=== PATIENT | male | born 1960 | race Caucasian/White ===

== ENCOUNTER 2017-07-31 11:02 | Observation (INO) | payer OTHER ==
--- NOTE | 2017-07-31 11:32 | PDOC ---
History of Present Illness - General Stated Complaint: AMS Time Seen by Provider: 07/31/17 11:32 - History of Present Illness Initial Comments: 07/31/17 11:59 Mr. Escalante is a 57 yo male with pmh of obesity, combined systolic and diastolic heart failure, CKD with anemia, Hyperlipidemia, HTN, GERD, pancytopenia, and fatty liver disease who presents from [facility] for evaluation after he was found to be more lethargic than normal. Per nursing staff he has difficulty ambulating at baseline but is typically AOx3. On exam he keeps repeating he was brought here "via [facility]" and mentions demons as well. Allergies: NKDA Past History - Past Medical History Allergies/Adverse Reactions: Allergies Allergy/AdvReac Type Severity Reaction Status Date / Time No Known Allergies Allergy Verified 06/22/13 17:49 Home Medications: Ambulatory Orders Loratadine [Claritin -] 10 mg PO DAILY 06/22/13 Carvedilol [Coreg -] 3.125 mg PO BID 07/31/17 Ferrous Sulfate [Feosol] 325 mg PO BID 07/31/17 Furosemide [Lasix] 20 mg PO BID 07/31/17 Magnesium Oxide [Magnesium] 400 mg PO BID 07/31/17 HTN: Yes Hypercholesterolemia: Yes - Suicide/Smoking/Psychosocial Hx Smoking Status: No Smoking History: Current some day smoker Cigars Per Day: 3 Review of Systems - Review of Systems Comments:: 07/31/17 12:05 Unable to obtain *Physical Exam - Physical Exam Comments: 07/31/17 12:11 GENERAL: Arousable but lethargic. Oriented to self only. Patient's skin yellow in appearance. HEAD: No signs of trauma, normocephalic, atraumatic EYES: PERRLA, EOMI, sclera anicteric, conjunctiva clear ENT: Auricles normal inspection, hearing grossly normal, nares patent, oropharynx clear without exudates. Moist mucosa NECK: Normal ROM, supple, no lymphadenopathy, JVD, or masses LUNGS: No distress, speaks full sentences, clear to auscultation bilaterally HEART: Regular rate and rhythm, normal S1 and S2, no murmurs, rubs or gallops, peripheral pulses normal and equal bilaterally. ABDOMEN: Soft, nontender, normoactive bowel sounds. No guarding, no rebound. No masses EXTREMITIES: +LLE and RLE wrapped with pressure stocking - no NEUROLOGICAL: Cranial nerves II through XII grossly intact. Normal speech, normal gait, no focal sensorimotor deficits SKIN: Warm, Dry, normal turgor, no rashes or lesions noted. 07/31/17 15:36 07/31/17 15:36 ED Treatment Course - LABORATORY CBC & Chemistry Diagram: 07/31/17 13:15 07/31/17 13:15 Medical Decision Making - Medical Decision Making 07/31/17 15:40 Full AMS workup begun on patient as was unable to provide history. Labs revealed ammonia 154.15, AST 67, BUN 28. Will admit patient for hyperammonemia treatment. Discussed patient with PCP's (Dr. Morales) partner Dr. Lau. Agreed with plan. Laboratory Results - last 24 hr 07/31/17 07/31/17 07/31/17 13:15 13:15 13:15 WBC 4.0 RBC 3.33 L Hgb 10.9 L Hct 31.2 L MCV 93.7 MCH 32.7 MCHC 35.0 RDW 15.4 Plt Count 50 L MPV 8.2 Neutrophils % 65.6 Lymphocytes % 15.1 Monocytes % 8.6 Eosinophils % 10.0 H Basophils % 0.7 PT with INR 18.40 H INR 1.63 H PTT (Actin FS) 37.0 H Sodium Potassium Chloride Carbon Dioxide Anion Gap BUN Creatinine Creat Clearance w eGFR Random Glucose Lactic Acid Calcium Total Bilirubin AST ALT Alkaline Phosphatase Ammonia Creatine Kinase Troponin I Total Protein Albumin Urine Color Yellow Urine Appearance Clear Urine pH 7.0 Ur Specific [place] 1.012 Urine Protein Negative Urine Glucose (UA) Negative Urine Ketones Negative Urine Blood 1+ H Urine Nitrite Negative Urine Bilirubin Negative Urine Urobilinogen 2.0 Urine WBC (Auto) None Urine RBC (Auto) 3 Ur Epithelial Cells Rare Salicylates Opiates Screen Methadone Screen Acetaminophen Barbiturate Screen Phencyclidine Screen Ur Amphetamines Screen MDMA (Ecstasy) Screen Benzodiazepines Screen Cocaine Screen U Marijuana (THC) Screen Blood Type Antibody Screen 07/31/17 07/31/17 07/31/17 13:15 13:15 13:15 WBC RBC Hgb Hct MCV MCH MCHC RDW Plt Count MPV Neutrophils % Lymphocytes % Monocytes % Eosinophils % Basophils % PT with INR INR PTT (Actin FS) Sodium 141 Potassium 4.8 Chloride 111 H Carbon Dioxide 26 Anion Gap 4 L BUN 28 H Creatinine 1.3 Creat Clearance w eGFR 56.50 Random Glucose 101 Lactic Acid Calcium 7.7 L Total Bilirubin 2.6 H AST 67 H ALT 29 Alkaline Phosphatase 100 Ammonia Creatine Kinase 83 Troponin I < 0.02 Total Protein 8.0 Albumin 1.9 L Urine Color Urine Appearance Urine pH Ur Specific [place] Urine Protein Urine Glucose (UA) Urine Ketones Urine Blood Urine Nitrite Urine Bilirubin Urine Urobilinogen Urine WBC (Auto) Urine RBC (Auto) Ur Epithelial Cells Salicylates < 4.0 Opiates Screen Methadone Screen Acetaminophen < 2.0 L Barbiturate Screen Phencyclidine Screen Ur Amphetamines Screen MDMA (Ecstasy) Screen Benzodiazepines Screen Cocaine Screen U Marijuana (THC) Screen Blood Type O POSITIVE Antibody Screen Negative 07/31/17 07/31/17 07/31/17 13:15 13:15 13:15 WBC RBC Hgb Hct MCV MCH MCHC RDW Plt Count MPV Neutrophils % Lymphocytes % Monocytes % Eosinophils % Basophils % PT with INR INR PTT (Actin FS) Sodium Potassium Chloride Carbon Dioxide Anion Gap BUN Creatinine Creat Clearance w eGFR Random Glucose Lactic Acid 1.7 Calcium Total Bilirubin AST ALT Alkaline Phosphatase Ammonia 154.15 H Creatine Kinase Troponin I Total Protein Albumin Urine Color Urine Appearance Urine pH Ur Specific [place] Urine Protein Urine Glucose (UA) Urine Ketones Urine Blood Urine Nitrite Urine Bilirubin Urine Urobilinogen Urine WBC (Auto) Urine RBC (Auto) Ur Epithelial Cells Salicylates Opiates Screen Negative Methadone Screen Negative Acetaminophen Barbiturate Screen Negative Phencyclidine Screen Negative Ur Amphetamines Screen Negative MDMA (Ecstasy) Screen Negative Benzodiazepines Screen Negative Cocaine Screen Negative U Marijuana (THC) Screen Negative Blood Type Antibody Screen *DC/Admit/Observation/Transfer Diagnosis at time of Disposition: Hyperammonemia - Discharge Dispostion Admit: Yes - Referrals Referrals: Valentine Morales MD [Primary Care Provider] - - Patient Instructions - Post Discharge Activity
--- NOTE | 2017-07-31 12:09 | PDOC ---
Attending Attestation - Resident Resident Name: Jose Dumont - ED Attending Attestation I have performed the following: I have examined & evaluated the patient, The case was reviewed & discussed with the resident, I agree w/resident's findings & plan, Exceptions are as noted - HPI HPI: 57 yo M history obesity, CHF, CKD, HL, HTN, GERD, pancytopenia, fatty liver sent by [facility] for lethargy. Patient does not offer history except to say he was sent by [facility]. - Physicial Exam PE: GENERAL: Awake, alert, in no acute distress. Oriented to person. +Jaundice. HEAD: No signs of trauma EYES: PERRLA, EOMI, sclera anicteric, conjunctiva clear ENT: Auricles normal inspection, hearing grossly normal, nares patent, oropharynx clear without exudates. Moist mucosa NECK: Normal ROM, supple, no lymphadenopathy, JVD, or masses LUNGS: Breath sounds equal, clear to auscultation bilaterally. No wheezes, and no crackles HEART: Regular rate and rhythm, normal S1 and S2, no murmurs, rubs or gallops ABDOMEN: Soft, nontender, normoactive bowel sounds. No guarding, no rebound. No masses EXTREMITIES: Normal range of motion, no edema. No clubbing or cyanosis. No cords, erythema, or tenderness NEUROLOGICAL: Cranial nerves II through XII grossly intact. Motor and sensation intact. Gait not tested due to nature of complaint. SKIN: Warm, Dry, normal turgor, no rashes or lesions noted. - Medical Decision Making As per [facility] report patient is usually alert and oriented. At present he is giving nonsensical answers to questions, not making eye contact. He appeared jaundiced on exam. Labs show significantly elevated ammonia. Will admit for hepatic encephalopathy.
[2017-07-31] MEDS ORDERED: ASPIRIN 81 MG CHEWABLE TABLETS PO ONE (12:17)
[2017-07-31] MEDS ORDERED: ONDANSETRON 4 MG/2 ML VIAL IVPUSH ONE (12:56)
[2017-07-31] MEDS ORDERED: ONDANSETRON 4 MG/2 ML VIAL ONE (13:06)
[2017-07-31 13:26] LABS: BASOPHIL 0.7 % (0-2.0)
[2017-07-31 13:27] LABS: URINE APPEARANCE CLEAR; URINE BILIRUBIN NEGATIVE (NEGATIVE); URINE BLOOD 1+ (NEGATIVE); URINE COLOR YELLOW; URINE GLUCOSE (UA) NEGATIVE (NEGATIVE); URINE KETONE NEGATIVE (NEGATIVE); URINE NITRITE NEGATIVE (NEGATIVE); URINE PROTEIN NEGATIVE (NEGATIVE)
[2017-07-31 13:34] LABS: URINE RBC 3 /hpf (0-3)
[2017-07-31] MEDS ORDERED: MAGNESIUM CITRATE 300 ML BOTTLE PO ONE (13:34)
[2017-07-31 13:38] LABS: INR 1.63 (0.82-1.09); PROTHROMBIN TIME (PATIENT) 18.4 SEC (9.98-11.88)
[2017-07-31 13:39] LABS: MCH 32.7 pg (25.7-33.7); MEAN CELL VOLUME 93.7 fl (80-96); MEAN PLT VOLUME 8.2 fl (7.5-11.1); NEUTROPHILS 65.6 % (42.8-82.8); PLATELET COUNT 50 K/MM3 (134-434); RDW 15.4 % (11.9-15.9)
[2017-07-31 13:41] LABS: URINE MARIJUANA THC NEGATIVE ng/ml (CUTOFF=50)
[2017-07-31 14:24] LABS: ALBUMIN 1.9 g/dl (3.4-5.0); ANION GAP 4 (8-16); BILIRUBIN,TOTAL 2.6 mg/dL (0.2-1.0); CALCIUM 7.7 mg/dL (8.5-10.1); CO2 26 mmol/L (21-32); CPK 83 IU/L (39-308); CREATININE 1.3 mg/dL (0.7-1.3); GLUCOSE,RANDOM 101 mg/dL (74-106); SGOT/AST 67 U/L (15-37); SGPT/ALT 29 U/L (12-78)
[2017-07-31 14:26] LABS: ALK PHOS 100 U/L (45-117); TROPONIN I < 0.02 ng/ml (0.00-0.05)
[2017-07-31 14:37] LABS: SALICYLATE < 4.0 mg/dl (0.0-30.0)
[2017-07-31] MEDS ORDERED: LACTULOSE 20 GM/30 ML UDC (FOR ORAL USE ONLY) PO ONE (15:28)
[2017-07-31] MEDS ORDERED: LACTULOSE 20 GM/30 ML UDC (FOR ORAL USE ONLY) ONE (15:55)
[2017-07-31 18:41] VITALS: BMI 51.0
--- NOTE | 2017-07-31 19:26 | HP ---
CHIEF COMPLAINT: Altered Mental Status PCP: Dr. Morales HISTORY OF PRESENT ILLNESS: This is a 57 y/o man with a significant medical history of CHF, HTN, HLD, CKD, Fatty Liver, Pancytopenia. Who presents from [facility] for AMS. Per [facility] records, patient was found to be altered not at baseline AAOx3 , increasingly lethargic. In the ED, the patient told the staff that "[facility] sent me here". At bedside, patient appears coherent, but forgetful. He has no recall of the events at the [facility]. Patient reports feeling tired with generalized weakness. Patient denies fever, chills, cough, dizziness, SOB, CP, AP, N/V/D, constipation, dysuria. ER course was notable for: (1) Ammonia-151 (2) CT Head- no intracranial pathology (3) Chest Xray- Scolosis, CM (4) Platelets- 50 Recent Travel: None PAST MEDICAL HISTORY: See HPI PAST SURGICAL HISTORY: Social History: Smoking: Current daily Alcohol: Denies Drugs: Denies Family History: Non-contributory Allergies No Known Allergies Allergy (Verified 06/22/13 17:49) HOME MEDICATIONS: Home Medications Medication Instructions Recorded Loratadine [Claritin -] 10 mg PO DAILY 06/22/13 Carvedilol [Coreg -] 3.125 mg PO BID 07/31/17 Ferrous Sulfate [Feosol] 325 mg PO BID 07/31/17 Furosemide [Lasix] 20 mg PO BID 07/31/17 Magnesium Oxide [Magnesium] 400 mg PO BID 07/31/17 REVIEW OF SYSTEMS CONSTITUTIONAL: Absent: fever, chills, diaphoresis, generalized weakness, malaise, loss of appetite, weight change HEENT: Absent: rhinorrhea, nasal congestion, throat pain, throat swelling, difficulty swallowing, mouth swelling, ear pain, eye pain, visual changes CARDIOVASCULAR: Absent: chest pain, syncope, palpitations, irregular heart rate, lightheadedness , peripheral edema RESPIRATORY: Absent: cough, shortness of breath, dyspnea with exertion, orthopnea, wheezing, stridor, hemoptysis GASTROINTESTINAL: Absent: abdominal pain, abdominal distension, nausea, vomiting, diarrhea, constipation, melena, hematochezia GENITOURINARY: Absent: dysuria, frequency, urgency, hesitancy, hematuria, flank pain, genital pain MUSCULOSKELETAL: Absent: myalgia, arthralgia, joint swelling, back pain, neck pain SKIN: Absent: rash, itching, pallor HEMATOLOGIC/IMMUNOLOGIC: Absent: easy bleeding, easy bruising, lymphadenopathy, frequent infections ENDOCRINE: Absent: unexplained weight gain, unexplained weight loss, heat intolerance, cold intolerance NEUROLOGIC: mental status changes Absent: headache, focal weakness or paresthesias, dizziness, unsteady gait, seizure, bladder or bowel incontinence PSYCHIATRIC: hallucinations Absent: anxiety, depression, suicidal or homicidal ideation. PHYSICAL EXAMINATION Vital Signs - 24 hr 07/31/17 07/31/17 07/31/17 11:05 13:24 15:58 Temperature 97.4 F L 98.6 F Pulse Rate 63 Pulse Rate [ 62 Apical] Respiratory 18 16 Rate Blood Pressure 137/7 Blood Pressure 137/74 [Left Arm] O2 Sat by Pulse 100 100 Oximetry (%) 07/31/17 18:12 Temperature 97.9 F Pulse Rate 60 Pulse Rate [ Apical] Respiratory 18 Rate Blood Pressure 150/79 Blood Pressure [Left Arm] O2 Sat by Pulse Oximetry (%) GENERAL: Severely Obese, Awake, alert, and oriented x2, in no acute distress. HEAD: Normal with no signs of trauma. EYES: Pupils equal, round and reactive to light, extraocular movements intact, inner canthus mildly icteric, conjunctiva clear. No lid lag. EARS, NOSE, THROAT: Ears normal, nares patent, oropharynx clear without exudates. Dry mucous membranes. NECK: Normal range of motion, supple without lymphadenopathy, JVD, or masses. LUNGS: Breath sounds equal, clear to auscultation bilaterally. No wheezes, and no crackles. No accessory muscle use. HEART: Regular rate and rhythm, normal S1 and S2 without murmur, rub or gallop. ABDOMEN: Soft, nontender, not distended, normoactive bowel sounds, no guarding, no rebound, no masses. No hepatomegaly or splenomegaly. MUSCULOSKELETAL: Normal range of motion at all joints. No bony deformities or tenderness. No CVA tenderness. UPPER EXTREMITIES: 2+ pulses, warm, well-perfused. No cyanosis. No clubbing. No peripheral edema. LOWER EXTREMITIES: 2+ pulses, warm, well-perfused. No calf tenderness. Bilateral +2 pitting peripheral edema. NEUROLOGICAL: Cranial nerves II-XII intact. Normal speech. Gait not observed. PSYCHIATRIC: Cooperative. Good eye contact. Appropriate mood and affect. SKIN: Warm, dry, normal turgor, no rashes or normal capillary refill. Venous stasis ulcer LLE noted Laboratory Results - last 24 hr 07/31/17 07/31/17 07/31/17 13:15 13:15 13:15 WBC 4.0 RBC 3.33 L Hgb 10.9 L Hct 31.2 L MCV 93.7 MCH 32.7 MCHC 35.0 RDW 15.4 Plt Count 50 L MPV 8.2 Neutrophils % 65.6 Lymphocytes % 15.1 Monocytes % 8.6 Eosinophils % 10.0 H Basophils % 0.7 PT with INR 18.40 H INR 1.63 H PTT (Actin FS) 37.0 H Sodium Potassium Chloride Carbon Dioxide Anion Gap BUN Creatinine Creat Clearance w eGFR Random Glucose Lactic Acid Calcium Total Bilirubin AST ALT Alkaline Phosphatase Ammonia Creatine Kinase Troponin I Total Protein Albumin Urine Color Yellow Urine Appearance Clear Urine pH 7.0 Ur Specific [place] 1.012 Urine Protein Negative Urine Glucose (UA) Negative Urine Ketones Negative Urine Blood 1+ H Urine Nitrite Negative Urine Bilirubin Negative Urine Urobilinogen 2.0 Urine WBC (Auto) None Urine RBC (Auto) 3 Ur Epithelial Cells Rare Salicylates Opiates Screen Methadone Screen Acetaminophen Barbiturate Screen Phencyclidine Screen Ur Amphetamines Screen MDMA (Ecstasy) Screen Benzodiazepines Screen Cocaine Screen U Marijuana (THC) Screen Blood Type Antibody Screen 07/31/17 07/31/17 07/31/17 13:15 13:15 13:15 WBC RBC Hgb Hct MCV MCH MCHC RDW Plt Count MPV Neutrophils % Lymphocytes % Monocytes % Eosinophils % Basophils % PT with INR INR PTT (Actin FS) Sodium 141 Potassium 4.8 Chloride 111 H Carbon Dioxide 26 Anion Gap 4 L BUN 28 H Creatinine 1.3 Creat Clearance w eGFR 56.50 Random Glucose 101 Lactic Acid Calcium 7.7 L Total Bilirubin 2.6 H AST 67 H ALT 29 Alkaline Phosphatase 100 Ammonia Creatine Kinase 83 Troponin I < 0.02 Total Protein 8.0 Albumin 1.9 L Urine Color Urine Appearance Urine pH Ur Specific [place] Urine Protein Urine Glucose (UA) Urine Ketones Urine Blood Urine Nitrite Urine Bilirubin Urine Urobilinogen Urine WBC (Auto) Urine RBC (Auto) Ur Epithelial Cells Salicylates < 4.0 Opiates Screen Methadone Screen Acetaminophen < 2.0 L Barbiturate Screen Phencyclidine Screen Ur Amphetamines Screen MDMA (Ecstasy) Screen Benzodiazepines Screen Cocaine Screen U Marijuana (THC) Screen Blood Type O POSITIVE Antibody Screen Negative 07/31/17 07/31/17 07/31/17 13:15 13:15 13:15 WBC RBC Hgb Hct MCV MCH MCHC RDW Plt Count MPV Neutrophils % Lymphocytes % Monocytes % Eosinophils % Basophils % PT with INR INR PTT (Actin FS) Sodium Potassium Chloride Carbon Dioxide Anion Gap BUN Creatinine Creat Clearance w eGFR Random Glucose Lactic Acid 1.7 Calcium Total Bilirubin AST ALT Alkaline Phosphatase Ammonia 154.15 H Creatine Kinase Troponin I Total Protein Albumin Urine Color Urine Appearance Urine pH Ur Specific [place] Urine Protein Urine Glucose (UA) Urine Ketones Urine Blood Urine Nitrite :Urine Bilirubin Urine Urobilinogen Urine WBC (Auto) Urine RBC (Auto) Ur Epithelial Cells Salicylates Opiates Screen Negative Methadone Screen Negative Acetaminophen Barbiturate Screen Negative Phencyclidine Screen Negative Ur Amphetamines Screen Negative MDMA (Ecstasy) Screen Negative Benzodiazepines Screen Negative Cocaine Screen Negative U Marijuana (THC) Screen Negative Blood Type Antibody Screen ASSESSMENT/PLAN: This is a 57 y/o man with a PMHx of: CHF, CKD, HLD, HTN, GERD, Pancytopenia, Fatty Liver Disease. Admitted to [facility] for AMS secondary to Hyperammonemia, for further evaluation of their emergent condition. Plan: FEN - Fluid restriction IL - Replete lytes prn - Low Na Diet Code Status: Full Code Dispo: Requires Inpatient Care Problem List - Problem (1) Hyperammonemia Assessment/Plan: - Likely secondary to Liver Disease vs Neurological vs Medication - Ammonia- 151 - Lactulose given in ED - Repeat Ammonia level- pending - CT Head- neg ICH - Neuro checks - Fall Precautions - Monitor vitals - Consider GI Consult if condition worsens Code(s): E72.20 - DISORDER OF UREA CYCLE METABOLISM, UNSPECIFIED (2) Altered mental status Assessment/Plan: -Likely secondary to Hyperammonemia - CT Head- neg ICH - Lactulose given in ED - Repeat Ammonia-pending - Fall precautions - Neuro checks - Monitor vitals Code(s): R41.82 - ALTERED MENTAL STATUS, UNSPECIFIED (3) Thrombocytopenia Assessment/Plan: - Likely secondary to Liver Disease - Platelets 50, no baseline to compare - No active bleed - Continue to monitor and treat with interventions accordingly Code(s): D69.6 - THROMBOCYTOPENIA, UNSPECIFIED (4) Fatty liver Assessment/Plan: - Continue to monitor and treat accordingly - Avoid liver toxic medications Code(s): K76.0 - FATTY (CHANGE OF) LIVER, NOT ELSEWHERE CLASSIFIED (5) CKD (chronic kidney disease) Assessment/Plan: - Monitor, avoid nephro toxic drugs Code(s): N18.9 - CHRONIC KIDNEY DISEASE, UNSPECIFIED (6) CHF (congestive heart failure) Assessment/Plan: - Continue Lasix - Daily weights - Chest Xray- no vascular congestion Code(s): I50.9 - HEART FAILURE, UNSPECIFIED (7) HTN (hypertension) Assessment/Plan: - Controlled - Continue Coreg - Monitor BP Code(s): I10 - ESSENTIAL (PRIMARY) HYPERTENSION (8) HLD (hyperlipidemia) Assessment/Plan: - Low Cholesterol Diet - No Statin secondary to fatty liver Code(s): E78.5 - HYPERLIPIDEMIA, UNSPECIFIED (9) GERD (gastroesophageal reflux disease) Assessment/Plan: - PPI prn Code(s): K21.9 - GASTRO-ESOPHAGEAL REFLUX DISEASE WITHOUT ESOPHAGITIS (10) DVT prophylaxis Assessment/Plan: - OOB - SCD - Hold AC secondary to thrombocytopenia Code(s): [id number] - Visit type - Emergency Visit Emergency Visit: Yes ED Registration Date: 07/31/17 Care time: The patient presented to the Emergency Department on the above date and was hospitalized for further evaluation of their emergent condition. - New Patient This patient is new to me today: Yes Date on this admission: 08/01/17 - Critical Care Critical Care patient: No
[2017-07-31 19:39] LABS: URINE LEUK ESTERASE Negative (NEGATIVE)
[2017-07-31 21:12] LABS: ANION GAP 5 (8-16); CALCIUM 7.9 mg/dL (8.5-10.1); CO2 24 mmol/L (21-32); CREATININE 1.3 mg/dL (0.7-1.3); GLUCOSE,RANDOM 79 mg/dL (74-106); SGOT/AST 64 U/L (15-37); SGPT/ALT 29 U/L (12-78)
[2017-07-31 21:14] LABS: ALK PHOS 98 U/L (45-117); BILIRUBIN,TOTAL 3.2 mg/dL (0.2-1.0); TOT PROT 8.1 g/dl (6.4-8.2)
[2017-08-01 05:48] VITALS: TEMP 98.7
[2017-08-01 07:53] LABS: BASOPHIL 0.7 % (0-2.0); EOSINOPHIL 8.2 % (0-4.5); MCH 32.5 pg (25.7-33.7); MCHC 34.8 g/dl (32.0-35.9); MEAN CELL VOLUME 93.3 fl (80-96); MEAN PLT VOLUME 7.7 fl (7.5-11.1); NEUTROPHILS 64.1 % (42.8-82.8); PLATELET COUNT 45 K/MM3 (134-434); RDW 15.3 % (11.9-15.9); WHITE BLOOD COUNT 4.3 K/mm3 (4.0-10.0)
[2017-08-01 08:35] LABS: ANION GAP 7 (8-16); CALCIUM 7.7 mg/dL (8.5-10.1); CO2 22 mmol/L (21-32); CREATININE 1.4 mg/dL (0.7-1.3); GLUCOSE,RANDOM 77 mg/dL (74-106); PHOSPHOROUS 3.7 mg/dL (2.5-4.9)
[2017-08-01] MEDS ORDERED: LACTULOSE 20 GM/30 ML UDC (FOR ORAL USE ONLY) PO ONE (09:31)
[2017-08-01] MEDS ORDERED: CARVEDILOL 3.125 MG TABLET (FP) PO SCH (10:00)
[2017-08-01] MEDS ORDERED: FUROSEMIDE 20 MG TABLET (FP) PO SCH (10:00)
[2017-08-01] MEDS ORDERED: LORATADINE 10 MG TABLET PO SCH (10:00)
[2017-08-01] MEDS ORDERED: MAGNESIUM OXIDE 400 MG TABLET (FP) PO SCH (10:00)
[2017-08-01] MEDS ORDERED: FERROUS SO4 325 MG TABLET (FP) PO SCH (10:00)
--- NOTE | 2017-08-01 12:44 | DS ---
Physical Exam: SUBJECTIVE: Patient seen and examined. No complaints at present. OBJECTIVE: Vital Signs Period Temp Pulse Resp BP Sys/Stephenson Pulse Ox Last 24 Hr 97.9 F-98.7 F 60-73 16-20 128-152/72-85 99-100 PHYSICAL EXAM GENERAL: The patient is awake, alert, and fully oriented, in no acute distress. LUNGS: Breath sounds equal, clear to auscultation bilaterally, no wheezes, no crackles, no accessory muscle use. HEART: Regular rate and rhythm, S1, S2 without murmur, rub or gallop. ABDOMEN: Obese, soft, nontender, nondistended, normoactive bowel sounds, no guarding, no rebound, no hepatosplenomegaly, no masses. EXTREMITIES: 2+ pulses, warm, well-perfused, no edema. NEUROLOGICAL: Cranial nerves II through XII grossly intact. Normal speech, gait not observed. PSYCH: Normal mood, normal affect. SKIN: Venous stasis changes to left lower leg. LABS Laboratory Results - last 24 hr 07/31/17 07/31/17 07/31/17 13:15 13:15 13:15 WBC 4.0 RBC 3.33 L Hgb 10.9 L Hct 31.2 L MCV 93.7 MCH 32.7 MCHC 35.0 RDW 15.4 Plt Count 50 L MPV 8.2 Neutrophils % 65.6 Lymphocytes % 15.1 Monocytes % 8.6 Eosinophils % 10.0 H Basophils % 0.7 PT with INR 18.40 H INR 1.63 H PTT (Actin FS) 37.0 H Sodium Potassium Chloride Carbon Dioxide Anion Gap BUN Creatinine Creat Clearance w eGFR Random Glucose Lactic Acid Calcium Phosphorus Magnesium Total Bilirubin AST ALT Alkaline Phosphatase Ammonia Creatine Kinase Troponin I Total Protein Albumin Urine Color Yellow Urine Appearance Clear Urine pH 7.0 Ur Specific Gunpowder 1.012 Urine Protein Negative Urine Glucose (UA) Negative Urine Ketones Negative Urine Blood 1+ H Urine Nitrite Negative Urine Bilirubin Negative Urine Urobilinogen 2.0 Ur Leukocyte Esterase Negative Urine WBC (Auto) None Urine RBC (Auto) 3 Ur Epithelial Cells Rare Salicylates Opiates Screen Methadone Screen Acetaminophen Barbiturate Screen Phencyclidine Screen Ur Amphetamines Screen MDMA (Ecstasy) Screen Benzodiazepines Screen Cocaine Screen U Marijuana (THC) Screen Blood Type Antibody Screen 11/25/17 11/25/17 11/25/17 13:15 13:15 13:15 WBC RBC Hgb Hct MCV MCH MCHC RDW Plt Count MPV Neutrophils % Lymphocytes % Monocytes % Eosinophils % Basophils % PT with INR INR PTT (Actin FS) Sodium 141 Potassium 4.8 Chloride 111 H Carbon Dioxide 26 Anion Gap 4 L BUN 28 H Creatinine 1.3 Creat Clearance w eGFR 56.50 Random Glucose 101 Lactic Acid Calcium 7.7 L Phosphorus Magnesium Total Bilirubin 2.6 H AST 67 H ALT 29 Alkaline Phosphatase 100 Ammonia Creatine Kinase 83 Troponin I < 0.02 Total Protein 8.0 Albumin 1.9 L Urine Color Urine Appearance Urine pH Ur Specific Gunpowder Urine Protein Urine Glucose (UA) Urine Ketones Urine Blood Urine Nitrite Urine Bilirubin Urine Urobilinogen Ur Leukocyte Esterase Urine WBC (Auto) Urine RBC (Auto) Ur Epithelial Cells Salicylates < 4.0 Opiates Screen Methadone Screen Acetaminophen < 2.0 L Barbiturate Screen Phencyclidine Screen Ur Amphetamines Screen MDMA (Ecstasy) Screen Benzodiazepines Screen Cocaine Screen U Marijuana (THC) Screen Blood Type O POSITIVE Antibody Screen Negative 07/31/17 07/31/17 07/31/17 13:15 13:15 13:15 WBC RBC Hgb Hct MCV MCH MCHC RDW Plt Count MPV Neutrophils % Lymphocytes % Monocytes % Eosinophils % Basophils % PT with INR INR PTT (Actin FS) Sodium Potassium Chloride Carbon Dioxide Anion Gap BUN Creatinine Creat Clearance w eGFR Random Glucose Lactic Acid 1.7 Calcium Phosphorus Magnesium Total Bilirubin AST ALT Alkaline Phosphatase Ammonia 154.15 H Creatine Kinase Troponin I Total Protein Albumin Urine Color Urine Appearance Urine pH Ur Specific Gunpowder Urine Protein Urine Glucose (UA) Urine Ketones Urine Blood Urine Nitrite Urine Bilirubin Urine Urobilinogen Ur Leukocyte Esterase Urine WBC (Auto) Urine RBC (Auto) Ur Epithelial Cells Salicylates Opiates Screen Negative Methadone Screen Negative Acetaminophen Barbiturate Screen Negative Phencyclidine Screen Negative Ur Amphetamines Screen Negative MDMA (Ecstasy) Screen Negative Benzodiazepines Screen Negative Cocaine Screen Negative U Marijuana (THC) Screen Negative Blood Type Antibody Screen 07/31/17 07/31/17 08/01/17 19:30 23:30 06:20 WBC 4.3 RBC 3.00 L Hgb 9.8 L D Hct 28.0 L MCV 93.3 MCH 32.5 MCHC 34.8 RDW 15.3 Plt Count 45 L MPV 7.7 Neutrophils % 64.1 Lymphocytes % 16.6 Monocytes % 10.4 H Eosinophils % 8.2 H Basophils % 0.7 PT with INR INR PTT (Actin FS) Sodium 142 Potassium 4.5 Chloride 113 H Carbon Dioxide 24 Anion Gap 5 L BUN 28 H Creatinine 1.3 Creat Clearance w eGFR 56.50 Random Glucose 79 D Lactic Acid Calcium 7.9 L Phosphorus Magnesium Total Bilirubin 3.2 H D AST 64 H ALT 29 Alkaline Phosphatase 98 Ammonia 62.5 H Creatine Kinase Troponin I Total Protein 8.1 Albumin 2.0 L Urine Color Urine Appearance Urine pH Ur Specific Gunpowder Urine Protein Urine Glucose (UA) Urine Ketones Urine Blood Urine Nitrite Urine Bilirubin Urine Urobilinogen Ur Leukocyte Esterase Urine WBC (Auto) Urine RBC (Auto) Ur Epithelial Cells Salicylates Opiates Screen Methadone Screen Acetaminophen Barbiturate Screen Phencyclidine Screen Ur Amphetamines Screen MDMA (Ecstasy) Screen Benzodiazepines Screen Cocaine Screen U Marijuana (THC) Screen Blood Type Antibody Screen 08/01/17 08/01/17 06:20 06:20 WBC RBC Hgb Hct MCV MCH MCHC RDW Plt Count MPV Neutrophils % Lymphocytes % Monocytes % Eosinophils % Basophils % PT with INR INR PTT (Actin FS) Sodium 141 Potassium 4.7 Chloride 112 H Carbon Dioxide 22 Anion Gap 7 L BUN 27 H Creatinine 1.4 H Creat Clearance w eGFR Random Glucose 77 Lactic Acid Calcium 7.7 L Phosphorus 3.7 Magnesium 2.0 Total Bilirubin AST ALT Alkaline Phosphatase Ammonia 76.46 H Creatine Kinase Troponin I Total Protein Albumin Urine Color Urine Appearance Urine pH Ur Specific Gunpowder Urine Protein Urine Glucose (UA) Urine Ketones Urine Blood Urine Nitrite Urine Bilirubin Urine Urobilinogen Ur Leukocyte Esterase Urine WBC (Auto) Urine RBC (Auto) Ur Epithelial Cells Salicylates Opiates Screen Methadone Screen Acetaminophen Barbiturate Screen Phencyclidine Screen Ur Amphetamines Screen MDMA (Ecstasy) Screen Benzodiazepines Screen Cocaine Screen U Marijuana (THC) Screen Blood Type Antibody Screen HOSPITAL COURSE: Date of Admission:07/31/17 Date of Discharge: 08/01/17 Minutes to complete discharge: 30 Discharge Summary Reason For Visit: AMS Current Active Problems Altered mental status (Acute) CHF (congestive heart failure) (Acute) CKD (chronic kidney disease) (Acute) DVT prophylaxis (Acute) Fatty liver (Acute) GERD (gastroesophageal reflux disease) (Acute) HLD (hyperlipidemia) (Acute) HTN (hypertension) (Acute) Hyperammonemia (Acute) Thrombocytopenia (Acute) Hospital Course: This is a 57 y/o man with a significant medical history of CHF, HTN, HLD, CKD, Fatty Liver, Pancytopenia who presented from [facility] for AMS. Per long term records, patient was found to be altered off of baseline increasingly lethargic. In the ED, the patient told the staff that "Franky sent me here". At bedside, patient appears coherent, but forgetful. He has no recall of the events at the long term. Patient reports feeling tired with generalized weakness. Patient denies fever, chills, cough, dizziness, SOB, CP, AP, N/V/D, constipation, dysuria. - Problem (1) Hyperammonemia Assessment/Plan: - Likely secondary to Liver Disease vs Neurological vs Medication - Ammonia- 151 - Lactulose given with return to baseline mental status - Repeat Ammonia level-62 - CT Head- neg ICH Code(s): E72.20 - DISORDER OF UREA CYCLE METABOLISM, UNSPECIFIED (2) Altered mental status Assessment/Plan: - Likely secondary to Hyperammonemia - CT Head- neg ICH - Lactulose given with return to baseline mental status - Repeat Ammonia- 62 - Utox negative Code(s): R41.82 - ALTERED MENTAL STATUS, UNSPECIFIED (3) Thrombocytopenia Assessment/Plan: - Likely secondary to Liver Disease - Platelets 50, no baseline to compare - No active bleeding - CT Head- neg ICH - Continue to monitor as outpatient Code(s): D69.6 - THROMBOCYTOPENIA, UNSPECIFIED (4) Fatty liver Assessment/Plan: - Continue to monitor and treat accordingly - Avoid liver toxic medications Code(s): K76.0 - FATTY (CHANGE OF) LIVER, NOT ELSEWHERE CLASSIFIED (5) CKD (chronic kidney disease) Assessment/Plan: - Monitor, avoid nephro toxic drugs Code(s): N18.9 - CHRONIC KIDNEY DISEASE, UNSPECIFIED (6) CHF (congestive heart failure) Assessment/Plan: - Continue Lasix - Daily weights - Chest Xray- no vascular congestion Code(s): I50.9 - HEART FAILURE, UNSPECIFIED (7) HTN (hypertension) Assessment/Plan: - Controlled - Continue Coreg Code(s): I10 - ESSENTIAL (PRIMARY) HYPERTENSION (8) HLD (hyperlipidemia) Assessment/Plan: - Low Cholesterol Diet - No Statin secondary to fatty liver Code(s): E78.5 - HYPERLIPIDEMIA, UNSPECIFIED (9) GERD (gastroesophageal reflux disease) Assessment/Plan: - PPI prn Code(s): K21.9 - GASTRO-ESOPHAGEAL REFLUX DISEASE WITHOUT ESOPHAGITIS (10) DVT prophylaxis Assessment/Plan: - OOB Code(s): SIY7467 - Condition: Stable - Instructions Diet, Activity, Other Instructions: Take lactulose 4 times daily until you have 2-3 bowel movements daily. Resume all home medications. Return to the ER for headaches, dizziness, bleeding, change in mental status, or any other concerns. Referrals: Valentine Morales MD [Primary Care Provider] - Disposition: LONGTERM FACILITY - Home Medications Comprehensive Discharge Medication List: Ambulatory Orders Loratadine [Claritin -] 10 mg PO DAILY 06/22/13 Carvedilol [Coreg -] 3.125 mg PO BID 07/31/17 Ferrous Sulfate [Feosol] 325 mg PO BID 07/31/17 Furosemide [Lasix] 20 mg PO BID 07/31/17 Magnesium Oxide [Magnesium] 400 mg PO BID 07/31/17 Lactulose (Oral Use) [Cephulac -] 20 gm PO QID #1 bottle 08/01/17 This patient is new to me today: Yes Date on this admission: 08/01/17 Emergency Visit: Yes ED Registration Date: 07/31/17 Care time: The patient presented to the Emergency Department on the above date and was hospitalized for further evaluation of their emergent condition. Critical Care patient: No - Discharge Referral Referred to [facility] No
[2017-08-01 14:02] VITALS: BP 114/65; PULSE 94
--- NOTE | 2017-08-02 14:43 | EKG ---
Test Reason : Blood Pressure : / mmHG Vent. Rate : 063 BPM Atrial Rate : 063 BPM P-R Int : 184 ms QRS Dur : 154 ms QT Int : 474 ms P-R-T Axes : 059 -31 020 degrees QTc Int : 485 ms SINUS RHYTHM LEFT AXIS DEVIATION RIGHT BUNDLE BRANCH BLOCK ABNORMAL ECG NO PREVIOUS ECGS AVAILABLE Confirmed by KARLEE ROGERS, NEGRA ([id number]) on 08/02/2017 2:42:43 PM Referred By: Confirmed By:NEGRA DESIR MD
== END 2017-08-01 17:18 ==
LOC: JER 11:02 → INTOOBSV 18:12 → J7W 18:12 → UNDOADMOB 18:12 → J7W 19:00 → UNDOADMOB 08-01 10:58
PROVIDERS: ADMIT Family Medicine; ATTEND Nurse Practitioner Family
PROC: 3E033GC Introduction of Other Therapeutic Substance into Peripheral Vein, Percutaneous Approach (ICD-10-PCS; principal; 2017-07-31)
DX: E72.20 Disorder of urea cycle metabolism, unspecified (principal); R41.82 Altered mental status, unspecified; D69.6 Thrombocytopenia, unspecified; K76.0 Fatty (change of) liver, not elsewhere classified; I12.9 Hypertensive chronic kidney disease with stage 1 through stage 4 chronic kidney disease, or unspecified chronic kidney disease; N18.9 Chronic kidney disease, unspecified; I50.40 Unspecified combined systolic (congestive) and diastolic (congestive) heart failure; I10 Essential (primary) hypertension; E78.5 Hyperlipidemia, unspecified; K21.9 Gastro-esophageal reflux disease without esophagitis; E66.9 Obesity, unspecified; Z68.43 Body mass index [BMI] 50.0-59.9, adult
CPT/HCPCS: 36415; 70450-TC; 71010-TC; 80048; 80053; 80307; 81003; 81015; 82140; 82550; 83605; 83735; 84100; 84484; 85025; 85610; 85730; 86850; 86900; 86901; 87040; 87086; 93005; 93010; 99285-25; G0378

== ENCOUNTER 2017-08-10 14:35 | Emergency (ER) | payer OTHER ==
[2017-08-10 15:07] VITALS: BP 142/70; PULSE 72; TEMP 98; BMI 45.6
--- NOTE | 2017-08-10 15:14 | PDOC ---
History of Present Illness - General History Source: Patient Exam Limitations: No Limitations - History of Present Illness Initial Comments: 08/10/17 15:35 The patient is a 57 year old male with a significant PMH of CHF, CKD, HL, HTN, GERD, pancytopenia, fatty liver disease who presents to the emergency department with altered mental status. The patient is not providing a clear history other than stating he did not take his lactulose his morning. Allergies: NKA Past surgical history: None reported. Social history: No reported cigarette, drug, or alcohol use. PCP: Dr. Lau <Elyssa Lozano - Last Filed: 08/10/17 15:35> <Soraya Matute - Last Filed: 08/10/17 17:22> - General Chief Complaint: Altered Mental Status Stated Complaint: ALTERED MENTAL Time Seen by Provider: 08/10/17 15:14 Past History <Elyssa Lozano - Last Filed: 08/10/17 15:35> - Past Medical History Anemia: Yes (pancytopenia,thrombocytopenia, chronic anemia) COPD: No Dementia: No (altered mental status.) GI Disorders: Yes (gerd) HTN: Yes Hypercholesterolemia: Yes Psychiatric Problems: Yes - Suicide/Smoking/Psychosocial Hx Smoking Status: No Smoking History: Never smoked Have you smoked in the past 12 months: No Cigars Per Day: 3 Information on smoking cessation initiated: No Hx Alcohol Use: No Drug/Substance Use Hx: No Substance Use Type: None <Soraya Matute - Last Filed: 08/10/17 17:22> - Past Medical History Allergies/Adverse Reactions: Allergies Allergy/AdvReac Type Severity Reaction Status Date / Time No Known Allergies Allergy Verified 08/10/17 15:06 Home Medications: Ambulatory Orders Loratadine [Claritin -] 10 mg PO DAILY 06/22/13 Carvedilol [Coreg -] 3.125 mg PO BID 07/31/17 Ferrous Sulfate [Feosol] 325 mg PO BID 07/31/17 Furosemide [Lasix] 20 mg PO BID 07/31/17 Magnesium Oxide [Magnesium] 400 mg PO BID 07/31/17 Lactulose (Oral Use) [Cephulac -] 45 gm PO QID 08/10/17 Nystatin Powder [Nystop Topical Powder -] 60 gm TP DAILY 08/10/17 Review of Systems - Review of Systems Able to Perform ROS?: Yes Comments:: 08/10/17 15:36 GENERAL/CONSTITUTIONAL: No fever or chills. No weakness. HEAD, EYES, EARS, NOSE AND THROAT: No change in vision. No ear pain or discharge. No sore throat. CARDIOVASCULAR: No chest pain or shortness of breath. RESPIRATORY: No cough, wheezing, or hemoptysis. GASTROINTESTINAL: No nausea, vomiting, diarrhea or constipation. GENITOURINARY: No dysuria, frequency, or change in urination. MUSCULOSKELETAL: No joint or muscle swelling or pain. No neck or back pain. SKIN: No rash NEUROLOGIC: (+) Altered mental status. No headache, vertigo, loss of consciousness, or change in strength/sensation. ENDOCRINE: No increased thirst. No abnormal weight change. HEMATOLOGIC/LYMPHATIC: No anemia, easy bleeding, or history of blood clots. ALLERGIC/IMMUNOLOGIC: No hives or skin allergy. <Elyssa Lozano - Last Filed: 08/10/17 15:35> *Physical Exam - Vital Signs Last Vital Signs Temp Pulse Resp BP Pulse Ox 98.0 F 72 18 142/70 96 08/10/17 14:40 08/10/17 14:40 08/10/17 14:40 08/10/17 14:40 08/10/17 14:40 <lEyssa Lozano - Last Filed: 08/10/17 15:35> - Vital Signs Last Vital Signs Temp Pulse Resp BP Pulse Ox 98.0 F 72 18 142/70 96 08/10/17 14:40 08/10/17 14:40 08/10/17 14:40 08/10/17 14:40 08/10/17 14:40 - Physical Exam Comments: GENERAL: Awake, alert, and fully oriented, in no acute distress HEAD: No signs of trauma EYES: PERRLA, EOMI, sclera anicteric, conjunctiva clear ENT: Auricles normal inspection, hearing grossly normal, nares patent, oropharynx clear without exudates. Moist mucosa NECK: Normal ROM, supple, no lymphadenopathy, JVD, or masses LUNGS: Breath sounds equal, clear to auscultation bilaterally. No wheezes, and no crackles HEART: Regular rate and rhythm, normal S1 and S2, no murmurs, rubs or gallops ABDOMEN: Soft, nontender, normoactive bowel sounds. No guarding, no rebound. No masses EXTREMITIES: Normal range of motion, no edema. No clubbing or cyanosis. No cords, erythema, or tenderness NEUROLOGICAL: Cranial nerves II through XII grossly intact. Normal speech, normal gait SKIN: Warm, Dry, normal turgor, no rashes or lesions noted. +Jaundice <Soraya Matute - Last Filed: 08/10/17 17:22> ED Treatment Course - LABORATORY CBC & Chemistry Diagram: 08/10/17 15:28 08/10/17 15:28 <Elyssa Lozano - Last Filed: 08/10/17 15:35> - LABORATORY CBC & Chemistry Diagram: 08/10/17 15:28 08/10/17 15:28 <Soraya Matute - Last Filed: 08/10/17 17:22> Medical Decision Making - Medical Decision Making 08/10/17 17:22 Case d/w Dr. Morales. Ammonia trending down. He received lactulose in ED. Stable for transfer back to [place]. <Soraya Matute - Last Filed: 08/10/17 17:22> *DC/Admit/Observation/Transfer - Attestations Scribe Attestion: 08/10/17 15:37 Documentation prepared by Elyssa Lozano, acting as medical apparatus model maker for Soraya Matute MD. <Elyssa Lozano - Last Filed: 08/10/17 15:35> - Discharge Dispostion Admit: No <Soraya Matute - Last Filed: 08/10/17 17:22> Diagnosis at time of Disposition: Hyperammonemia - Discharge Dispostion Disposition: CUSTODIAL FACILITY Condition at time of disposition: Improved - Referrals Referrals: Donald Lau [Primary Care Provider] - - Patient Instructions - Post Discharge Activity
[2017-08-10] MEDS ORDERED: LACTULOSE 20 GM/30 ML UDC (FOR ORAL USE ONLY) PO ONE (15:32)
[2017-08-10] MEDS ORDERED: LACTULOSE 20 GM/30 ML UDC (FOR ORAL USE ONLY) ONE (15:35)
[2017-08-10 15:38] LABS: BASOPHIL 0.7 % (0-2.0); EOSINOPHIL 11.9 % (0-4.5); MCH 32.7 pg (25.7-33.7); MCHC 34.4 g/dl (32.0-35.9); MEAN CELL VOLUME 94.9 fl (80-96); PLATELET COUNT 45 K/MM3 (134-434); RDW 15.9 % (11.9-15.9); WHITE BLOOD COUNT 3.6 K/mm3 (4.0-10.0)
[2017-08-10 15:52] LABS: INR 1.66 (0.82-1.09); PROTHROMBIN TIME (PATIENT) 18.8 SEC (9.98-11.88)
[2017-08-10 16:03] LABS: ALBUMIN 1.8 g/dl (3.4-5.0); ANION GAP 4 (8-16); CALCIUM 7.8 mg/dL (8.5-10.1); CO2 26 mmol/L (21-32); CREATININE 1.2 mg/dL (0.7-1.3); GLUCOSE,RANDOM 78 mg/dL (74-106); SGOT/AST 64 U/L (15-37); SGPT/ALT 30 U/L (12-78)
[2017-08-10 16:04] LABS: ALK PHOS 107 U/L (45-117); BILIRUBIN,TOTAL 2.8 mg/dL (0.2-1.0); TOT PROT 7.5 g/dl (6.4-8.2)
[2017-08-10 17:13] LABS: URINE APPEARANCE SLCLOUDY; URINE BILIRUBIN NEGATIVE (NEGATIVE); URINE BLOOD 1+ (NEGATIVE); URINE COLOR YELLOW; URINE GLUCOSE (UA) NEGATIVE (NEGATIVE); URINE KETONE NEGATIVE (NEGATIVE); URINE NITRITE NEGATIVE (NEGATIVE); URINE PROTEIN NEGATIVE (NEGATIVE); URINE UROBILINOGEN NEGATIVE mg/dL (0.2-1.0)
[2017-08-10 17:17] LABS: CALCIUM OXALATE CRYSTALS RARE /hpf (NONE SEEN); URINE RBC 3 /hpf (0-3); URINE WBC 85 /hpf (3-5); YEAST FEW
[2017-08-10 18:55] LABS: URINE LEUK ESTERASE 1+ (NEGATIVE)
--- NOTE | 2017-08-11 10:33 | EKG ---
Test Reason : Blood Pressure : / mmHG Vent. Rate : 060 BPM Atrial Rate : 060 BPM P-R Int : 190 ms QRS Dur : 128 ms QT Int : 474 ms P-R-T Axes : 074 -28 026 degrees QTc Int : 474 ms NORMAL SINUS RHYTHM RIGHT BUNDLE BRANCH BLOCK INFERIOR INFARCT , AGE UNDETERMINED ABNORMAL ECG WHEN COMPARED WITH ECG OF 31-JUL-2017 12:38, QRS DURATION HAS DECREASED Confirmed by ANUJ ROGERS, KIRA ([id number]) on 08/11/2017 10:32:45 AM Referred By: Confirmed By:KIRA LESLIE MD
== END 2017-08-10 19:11 ==
LOC: JER 14:35
DX: E72.20 Disorder of urea cycle metabolism, unspecified (principal); I12.9 Hypertensive chronic kidney disease with stage 1 through stage 4 chronic kidney disease, or unspecified chronic kidney disease; N18.9 Chronic kidney disease, unspecified; K76.0 Fatty (change of) liver, not elsewhere classified; E78.5 Hyperlipidemia, unspecified; I50.9 Heart failure, unspecified
CPT/HCPCS: 36415; 80053; 81003; 81015; 82140; 83690; 85025; 85610; 93005; 93010; 99283-25

== ENCOUNTER 2017-10-07 16:19 | Inpatient (IN) | payer OTHER ==
--- NOTE | 2017-10-07 16:50 | PDOC ---
History of Present Illness - General History Source: Patient Exam Limitations: No Limitations - History of Present Illness Initial Comments: 10/07/17 17:57 The patient is a 57 year old male with past medical history of morbid obesity, hypertension, hyperlipidemia, CHF, CKD, GERD, pancytopenia, fatty liver disease who presents to the ED with complaints of increased abdomen distension and bilateral lower extremity edema for the past few weeks. The patient states that recently he has experienced a change in his lactulose and furosemide prescriptions. As per [facility], the patient has been non- compliant with his medications. He denies any associated chest pain or shortness of breath. He complains of pain to the left side of his abdomen and reports some fluid leakage out of his skin for the past two days. The patient denies any fever or chills, nausea, vomiting, diarrhea, cough, or urinary symptoms. PCP: Dr. Lau <Estefania Zapien - Last Filed: 10/07/17 19:57> <Trudy Camargo - Last Filed: 10/07/17 21:25> - General Stated Complaint: EDEMA Time Seen by Provider: 10/07/17 16:38 Past History <Estefania Zapien - Last Filed: 10/07/17 19:57> - Past Medical History Anemia: Yes (pancytopenia,thrombocytopenia, chronic anemia) COPD: No Dementia: No (altered mental status.) GI Disorders: Yes (gerd) HTN: Yes Hypercholesterolemia: Yes Psychiatric Problems: Yes - Suicide/Smoking/Psychosocial Hx Smoking Status: No Smoking History: Never smoked Have you smoked in the past 12 months: No Cigars Per Day: 3 Hx Alcohol Use: No Drug/Substance Use Hx: No Substance Use Type: None <Trudy Camargo - Last Filed: 10/07/17 21:25> - Past Medical History Allergies/Adverse Reactions: Allergies Allergy/AdvReac Type Severity Reaction Status Date / Time No Known Allergies Allergy Verified 10/07/17 16:58 Home Medications: Ambulatory Orders Furosemide [Lasix] 20 mg PO BID 07/31/17 Nystatin Powder [Nystop Topical Powder -] 100,000 gm TP DAILY 08/10/17 Acetaminophen [Tylenol] 325 mg PO ASDIR 10/07/17 Cyanocobalamin (Vitamin B-12) [Vitamin B-12] 100 mcg PO DAILY 10/07/17 Guaifenesin AC Cough Syrup 15 ml PO ASDIR 10/07/17 Menthol [Icy Hot] 1 each TP DAILY 10/07/17 Neomycin Sulfate 500 mg PO DAILY 10/07/17 Zinc Oxide 0 gm TP DAILY 10/07/17 Review of Systems - Review of Systems Able to Perform ROS?: Yes Comments:: 10/07/17 17:57 GENERAL/CONSTITUTIONAL: No fever or chills. No weakness. HEAD, EYES, EARS, NOSE AND THROAT: No change in vision. No ear pain or discharge. No sore throat. CARDIOVASCULAR: Present: Bilateral lower extremity swelling No chest pain or shortness of breath. RESPIRATORY: No cough, wheezing, or hemoptysis. GASTROINTESTINAL: Present: abdominal distention No nausea, vomiting, diarrhea or constipation. GENITOURINARY: No dysuria, frequency, or change in urination. MUSCULOSKELETAL: No joint or muscle swelling or pain. No neck or back pain. SKIN: No rash NEUROLOGIC: No headache, vertigo, loss of consciousness, or change in strength/ sensation. ENDOCRINE: No increased thirst. No abnormal weight change. HEMATOLOGIC/LYMPHATIC: No anemia, easy bleeding, or history of blood clots. ALLERGIC/IMMUNOLOGIC: No hives or skin allergy. <Estefania Zapien - Last Filed: 10/07/17 19:57> *Physical Exam - Vital Signs Last Vital Signs Temp Pulse Resp BP Pulse Ox 99.1 F 68 18 94/46 100 10/07/17 16:55 10/07/17 16:55 10/07/17 16:55 10/07/17 16:55 10/07/17 16:55 - Physical Exam Comments: 10/07/17 18:03 GENERAL: Awake, alert, and fully oriented, in no acute distress HEAD: No signs of trauma EYES: PERRLA, EOMI, sclera anicteric, conjunctiva clear ENT: Auricles normal inspection, hearing grossly normal, nares patent, oropharynx clear without exudates. Moist mucosa NECK: Normal ROM, supple, no lymphadenopathy, JVD, or masses LUNGS: Breath sounds equal, clear to auscultation bilaterally. No wheezes, and no crackles HEART: Cystolic ejection murmur grade III/. Regular rate and rhythm, normal S1 and S2, no rubs or gallops ABDOMEN: Obese abdomen, with 4+ pitting edema diffusely. Soft, nontender, normoactive bowel sounds. No guarding, no rebound. No masses EXTREMITIES: 4+ pitting edema in bilateral lower extremities. Normal range of motion. No clubbing or cyanosis. No cords, erythema, or tenderness NEUROLOGICAL: Cranial nerves II through XII grossly intact. Normal speech, normal gait SKIN: Warm, Dry, normal turgor, no rashes or lesions noted. <anjanaEstefania londono - Last Filed: 10/07/17 19:57> ED Treatment Course - LABORATORY CBC & Chemistry Diagram: 10/07/17 17:25 10/07/17 17:25 - RADIOLOGY Radiograph Interpretation: 10/07/17 19:56 Chest x-ray as reviewed by Dr. Woods reports limited chest x-ray due to rotation. Enlargement of the cardiomediastinal silhoutte with likely sizable right pleural effusion. Cannot assess the majority of the left lung. <anjanabryEstefania - Last Filed: 10/07/17 19:57> - LABORATORY CBC & Chemistry Diagram: 10/07/17 17:25 10/07/17 17:25 <Trudy Camargo - Last Filed: 10/07/17 21:25> Medical Decision Making - Medical Decision Making 10/07/17 19:30 Phone call placed to Dr. Morales. Call returned at 19:55 and case discussed. Microblog sent to [facility]. <anjanaEstefania londono - Last Filed: 10/07/17 19:57> - Medical Decision Making 10/07/17 19:37 a/p: 57yo male with LE edema, abd swelling dyspnea coming from [facility] changing lactulose and lasix dosing recently pitting edema to abd and legs beside ultrasound + abd ff-ascites will check labs, ekg, cxr, ammonia, ua 10/07/17 19:38 hgb 7 - discussed with the patient need for transfusion he agrees to transfusion consent obtain and on the chart 10/07/17 19:45 stool for heme sent type and screen sent call placed to Dr. Morales 10/07/17 20:[address] Morales who recommends admission to [facility] microblog sent to [facility] 10/07/17 21:23 case discussed with Soraya from [facility] accepts pt to service <Trudy Camargo - Last Filed: 10/07/17 21:25> *DC/Admit/Observation/Transfer - Attestations Scribe Attestion: 10/07/17 18:08 Documentation prepared by Estefania Zapien, acting as medical center representative for Trudy Camargo DO. <Estefania Zapien - Last Filed: 10/07/17 19:57> - Discharge Dispostion Admit: Yes - Attestations Physician Attestion: 10/07/17 19:45 I, Dr. Trudy Camargo DO, attest that this document has been prepared under my direction and personally reviewed by me in its entirety. I further attest, that it accurately reflects all work, treatment, procedures and medical decision -making performed by me. <Trudy Camargo - Last Filed: 10/07/17 21:25> Diagnosis at time of Disposition: Fatty liver, CKD (chronic kidney disease), Anasarca, Symptomatic anemia, Ascites - Discharge Dispostion Condition at time of disposition: Fair - Referrals Referrals: Marco A Ragland [Primary Care Provider] -
[2017-10-07 16:58] VITALS: BMI 55.7
[2017-10-07 17:37] LABS: BASO % 0.4 % (0-2.0); EOS % 5.6 % (0-4.5); HEMATOCRIT 22.3 % (35.4-49); HEMOGLOBIN 7.3 GM/dL (11.7-16.9); LYMPH % 16.6 % (8-40); MCHC 32.7 g/dl (32.0-35.9); MEAN PLT VOLUME 7.8 fl (7.5-11.1); MONO % 12.4 % (3.8-10.2); PLATELET COUNT 51 K/MM3 (134-434); WHITE BLOOD COUNT 2.6 K/mm3 (4.0-10.0)
[2017-10-07 18:07] LABS: URINE APPEARANCE CLEAR; URINE BILIRUBIN NEGATIVE (NEGATIVE); URINE BLOOD 2+ (NEGATIVE); URINE COLOR YELLOW; URINE GLUCOSE (UA) NEGATIVE (NEGATIVE); URINE KETONE NEGATIVE (NEGATIVE); URINE LEUK ESTERASE NEGATIVE (NEGATIVE); URINE NITRITE NEGATIVE (NEGATIVE); URINE PROTEIN NEGATIVE (NEGATIVE); URINE UROBILINOGEN NEGATIVE mg/dL (0.2-1.0)
[2017-10-07 18:09] LABS: INR 2.09 (0.82-1.09); PROTHROMBIN TIME (PATIENT) 23.6 SEC (9.98-11.88)
[2017-10-07 18:12] LABS: ACTIVATED PTT 39.4 SECONDS (26.9-34.4)
[2017-10-07 18:17] LABS: ALBUMIN 1.4 g/dl (3.4-5.0); ANION GAP 1 (8-16); BLOOD UREA NITROGEN 36 mg/dL (7-18); CALCIUM 7.5 mg/dL (8.5-10.1); CHLORIDE 105 mmol/L (98-107); CO2 34 mmol/L (21-32); CREATININE 1.6 mg/dL (0.7-1.3); GLUCOSE,RANDOM 83 mg/dL (74-106); MAGNESIUM 1.5 mg/dL (1.8-2.4); POTASSIUM 4.3 mmol/L (3.5-5.1); SGOT/AST 54 U/L (15-37); SGPT/ALT 21 U/L (12-78); SODIUM 140 mmol/L (136-145); TOT PROT 7.2 g/dl (6.4-8.2)
[2017-10-07 18:20] LABS: ALK PHOS 106 U/L (45-117)
[2017-10-07 18:27] LABS: EPI CELLS RARE /HPF (FEW); URINE MUCUS RARE
[2017-10-07] MEDS ORDERED: MAGNESIUM SULF 50% (8.12 MEQ/2 ML-1 GM VIAL) IVPB ONE (18:44)
[2017-10-07] MEDS ORDERED: MAGNESIUM SULF 50% (8.12 MEQ/2 ML-1 GM VIAL) ONE (18:45)
[2017-10-07] MEDS ORDERED: FUROSEMIDE 40 MG/4 ML INJECTABLE VIAL IVPUSH ONE (22:06)
[2017-10-07] MEDS ORDERED: ALBUTEROL SO4 0.083% IH SOL 2.5 MG/3 ML VIAL.NEB. NEB PRN (22:08)
--- NOTE | 2017-10-07 22:12 | HP ---
CHIEF COMPLAINT: edema PCP: [facility] HISTORY OF PRESENT ILLNESS: This is a 57 year old male with a past medical history significant for CHF and liver disease who presented to the ED from [facility] for increasing edema. He reports that despite medication adjustments at [facility], his edema has gotten worse. He also report some mild "surface" pain to his left abdomen. He is c/o "fluid leaking" from left side of abdomen ER course was notable for: (1) bedside U/s with ascites (2) CXR with ? pleural effusion, poor study (3) WBC 2.6, Hgb 7.3, Plt 51 Recent Travel: pt denies PAST MEDICAL HISTORY: pancytopenia, Fatty liver disease, CHF, HTN (although pt denies), CKD, morbid obesity, polyclonal hypergammaglobulinemia PAST SURGICAL HISTORY: L THR 12/2005 panniculectomy 06/2005 Social History: Smoking: previous cigar smoker Alcohol: pt denies Drugs: pt denies Family History: mother age 63, lung CA, smoker father age 43, colon CA sister with OA Allergies No Known Allergies Allergy (Verified 10/07/17 16:58) HOME MEDICATIONS: 3 Medication Instructions Recorded Furosemide [Lasix] 20 mg PO BID 07/31/17 Nystatin Powder [Nystop Topical 100,000 gm TP DAILY 08/10/17 Powder -] Acetaminophen [Tylenol] 325 mg PO ASDIR 10/07/17 Cyanocobalamin (Vitamin B-12) 100 mcg PO DAILY 10/07/17 [Vitamin B-12] Guaifenesin AC Cough Syrup 15 ml PO ASDIR 10/07/17 Menthol [Icy Hot] 1 each TP DAILY 10/07/17 Neomycin Sulfate 500 mg PO DAILY 10/07/17 Zinc Oxide 0 gm TP DAILY 10/07/17 albuterol 0.083% neb q6h PRN Calcium + D 500mg/200u BID claritin 10mg daily coreg 3.125mg bid lactulose 30mL BID ferrous sulfate 325mg daily folic acid 1mg daily REVIEW OF SYSTEMS CONSTITUTIONAL: Absent: fever, chills, diaphoresis, generalized weakness, malaise, loss of appetite, weight change HEENT: Absent: rhinorrhea, nasal congestion, throat pain, throat swelling, difficulty swallowing, mouth swelling, ear pain, eye pain, visual changes CARDIOVASCULAR: Present: peripheral edema Absent: chest pain, syncope, palpitations, irregular heart rate, lightheadedness RESPIRATORY: Absent: cough, shortness of breath, dyspnea with exertion, orthopnea, wheezing, stridor, hemoptysis GASTROINTESTINAL: Present: abdominal distension Absent: abdominal pain, nausea, vomiting, diarrhea, constipation, melena, hematochezia GENITOURINARY: Absent: dysuria, frequency, urgency, hesitancy, hematuria, flank pain, genital pain MUSCULOSKELETAL: Absent: myalgia, arthralgia, joint swelling, back pain, neck pain SKIN: Absent: rash, itching, pallor HEMATOLOGIC/IMMUNOLOGIC: Absent: easy bleeding, easy bruising, lymphadenopathy, frequent infections ENDOCRINE: Absent: unexplained weight gain, unexplained weight loss, heat intolerance, cold intolerance NEUROLOGIC: Absent: headache, focal weakness or paresthesias, dizziness, unsteady gait, seizure, mental status changes, bladder or bowel incontinence PSYCHIATRIC: Absent: anxiety, depression, suicidal or homicidal ideation, hallucinations. PHYSICAL EXAMINATION Vital Signs - 24 hr 3 10/07/17 10/07/17 10/07/17 16:55 17:40 19:17 Temperature 99.1 F Pulse Rate 68 Pulse Rate [ 71 Radial] Respiratory 18 17 Rate Blood Pressure 94/46 Blood Pressure 110/46 [Right Arm] O2 Sat by Pulse 100 100 96 Oximetry (%) GENERAL: Awake, alert, and fully oriented, in no acute distress. HEAD: Normal with no signs of trauma. EYES: Pupils equal, round and reactive to light, extraocular movements intact, sclera anicteric, conjunctiva clear. No lid lag. EARS, NOSE, THROAT: Ears normal, nares patent, oropharynx clear without exudates. Moist mucous membranes. NECK: Normal range of motion, supple without lymphadenopathy, JVD, or masses. LUNGS: Breath sounds equal, clear to auscultation bilaterally diminished bilat bases. No wheezes, and no crackles. No accessory muscle use. HEART: Regular rate and rhythm, normal S1 and S2 without murmur, rub or gallop. ABDOMEN: morbidly obese, firm to left side of abd, dull to palpation, (pt is positioned semi left side lying), 4+ edema, nontender, + distended, normoactive bowel sounds, no guarding, no rebound, no masses. unable to assess hepatomegaly due to body habitus , small excoriation left upper abd, [id number], wound bed pink, draining serous fluid MUSCULOSKELETAL: Normal range of motion at all joints. No bony deformities or tenderness. No CVA tenderness. UPPER EXTREMITIES: 2+ pulses, warm, well-perfused. No cyanosis. No clubbing. No peripheral edema. LOWER EXTREMITIES: 2+ pulses, warm, well-perfused. No calf tenderness. 4+ pitting peripheral edema bilat extending into buttocks. NEUROLOGICAL: Cranial nerves II-XII intact. Normal speech. Normal gait. PSYCHIATRIC: Cooperative. Good eye contact. Appropriate mood and affect. SKIN: Warm, dry, normal turgor, no rashes or lesions noted, normal capillary refill. Laboratory Results - last 24 hr 3 10/07/17 10/07/17 10/07/17 10/07/17 10/07/17 17:25 17:25 17:25 18:51 19:38 WBC 2.6 L RBC 2.20 L D Hgb 7.3 L D Hct 22.3 L D MCV 101.0 H D MCH 33.0 MCHC 32.7 RDW 19.0 H D Plt Count 51 L MPV 7.8 Neutrophils % 65.0 Lymphocytes % 16.6 Monocytes % 12.4 H Eosinophils % 5.6 H Basophils % 0.4 PT with INR 23.60 H INR 2.09 H PTT (Actin FS) 39.4 H Sodium 140 Potassium 4.3 Chloride 105 Carbon Dioxide 34 H D Anion Gap 1 L BUN 36 H D Creatinine 1.6 H D Creat Clearance w eGFR 44.46 Random Glucose 83 Lactic Acid 1.1 Calcium 7.5 L Magnesium 1.5 L D Total Bilirubin 2.0 H D AST 54 H ALT 21 D Alkaline Phosphatase 106 Ammonia 20.26 Creatine Kinase 42 Troponin I < 0.02 B-Natriuretic Peptide 409.21 H Total Protein 7.2 Albumin 1.4 L D Urine Color Urine Appearance Urine pH Ur Specific [place] Urine Protein Urine Glucose (UA) Urine Ketones Urine Blood Urine Nitrite Urine Bilirubin Urine Urobilinogen Ur Leukocyte Esterase Urine WBC (Auto) Urine RBC (Auto) Ur Epithelial Cells Urine Mucus Stool Occult Blood Negative 3 Urine Color Yellow 10/07/17 17:50 Urine Appearance Clear 10/07/17 17:50 Urine pH 5.0 (5.0-8.0) D 10/07/17 17:50 Ur Specific [place] 1.012 (1.001-1.035) 10/07/17 17:50 Urine Protein Negative (NEGATIVE) 10/07/17 17:50 Urine Glucose (UA) Negative (NEGATIVE) 10/07/17 17:50 Urine Ketones Negative (NEGATIVE) 10/07/17 17:50 Urine Blood 2+ (NEGATIVE) H 10/07/17 17:50 Urine Nitrite Negative (NEGATIVE) 10/07/17 17:50 Urine Bilirubin Negative (NEGATIVE) 10/07/17 17:50 Ur Leukocyte Esterase Negative (NEGATIVE) 10/07/17 17:50 Urine WBC (Auto) 2 10/07/17 17:50 Urine RBC (Auto) 2 10/07/17 17:50 Ur Epithelial Cells Rare /HPF (FEW) 10/07/17 17:50 Urine Mucus Rare 10/07/17 17:50 ECG NSR, RBBB Vent rate 69, QTC 432 Inferior infarct, age undetermined Anterior infarct, age undetermined TWI lead v2, flattened, lead 1, aVL, V3-V4 Radiology Reports CXR portable Impression: Extremely limited chest x-ray due to patient rotation. Enlargement of the cardiomediastinal silhouette with likely sizable right pleural effusion. Cannot assess the majority of the left lung. Clinical correlation and a repeat chest x-ray are recommended. Reported By: Anahy Woods DO 10/07/17 2914 ASSESSMENT/PLAN: 57yM with PMH pancytopenia, Fatty liver disease, CHF, HTN (although pt denies), CKD, morbid obesity, polyclonal hypergammaglobulinemia presented to the ED from [place] with edema and increasing abdominal distention. Anemia - will transfuse 2uPRBC - likely due to chronic disease but will check iron, tibc, ferritin - repeat CBC in am Anasarca - due to liver disease - change po lasix to IV - likely will need albumin - GI consult-his pay agent is at [facility] - cont neomycin - cont lactulose, ammonia level good - platelet count low, cont to monitor, transfuse if bleeding CHF - cont coreg, lasix changed to IV CKD - cr up from previous visit in July 07.2-->1.6 - avoid nephrotoxic agents pancytopenia/polyclonal hypergammaglobulinemia - follows with Dr. Donnelly as outpt DVT PPX - heparin deferred due to low Plt FEN - defer IVF, cont home 1000mL fluid restriction - BMP in am - low sodium diet Dispo: Pt currently requires inpatient management of his emergent condition Visit type - Emergency Visit Emergency Visit: Yes ED Registration Date: 10/07/17 Care time: The patient presented to the Emergency Department on the above date and was hospitalized for further evaluation of their emergent condition. - New Patient This patient is new to me today: Yes Date on this admission: 10/07/17 - Critical Care Critical Care patient: No
[2017-10-08] MEDS: LACTULOSE 20 GM/30 ML UDC (FOR ORAL USE ONLY) PO SCH ×3 (00:15→22:08)
[2017-10-08 07:14] LABS: ANION GAP 6 (8-16); BASO % 0.5 % (0-2.0); BLOOD UREA NITROGEN 36 mg/dL (7-18); CALCIUM 7.5 mg/dL (8.5-10.1); CHLORIDE 103 mmol/L (98-107); CO2 32 mmol/L (21-32); CREATININE 1.6 mg/dL (0.7-1.3); EOS % 5.4 % (0-4.5); GLUCOSE,RANDOM 79 mg/dL (74-106); HEMATOCRIT 24.9 % (35.4-49); HEMOGLOBIN 8.2 GM/dL (11.7-16.9); LYMPH % 14.2 % (8-40); MAGNESIUM 1.8 mg/dL (1.8-2.4); MCH 32.7 pg (25.7-33.7); MEAN CELL VOLUME 99.3 fl (80-96); MEAN PLT VOLUME 7.6 fl (7.5-11.1); MONO % 12.1 % (3.8-10.2); NEUT % 67.8 % (42.8-82.8); PHOSPHOROUS 4.2 mg/dL (2.5-4.9); PLATELET COUNT 51 K/MM3 (134-434); POTASSIUM 4.5 mmol/L (3.5-5.1); RBC 2.51 M/mm3 (4.00-5.60); RDW 20.1 % (11.9-15.9); SODIUM 141 mmol/L (136-145); WHITE BLOOD COUNT 2.9 K/mm3 (4.0-10.0)
[2017-10-08] MEDS: FERROUS SO4 325 MG TABLET (FP) PO SCH ×2 (08:43→17:53)
[2017-10-08] MEDS ORDERED: PT OWN MED DRAWER 7, Y5N ONE (09:14)
[2017-10-08] MEDS ORDERED: FUROSEMIDE 40 MG/4 ML INJECTABLE VIAL IVPUSH SCH (10:00)
--- NOTE | 2017-10-08 10:08 | EKG ---
Test Reason : Blood Pressure : / mmHG Vent. Rate : 069 BPM Atrial Rate : 069 BPM P-R Int : 170 ms QRS Dur : 134 ms QT Int : 404 ms P-R-T Axes : 049 -20 044 degrees QTc Int : 432 ms NORMAL SINUS RHYTHM RIGHT BUNDLE BRANCH BLOCK INFERIOR INFARCT (CITED ON OR BEFORE 10-AUG-2017) ANTERIOR INFARCT , AGE UNDETERMINED ABNORMAL ECG Confirmed by JARRET GARAY MD ([id number]) on 10/08/2017 10:08:27 AM Referred By: Confirmed By:JARRET GARAY MD
[2017-10-08] MEDS: LORATADINE 10 MG TABLET PO SCH (10:10)
[2017-10-08] MEDS: FOLIC ACID 1 MG TABLET (FP) PO SCH (10:11)
[2017-10-08] MEDS: CARVEDILOL 3.125 MG TABLET (FP) PO SCH ×2 (10:11→22:09)
[2017-10-08] MEDS: NYSTATIN POWDER 100,000 UNITS/GM - 15 GM TOPICAL POWDER TP SCH (10:12)
[2017-10-08] MEDS: NEOMYCIN SO4 500 MG TABLET PO SCH ×2 (10:12→22:09)
[2017-10-08] MEDS: CALCIUM 500MG/VIT-D 200 UNITS COMBO TABLET (FP) PO SCH ×2 (10:13→22:08)
[2017-10-08] MEDS: CYANOCOBALAMIN (VITAMIN B-12) 100 MCG TABLET PO SCH (10:13)
[2017-10-08] MEDS ORDERED: ALBUTEROL SO4 2.5/IPRATROPIUM 0.5 INH SOL 3 ML VIAL.NEB. NEB PRN (10:54)
--- NOTE | 2017-10-08 10:56 | PN ---
Progress Note, Physician Chief Complaint: AWAKE DRY COUGH NO SOB - Current Medication List Current Medications: Active Medications Albuterol Sulfate (Ventolin 0.083% Nebulizer Soln -) 1 amp NEB Q6H PRN PRN Reason: SHORT OF BREATH/WHEEZING Albuterol/Ipratropium (Duoneb -) 1 amp NEB Q6H PRN PRN Reason: SHORTNESS OF BREATH Calcium Carbonate/Cholecalciferol (Os-Gera 500+D -) 1 tab PO BID [facility] Last Admin: 10/08/17 10:13 Dose: 1 tab Carvedilol (Coreg -) 3.125 mg PO BID [facility] Last Admin: 10/08/17 10:11 Dose: 3.125 mg Cyanocobalamin (Vitamin B12 -) 100 mcg PO DAILY [facility] Last Admin: 10/08/17 10:13 Dose: 100 mcg Ferrous Sulfate (Feosol -) 325 mg PO BIDWM [facility] Last Admin: 10/08/17 08:43 Dose: 325 mg Folic Acid (Folic Acid -) 1 mg PO DAILY [facility] Last Admin: 10/08/17 10:11 Dose: 1 mg Furosemide (Lasix Injection -) 40 mg IVPUSH DAILY [facility] Guaifenesin (Diabetic Tussin Dm -) 10 ml PO Q6H PRN PRN Reason: COUGH Lactulose (Cephulac (Oral Use)) 20 gm PO BID [facility] Last Admin: 10/08/17 10:10 Dose: 20 gm Loratadine (Claritin -) 10 mg PO DAILY [facility] Last Admin: 10/08/17 10:10 Dose: 10 mg Neomycin Sulfate (Mycifradin -) 500 mg PO BID [facility] Last Admin: 10/08/17 10:12 Dose: 500 mg Nystatin (Nystop Powder -) 1 applic TP DAILY [facility] Last Admin: 10/08/17 10:12 Dose: 1 applic - Objective Vital Signs: Vital Signs Temperature 98.3 F 10/08/17 10:00 Pulse Rate 72 10/08/17 10:00 Respiratory Rate 20 10/08/17 10:00 Blood Pressure 105/53 10/08/17 10:00 O2 Sat by Pulse Oximetry (%) 97 10/07/17 23:00 Constitutional: Yes: Mild Distress Eyes: Yes: WNL HENT: Yes: WNL Neck: Yes: WNL Cardiovascular: Yes: WNL Respiratory: Yes: Cough, SOB Gastrointestinal: Yes: Ascites, Distention Genitourinary: Yes: WNL Musculoskeletal: Yes: Muscle Weakness Extremities: Yes: WNL Edema: Yes Edema: LLE: 2+, RLE: 2+ Peripheral Pulses WNL: Yes Integumentary: Yes: WNL, Venous Stasis Changes Wound/Incision: Yes: Clean/Dry Neurological: Yes: Pre-Existing Deficit ...Motor Strength: LLE, RLE Psychiatric: Yes: Other Labs: CBC, BMP 10/08/17 05:35 10/08/17 05:35 INR, PTT INR 2.09 (0.82-1.09) H 10/07/17 17:25 Problem List - Problems (1) Anasarca Code(s): R60.1 - GENERALIZED EDEMA (2) Ascites Code(s): R18.8 - OTHER ASCITES (3) CKD (chronic kidney disease) Code(s): N18.9 - CHRONIC KIDNEY DISEASE, UNSPECIFIED Qualifiers: Chronic kidney disease stage: stage 3 (moderate) Qualified Code(s): N18.3 - Chronic kidney disease, stage 3 (moderate) (4) Fatty liver Code(s): K76.0 - FATTY (CHANGE OF) LIVER, NOT ELSEWHERE CLASSIFIED (5) Symptomatic anemia Code(s): D64.9 - ANEMIA, UNSPECIFIED (6) CHF (congestive heart failure) Code(s): I50.9 - HEART FAILURE, UNSPECIFIED Qualifiers: Congestive heart failure type: unspecified Congestive heart failure chronicity: acute on chronic Qualified Code(s): I50.9 - Heart failure, unspecified (7) DVT prophylaxis Code(s): [id number] - (8) HLD (hyperlipidemia) Code(s): E78.5 - HYPERLIPIDEMIA, UNSPECIFIED Qualifiers: Hyperlipidemia type: mixed hyperlipidemia Qualified Code(s): E78.2 - Mixed hyperlipidemia (9) HTN (hypertension) Code(s): I10 - ESSENTIAL (PRIMARY) HYPERTENSION Qualifiers: Hypertension type: essential hypertension Qualified Code(s): I10 - Essential (primary) hypertension (10) Thrombocytopenia Code(s): D69.6 - THROMBOCYTOPENIA, UNSPECIFIED Assessment/Plan MONITOR ON TELE TRANSFUSE PRBC PULM/RENAL EVAL DUAGUILARB LASELY IV OOB TO CHAIR PT EVAL GI FOLLOW UP
--- NOTE | 2017-10-08 12:31 | PN ---
Progress Note (short form) - Note Progress Note: PULMONARY CONSULTATION DICTATED 10/08/17 IMP DYSPNEA CHF ASCITES CHRONIC LIVER DISEASE CKD PANCYTOPENIA LIKELY OSAS PLAN LASIX INHALED BRONCHODILATORS TRANSFUSE O2 DAILY WTS LACTULOSE MONITOR LYTES ECHO F/U CHEST X-RAY SLEEP SCREEN DR ELISE Problem List - Problems (1) Pancytopenia Code(s): D61.818 - OTHER PANCYTOPENIA (2) Anasarca Code(s): R60.1 - GENERALIZED EDEMA (3) Ascites Code(s): R18.8 - OTHER ASCITES (4) CKD (chronic kidney disease) Code(s): N18.9 - CHRONIC KIDNEY DISEASE, UNSPECIFIED Qualifiers: Chronic kidney disease stage: stage 3 (moderate) Qualified Code(s): N18.3 - Chronic kidney disease, stage 3 (moderate) (5) Fatty liver Code(s): K76.0 - FATTY (CHANGE OF) LIVER, NOT ELSEWHERE CLASSIFIED (6) Symptomatic anemia Code(s): D64.9 - ANEMIA, UNSPECIFIED (7) CHF (congestive heart failure) Code(s): I50.9 - HEART FAILURE, UNSPECIFIED Qualifiers: Congestive heart failure type: unspecified Congestive heart failure chronicity: acute on chronic Qualified Code(s): I50.9 - Heart failure, unspecified (8) HLD (hyperlipidemia) Code(s): E78.5 - HYPERLIPIDEMIA, UNSPECIFIED Qualifiers: Hyperlipidemia type: mixed hyperlipidemia Qualified Code(s): E78.2 - Mixed hyperlipidemia (9) HTN (hypertension) Code(s): I10 - ESSENTIAL (PRIMARY) HYPERTENSION Qualifiers: Hypertension type: essential hypertension Qualified Code(s): I10 - Essential (primary) hypertension (10) Thrombocytopenia Code(s): D69.6 - THROMBOCYTOPENIA, UNSPECIFIED (11) Dyspnea Code(s): R06.00 - DYSPNEA, UNSPECIFIED
--- NOTE | 2017-10-08 12:43 | CON.GI ---
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 Managed with Lasix and lactulose, per patient. The patient reports worsening abdominal distension and disorientation. Denies fever , chills, nausea, vomiting, hematemesis, dysphagia, odynophagia, jaundice, abdominal pain, altered bowels, pencil-thin, or ribbon-like stools. Denies melena, hematochezia, weight loss. Has underlying macrocytic, normochromic anemia. - History Source History Provided By: Patient, Medical Record - Alcohol/Substance Use Hx Alcohol Use: No - Smoking History Smoking history: Never smoked Have you smoked in the past 12 months: No Home Medications - Allergies Allergies/Adverse Reactions: Allergies Allergy/AdvReac Type Severity Reaction Status Date / Time No Known Allergies Allergy Verified 10/07/17 16:58 - Home Medications Home Medications: Ambulatory Orders Furosemide [Lasix] 20 mg PO BID 07/31/17 Nystatin Powder [Nystop Topical Powder -] 100,000 gm TP DAILY 08/10/17 Acetaminophen [Tylenol] 650 mg PO ASDIR 10/07/17 Cyanocobalamin (Vitamin B-12) [Vitamin B-12] 100 mcg PO DAILY 10/07/17 Guaifenesin [Robitussin] 15 ml PO 10/07/17 Menthol [Icy Hot] 1 each TP DAILY 10/07/17 Neomycin Sulfate 500 mg PO BID 10/07/17 Zinc Oxide TP DAILY 10/07/17 Albuterol 0.083% Nebulizer Kori [Ventolin 0.083% Nebulizer Soln -] 1 neb NEB Q6H PRN 10/08/17 Calcium 500-Vit D3 200 [place] PO BID 10/08/17 Carvedilol [Coreg] 3.125 mg PO BID 10/08/17 Ferrous Sulfate [Iron] 325 mg PO BID 10/08/17 Folic Acid 1 mg PO 10/08/17 Lactulose PO BID 10/08/17 Loratadine [Claritin] 10 mg PO DAILY 10/08/17 Family Disease History - Family Disease History Family History: Unremarkable (unremarcable) Review of Systems Findings/Remarks: As per HPI, H&P Physical Exam-GI Vital Signs: Vital Signs Temperature 98.3 F 10/08/17 10:00 Pulse Rate 72 10/08/17 10:00 Respiratory Rate 20 10/08/17 10:00 Blood Pressure 105/53 10/08/17 10:00 O2 Sat by Pulse Oximetry (%) 97 10/07/17 23:00 Constitutional: Yes: No Distress, Calm, Other (obese) Eyes: Yes: Conjunctiva Clear HENT: Yes: Atraumatic Neck: Yes: Supple Cardiovascular: Yes: Regular Rate and Rhythm Respiratory: Yes: Regular Gastrointestinal Inspection: Yes: Other (morbidly obse, unable to asses for ascites, or masses). No: Distention ...Palpate: Yes: Soft. No: Firm/Rigid, Guarding, Tenderness, Tenderness, Epigastium, Tenderness, Rebound Neurological: Yes: Alert, Oriented. No: Asterixis, Confusion, Lethargy, Tremors Labs: CBC, BMP 10/08/17 05:35 10/08/17 05:35 INR, PTT INR 2.09 (0.82-1.09) H 10/07/17 17:25 Laboratory Tests 10/07/17 10/07/17 10/07/17 17:25 17:25 17:25 WBC 2.6 L RBC 2.20 L D Hgb 7.3 L D Hct 22.3 L D MCV 101.0 H D MCH 33.0 MCHC 32.7 RDW 19.0 H D Plt Count 51 L MPV 7.8 Neutrophils % 65.0 Lymphocytes % 16.6 Monocytes % 12.4 H Eosinophils % 5.6 H Basophils % 0.4 PT with INR 23.60 H INR 2.09 H PTT (Actin FS) 39.4 H Sodium 140 Potassium 4.3 Chloride 105 Carbon Dioxide 34 H D Anion Gap 1 L BUN 36 H D Creatinine 1.6 H D Creat Clearance w eGFR 44.46 Random Glucose 83 Lactic Acid Calcium 7.5 L Phosphorus Magnesium 1.5 L D Ferritin Total Bilirubin 2.0 H D AST 54 H ALT 21 D Alkaline Phosphatase 106 Ammonia Creatine Kinase 42 Troponin I < 0.02 B-Natriuretic Peptide Total Protein 7.2 Albumin 1.4 L D Urine Color Urine Appearance Urine pH Ur Specific [place] Urine Protein Urine Glucose (UA) Urine Ketones Urine Blood Urine Nitrite Urine Bilirubin Urine Urobilinogen Ur Leukocyte Esterase Urine WBC (Auto) Urine RBC (Auto) Ur Epithelial Cells Urine Mucus Stool Occult Blood Blood Type Antibody Screen Crossmatch 10/07/17 10/07/17 10/07/17 17:25 17:50 18:51 WBC RBC Hgb Hct MCV MCH MCHC RDW Plt Count MPV Neutrophils % Lymphocytes % Monocytes % Eosinophils % Basophils % PT with INR INR PTT (Actin FS) Sodium Potassium Chloride Carbon Dioxide Anion Gap BUN Creatinine Creat Clearance w eGFR Random Glucose Lactic Acid Calcium Phosphorus Magnesium Ferritin Total Bilirubin AST ALT Alkaline Phosphatase Ammonia 20.26 Creatine Kinase Troponin I B-Natriuretic Peptide 409.21 H Total Protein Albumin Urine Color Yellow Urine Appearance Clear Urine pH 5.0 D Ur Specific [place] 1.012 Urine Protein Negative Urine Glucose (UA) Negative Urine Ketones Negative Urine Blood 2+ H Urine Nitrite Negative Urine Bilirubin Negative Urine Urobilinogen Negative Ur Leukocyte Esterase Negative Urine WBC (Auto) 2 Urine RBC (Auto) 2 Ur Epithelial Cells Rare Urine Mucus Rare Stool Occult Blood Blood Type Antibody Screen Crossmatch 10/07/17 10/07/17 10/07/17 18:51 19:38 21:53 WBC RBC Hgb Hct MCV MCH MCHC RDW Plt Count MPV Neutrophils % Lymphocytes % Monocytes % Eosinophils % Basophils % PT with INR INR PTT (Actin FS) Sodium Potassium Chloride Carbon Dioxide Anion Gap BUN Creatinine Creat Clearance w eGFR Random Glucose Lactic Acid 1.1 Calcium Phosphorus Magnesium Ferritin Total Bilirubin AST ALT Alkaline Phosphatase Ammonia Creatine Kinase Troponin I B-Natriuretic Peptide Total Protein Albumin Urine Color Urine Appearance Urine pH Ur Specific [place] Urine Protein Urine Glucose (UA) Urine Ketones Urine Blood Urine Nitrite Urine Bilirubin Urine Urobilinogen Ur Leukocyte Esterase Urine WBC (Auto) Urine RBC (Auto) Ur Epithelial Cells Urine Mucus Stool Occult Blood Negative Blood Type O POSITIVE Antibody Screen Negative Crossmatch See Detail 10/08/17 10/08/17 10/08/17 05:35 05:35 05:35 WBC 2.9 L RBC 2.51 L Hgb 8.2 L D Hct 24.9 L MCV 99.3 H MCH 32.7 MCHC 33.0 RDW 20.1 H Plt Count 51 L MPV 7.6 Neutrophils % 67.8 Lymphocytes % 14.2 Monocytes % 12.1 H Eosinophils % 5.4 H Basophils % 0.5 PT with INR INR PTT (Actin FS) Sodium 141 Potassium 4.5 Chloride 103 Carbon Dioxide 32 Anion Gap 6 L BUN 36 H Creatinine 1.6 H Creat Clearance w eGFR Random Glucose 79 Lactic Acid Calcium 7.5 L Phosphorus 4.2 Magnesium 1.8 Ferritin 398.574 H Cancelled Total Bilirubin AST ALT Alkaline Phosphatase Ammonia Creatine Kinase Troponin I B-Natriuretic Peptide Total Protein Albumin Urine Color Urine Appearance Urine pH Ur Specific [place] Urine Protein Urine Glucose (UA) Urine Ketones Urine Blood Urine Nitrite Urine Bilirubin Urine Urobilinogen Ur Leukocyte Esterase Urine WBC (Auto) Urine RBC (Auto) Ur Epithelial Cells Urine Mucus Stool Occult Blood Blood Type Antibody Screen Crossmatch Imaging - Results Ultrasound: Report Reviewed (bed-side in ED) Problem List - Problems (1) 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 Code(s): K75.81 - NONALCOHOLIC STEATOHEPATITIS (NIETO); K74.60 - UNSPECIFIED CIRRHOSIS OF LIVER Assessment/Plan Non-alcoholic liver cirrhosis. No signs of encephalopahy No signs of GI bleeding SBP not suspected HRS possible given the elevated Cr Ascites as reported by bed-side US in ED Agree with lasix, lactulose, neomycin Add Aldactone 50 mg po BID Daily CMP, CBC, PT/INR Daily weight, I&O 2 gm salt diet AFP US, or MRI of the liver if possible
--- NOTE | 2017-10-08 13:13 | CONSULT ---
Consult - text type - Consultation Consultation Note: A 57 yom NHR, morbidly obese, followed at 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 Managed with Lasix and lactulose, per patient. The patient reports worsening abdominal distension and disorientation. Denies fever , chills, nausea, vomiting, hematemesis, dysphagia, odynophagia, jaundice, abdominal pain, altered bowels, pencil-thin, or ribbon-like stools. Denies melena, hematochezia, weight loss. Has underlying macrocytic, normochromic anemia. - Past Medical History Anemia: Yes (pancytopenia,thrombocytopenia, chronic anemia) COPD: No Dementia: No (altered mental status.) GI Disorders: Yes (gerd) HTN: Yes Hypercholesterolemia: Yes Psychiatric Problems: Yes - Suicide/Smoking/Psychosocial Hx Smoking History: Never smoked - Past Medical History Allergies/Adverse Reactions: Allergies Allergy/AdvReac Type Severity Reaction Status Date / Time No Known Allergies Allergy Verified 10/07/17 16:58 Home Medications: Ambulatory Orders Furosemide [Lasix] 20 mg PO BID 07/31/17 Nystatin Powder [Nystop Topical Powder -] 100,000 gm TP DAILY 08/10/17 Acetaminophen [Tylenol] 325 mg PO ASDIR 10/07/17 Cyanocobalamin (Vitamin B-12) [Vitamin B-12] 100 mcg PO DAILY 10/07/17 Guaifenesin AC Cough Syrup 15 ml PO ASDIR 10/07/17 Menthol [Icy Hot] 1 each TP DAILY 10/07/17 Neomycin Sulfate 500 mg PO DAILY 10/07/17 Zinc Oxide 0 gm TP DAILY 10/07/17 Active Medications Generic Name Dose Route Start Last Admin Trade Name Freq PRN Reason Stop Dose Admin Albuterol/Ipratropium 1 amp 10/08/17 10:54 10/08/17 14:10 Duoneb - NEB 1 amp Q6H PRN Administration SHORTNESS OF BREATH Calcium Carbonate/Cholecalciferol 1 tab 10/08/17 10:00 10/08/17 10:13 Os-Gera 500+D - PO 1 tab BID SAYRA Administration Carvedilol 3.125 mg 10/08/17 10:00 10/08/17 10:11 Coreg - PO 3.125 mg BID SAYRA Administration Cyanocobalamin 100 mcg 10/08/17 10:00 10/08/17 10:13 Vitamin B12 - PO 100 mcg DAILY SAYRA Administration Ferrous Sulfate 325 mg 10/08/17 08:00 10/08/17 17:53 Feosol - PO 325 mg BIDWM SAYRA Administration Folic Acid 1 mg 10/08/17 10:00 10/08/17 10:11 Folic Acid - PO 1 mg DAILY SAYRA Administration Furosemide 40 mg 10/09/17 06:00 Lasix Injection - IVPUSH BID@0600,1400 [facility] Guaifenesin 10 ml 10/08/17 10:54 10/08/17 15:37 Diabetic Tussin Dm - PO 10 ml Q6H PRN Administration COUGH Lactulose 20 gm 10/07/17 22:15 10/08/17 10:10 Cephulac (Oral Use) PO 20 gm BID SAYRA Administration Loratadine 10 mg 10/08/17 10:00 10/08/17 10:10 Claritin - PO 10 mg DAILY SAYRA Administration Neomycin Sulfate 500 mg 10/08/17 10:00 10/08/17 10:12 Mycifradin - PO 500 mg BID SAYRA Administration Nystatin 1 applic 10/08/17 10:00 10/08/17 10:12 Nystop Powder - TP 1 applic DAILY SAYRA Administration Spironolactone 50 mg 10/08/17 13:00 10/08/17 15:37 Aldactone - PO 50 mg BID SAYRA Administration Last Vital Signs Temp Pulse Resp BP Pulse Ox 98.6 F 68 20 125/66 95 10/08/17 15:00 10/08/17 15:00 10/08/17 15:00 10/08/17 15:00 10/08/17 09:00 Cor: RSR, No murmurs, No gallops Lungs: decreased at bases Abd: Soft, Normal bowel sounds, ascites++ Ext:2_ edema Abnormal Lab Results 10/07/17 10/08/17 10/08/17 21:53 05:35 05:35 WBC 2.9 L RBC 2.51 L Hgb 8.2 L D Hct 24.9 L MCV 99.3 H RDW 20.1 H Plt Count 51 L Monocytes % 12.1 H Eosinophils % 5.4 H Anion Gap 6 L BUN 36 H Creatinine 1.6 H Calcium 7.5 L Ferritin 398.574 H Crossmatch See Detail A/P 57 y/o patient with Non-alcoholic liver cirrhosis Pancytopenia/coagulopathy related to liver disease No active bleeding s/p 2 units PRBCS Transfuse FFP/platelets/PRBCs if actively bleeding or prior to procedures Low AG ratio---due to cirrhosis check SPEP/UPEP h/o polyclonal gammopathy--followed by dr. Donnelly
--- NOTE | 2017-10-08 13:13 | CONS ---
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 The patient apparently was recently hospitalized at [facility]. At that time, he was placed on Lasix. He was discharged to [place]. He states in [place] he is starting to gain weight. He also complained of fluid leaking from his abdomen. He presented to the emergency room with above. On admission, he had a chest x-ray that revealed mild pulmonary vascular congestion. He was admitted to the floor where he was started on Lasix. He was also transfused. The patient denies any history of ETOH. He has a history of smoking a pipe. Denies any cigarette use. He denies any history of COPD or asthma in the past. There is no history of DVT or PE in the past. PAST MEDICAL HISTORY: Again, includes congestive heart failure, hypertension, chronic kidney disease, morbid obesity, polyclonal hypergammaglobulinemia, and pancytopenia. REVIEW OF SYSTEMS: Mildly dyspneic. No cough, no chest pain, no palpitations. No fevers, no chills, no hemoptysis. He has increased abdominal girth. Positive lower extremity edema. CURRENT MEDICATIONS: Include lactulose, Neomycin Sulfate, diabetic Tussin, albuterol, DuoNeb, Coreg, Feosol, Lasix, nystatin, calcium carbonate, Claritin, , folic acid. PHYSICAL EXAMINATION: General: The patient is a morbidly obese male well developed, well nourished, mildly dyspneic but in no acute distress. Vital Signs: He is currently afebrile. Blood pressure is 105/53, respiratory rate 20, O2 saturation 97% on room air. HEENT: Normocephalic and atraumatic. Neck: Supple. Heart: Regular S1, S2. Chest: Diminished breath sounds bilaterally. Abdomen: Soft, obese. Positive ascites. Extremities: Bilateral extremity edema. LABORATORIES: WBC 2.9, hemoglobin 8.2, hematocrit 24 with platelet count of 51,000. INR 2.09, BUN 36, creatinine 1.6, BNP 409. Chest x-ray rotated film. IMPRESSION: 1. Pancytopenia. 2. Dyspnea secondary to morbid obesity, fluid overload, and severe anemia. 3. Chronic liver disease, ascites. 4. Chronic kidney disease. 5. Morbid obesity. PLAN: O2, inhaled bronchodilators. Daily weights. Lasix, lactulose. Transfuse. Supplemental O2 p.r.n. Obtain follow up chest x-rays. MADISON ELISE M.D. [id number]
[2017-10-08] MEDS: SPIRONOLACTONE 25 MG TABLET (FP) PO SCH ×2 (15:37→22:08)
[2017-10-08] MEDS: guaiFENesin/D-M SUGAR-FREE/ACLHOL-FREE 118 ML BOTTLE PO PRN (15:37)
--- NOTE | 2017-10-08 15:55 | CONSULT ---
Consult Consult Specialty:: Nephrology Reason for Consultation:: ckd - History of Present Illness Chief Complaint: fluid overlaod, lower extremity edema and ascites History of Present Illness: Pt is a 57 year old male with pmhx of CKD, CHF, morbid obesity, HTN, hyperlipidemia, GERD, liver cirrhosis secondy to fatty liver disease, and pancytopenia who presents to the ER with increase abdominal distention and lower extremity edema. He is on lasix as an outpt. He denies fevers or chills. He is not sure what his baseline creatinine is. He denies diarrhea or vomiting. He denies shortness of breath. He follows with a chef kitchen manager in [facility]. He has been non compliant per the [place] records. He denies chest pain or palpitations. - History Source History Provided By: Patient, Medical Record - Past Medical History Cardio/Vascular: Yes: CAD, CHF, HTN Gastrointestinal: Yes: Ascites, Other (liver cirrhosis) Hepatobiliary: Yes: Cirrhosis Renal/: Yes: Renal Inusuff Heme/Onc: Yes: Anemia, Other (pancytopenia) Additional Medical History: morbid obesity - Alcohol/Substance Use Hx Alcohol Use: No - Smoking History Smoking history: Never smoked Have you smoked in the past 12 months: No Home Medications - Allergies Allergies/Adverse Reactions: Allergies Allergy/AdvReac Type Severity Reaction Status Date / Time No Known Allergies Allergy Verified 10/07/17 16:58 - Home Medications Home Medications: Ambulatory Orders Furosemide [Lasix] 20 mg PO BID 07/31/17 Nystatin Powder [Nystop Topical Powder -] 100,000 gm TP DAILY 08/10/17 Acetaminophen [Tylenol] 650 mg PO ASDIR 10/07/17 Cyanocobalamin (Vitamin B-12) [Vitamin B-12] 100 mcg PO DAILY 10/07/17 Guaifenesin [Robitussin] 15 ml PO 10/07/17 Menthol [Icy Hot] 1 each TP DAILY 10/07/17 Neomycin Sulfate 500 mg PO BID 10/07/17 Zinc Oxide TP DAILY 10/07/17 Albuterol 0.083% Nebulizer Kori [Ventolin 0.083% Nebulizer Soln -] 1 neb NEB Q6H PRN 10/08/17 Calcium 500-Vit D3 200 Caplet PO BID 10/08/17 Carvedilol [Coreg] 3.125 mg PO BID 10/08/17 Ferrous Sulfate [Iron] 325 mg PO BID 10/08/17 Folic Acid 1 mg PO 10/08/17 Lactulose PO BID 10/08/17 Loratadine [Claritin] 10 mg PO DAILY 10/08/17 Family Disease History - Family Disease History Family History: Denies Review of Systems - Review of Systems Constitutional: denies: Chills, Fever Eyes: reports: No Symptoms HENT: reports: No Symptoms Neck: reports: No Symptoms Cardiovascular: reports: Edema Respiratory: reports: SOB Genitourinary: reports: No Symptoms Musculoskeletal: reports: No Symptoms Neurological: reports: No Symptoms Endocrine: reports: No Symptoms Hematology/Lymphatic: reports: No Symptoms Physical Exam Vital Signs: Vital Signs Temperature 98.3 F 10/08/17 10:00 Pulse Rate 72 10/08/17 10:00 Respiratory Rate 20 10/08/17 10:00 Blood Pressure 105/53 10/08/17 10:00 O2 Sat by Pulse Oximetry (%) 97 10/07/17 23:00 Constitutional: Yes: Calm HENT: Yes: Atraumatic Cardiovascular: Yes: S1, S2 Respiratory: Yes: CTA Bilaterally Gastrointestinal: Yes: Abdomen, Obese, Ascites Renal/: Yes: Incontinence Musculoskeletal: Yes: Muscle Weakness Extremities: Yes: Other (obese) Edema: Yes Edema: LLE: 3+, RLE: 3+ Integumentary: Yes: Venous Stasis Changes Wound/Incision: Yes: Open to air Neurological: Yes: Oriented Psychiatric: Yes: Oriented Labs: CBC, BMP 10/08/17 05:35 10/08/17 05:35 Laboratory Tests 10/07/17 10/07/17 10/07/17 17:25 17:25 17:25 WBC Hgb 7.3 L D INR 2.09 H Sodium Potassium Chloride Carbon Dioxide BUN 36 H D Creatinine 1.6 H D B-Natriuretic Peptide Urine Protein Urine Blood 10/07/17 10/07/17 10/08/17 17:25 17:50 05:35 WBC 2.9 L Hgb 8.2 L D INR Sodium Potassium Chloride Carbon Dioxide BUN Creatinine B-Natriuretic Peptide 409.21 H Urine Protein Negative Urine Blood 2+ H 10/08/17 05:35 WBC Hgb INR Sodium 141 Potassium 4.5 Chloride 103 Carbon Dioxide 32 BUN 36 H Creatinine 1.6 H B-Natriuretic Peptide Urine Protein Urine Blood Imaging - Results Chest X-ray: Report Reviewed (limited due to body habitus) Problem List - Problems (1) Anasarca Code(s): R60.1 - GENERALIZED EDEMA (2) Ascites Code(s): R18.8 - OTHER ASCITES (3) CKD (chronic kidney disease) Code(s): N18.9 - CHRONIC KIDNEY DISEASE, UNSPECIFIED Qualifiers: Chronic kidney disease stage: stage 3 (moderate) Qualified Code(s): N18.3 - Chronic kidney disease, stage 3 (moderate) (4) Fatty liver Code(s): K76.0 - FATTY (CHANGE OF) LIVER, NOT ELSEWHERE CLASSIFIED (5) 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 Code(s): K75.81 - NONALCOHOLIC STEATOHEPATITIS (NIETO); K74.60 - UNSPECIFIED CIRRHOSIS OF LIVER (6) Pancytopenia Code(s): D61.818 - OTHER PANCYTOPENIA (7) CHF (congestive heart failure) Code(s): I50.9 - HEART FAILURE, UNSPECIFIED Qualifiers: Congestive heart failure type: unspecified Congestive heart failure chronicity: acute on chronic Qualified Code(s): I50.9 - Heart failure, unspecified Assessment/Plan Current Medications Generic Name Dose Route Start Last Admin Trade Name Freq PRN Reason Stop Dose Admin Albuterol/Ipratropium 1 amp 10/08/17 10:54 10/08/17 14:10 Duoneb - NEB 1 amp Q6H PRN Administration SHORTNESS OF BREATH Calcium Carbonate/Cholecalciferol 1 tab 10/08/17 10:00 10/08/17 10:13 Os-Gera 500+D - PO 1 tab BID SAYRA Administration Carvedilol 3.125 mg 10/08/17 10:00 10/08/17 10:11 Coreg - PO 3.125 mg BID SAYRA Administration Cyanocobalamin 100 mcg 10/08/17 10:00 10/08/17 10:13 Vitamin B12 - PO 100 mcg DAILY SAYRA Administration Ferrous Sulfate 325 mg 10/08/17 08:00 10/08/17 17:53 Feosol - PO 325 mg BIDWM SAYRA Administration Folic Acid 1 mg 10/08/17 10:00 10/08/17 10:11 Folic Acid - PO 1 mg DAILY SAYRA Administration Furosemide 40 mg 10/08/17 10:00 10/08/17 11:11 Lasix Injection - IVPUSH Not Given DAILY SAYRA Guaifenesin 10 ml 10/08/17 10:54 10/08/17 15:37 Diabetic Tussin Dm - PO 10 ml Q6H PRN Administration COUGH Lactulose 20 gm 10/07/17 22:15 10/08/17 10:10 Cephulac (Oral Use) PO 20 gm BID SAYRA Administration Loratadine 10 mg 10/08/17 10:00 10/08/17 10:10 Claritin - PO 10 mg DAILY SAYRA Administration Neomycin Sulfate 500 mg 10/08/17 10:00 10/08/17 10:12 Mycifradin - PO 500 mg BID SAYRA Administration Nystatin 1 applic 10/08/17 10:00 10/08/17 10:12 Nystop Powder - TP 1 applic DAILY SAYRA Administration Spironolactone 50 mg 10/08/17 13:00 10/08/17 15:37 Aldactone - PO 50 mg BID SAYRA Administration Impression 1. CKD 2. fluid overload 3. liver cirrhosis 4. fatty liver 5. morbid obesity 6. pancytopenia 7. CHF 8. GERD 9. hyperlipidemia 10. microscopic hematuria Plan - check ultrasound of the kidneys and bladder as he has microscopic hematuria - agree with adding aldactone - cont with lasix - repeat labs in am - will send urine lytes however value will be affected as he is on diuretics - GI input appreciated - recommend weight loss - discussed compliance with meds and diet - will not give a fluid challenge as he is fluid overloaded - likely ckd in part from hepatorenal disease - will follow Dr Reaves
[2017-10-09] MEDS: FUROSEMIDE 40 MG/4 ML INJECTABLE VIAL IVPUSH SCH ×2 (05:55→16:44)
[2017-10-09 07:57] LABS: ALBUMIN 1.4 g/dl (3.4-5.0); ANION GAP 5 (8-16); BILIRUBIN,TOTAL 2.5 mg/dL (0.2-1.0); BLOOD UREA NITROGEN 34 mg/dL (7-18); CALCIUM 7.5 mg/dL (8.5-10.1); CHLORIDE 103 mmol/L (98-107); CO2 32 mmol/L (21-32); CREATININE 1.6 mg/dL (0.7-1.3); GLUCOSE,RANDOM 85 mg/dL (74-106); POTASSIUM 4.5 mmol/L (3.5-5.1); SGOT/AST 57 U/L (15-37); SODIUM 140 mmol/L (136-145); TOT PROT 7.2 g/dl (6.4-8.2)
[2017-10-09 08:00] LABS: INR 2.04 (0.82-1.09)
[2017-10-09 08:01] LABS: ALK PHOS 105 U/L (45-117); SGPT/ALT 22 U/L (12-78)
[2017-10-09 08:02] LABS: BASO % 0.7 % (0-2.0); EOS % 4.3 % (0-4.5); HEMATOCRIT 25.3 % (35.4-49); HEMOGLOBIN 8.4 GM/dL (11.7-16.9); LYMPH % 15.9 % (8-40); MCH 32.6 pg (25.7-33.7); MCHC 33.3 g/dl (32.0-35.9); MEAN CELL VOLUME 97.7 fl (80-96); MEAN PLT VOLUME 7.9 fl (7.5-11.1); NEUT % 67.1 % (42.8-82.8); PLATELET COUNT 45 K/MM3 (134-434); RBC 2.59 M/mm3 (4.00-5.60); RDW 19.9 % (11.9-15.9); WHITE BLOOD COUNT 2.9 K/mm3 (4.0-10.0)
[2017-10-09 08:12] LABS: SERUM IRON SATURATION 78 % (15-55); TOTAL IRON BINDING CAPACITY 115 ug/dL (250-450); UIBC 25 ug/dL (111-343)
[2017-10-09] MEDS: guaiFENesin/D-M SUGAR-FREE/ACLHOL-FREE 118 ML BOTTLE PO PRN (09:46)
[2017-10-09] MEDS: LORATADINE 10 MG TABLET PO SCH (09:47)
[2017-10-09] MEDS: FERROUS SO4 325 MG TABLET (FP) PO SCH ×2 (09:47→16:44)
[2017-10-09] MEDS: LACTULOSE 20 GM/30 ML UDC (FOR ORAL USE ONLY) PO SCH ×2 (09:47→21:50)
[2017-10-09] MEDS: CALCIUM 500MG/VIT-D 200 UNITS COMBO TABLET (FP) PO SCH ×2 (09:47→21:52)
[2017-10-09] MEDS: SPIRONOLACTONE 25 MG TABLET (FP) PO SCH ×2 (09:47→21:52)
[2017-10-09] MEDS: FOLIC ACID 1 MG TABLET (FP) PO SCH (09:47)
[2017-10-09] MEDS: CARVEDILOL 3.125 MG TABLET (FP) PO SCH ×2 (09:47→21:52)
[2017-10-09] MEDS: CYANOCOBALAMIN (VITAMIN B-12) 100 MCG TABLET PO SCH (09:47)
[2017-10-09] MEDS: NYSTATIN POWDER 100,000 UNITS/GM - 15 GM TOPICAL POWDER TP SCH (09:48)
[2017-10-09] MEDS: NEOMYCIN SO4 500 MG TABLET PO SCH ×2 (09:48→21:52)
--- NOTE | 2017-10-09 13:03 | PN ---
Progress Note (short form) - Note Progress Note: PULMONARY States breathing slightly improved. Has been urinating frequently with lasix. Last Vital Signs Temp Pulse Resp BP Pulse Ox 98.0 F 70 18 106/53 95 10/09/17 10:00 10/09/17 10:00 10/09/17 10:00 10/09/17 10:00 10/09/17 10:00 Gen: NAD at rest Heart: RRR Lung: decreased breath sounds at the bases Abd: soft, nontender Ext: + edema CBC, BMP 10/09/17 05:18 10/09/17 05:18 Active Medications Albuterol/Ipratropium (Duoneb -) 1 amp NEB Q6H PRN PRN Reason: SHORTNESS OF BREATH Last Admin: 10/08/17 14:10 Dose: 1 amp Calcium Carbonate/Cholecalciferol (Os-Gera 500+D -) 1 tab PO BID [facility] Last Admin: 10/09/17 09:47 Dose: 1 tab Carvedilol (Coreg -) 3.125 mg PO BID [facility] Last Admin: 10/09/17 09:47 Dose: 3.125 mg Cyanocobalamin (Vitamin B12 -) 100 mcg PO DAILY [facility] Last Admin: 10/09/17 09:47 Dose: 100 mcg Ferrous Sulfate (Feosol -) 325 mg PO BIDWM [facility] Last Admin: 10/09/17 09:47 Dose: 325 mg Folic Acid (Folic Acid -) 1 mg PO DAILY [facility] Last Admin: 10/09/17 09:47 Dose: 1 mg Furosemide (Lasix Injection -) 40 mg IVPUSH BID@0600,1400 [facility] Last Admin: 10/09/17 05:55 Dose: 40 mg Guaifenesin (Diabetic Tussin Dm -) 10 ml PO Q6H PRN PRN Reason: COUGH Last Admin: 10/09/17 09:46 Dose: 10 ml Lactulose (Cephulac (Oral Use)) 20 gm PO BID [facility] Last Admin: 10/09/17 09:47 Dose: 20 gm Loratadine (Claritin -) 10 mg PO DAILY [facility] Last Admin: 10/09/17 09:47 Dose: 10 mg Neomycin Sulfate (Mycifradin -) 500 mg PO BID [facility] Last Admin: 10/09/17 09:48 Dose: 500 mg Nystatin (Nystop Powder -) 1 applic TP DAILY [facility] Last Admin: 10/09/17 09:48 Dose: 1 applic Spironolactone (Aldactone -) 50 mg PO BID [facility] Last Admin: 10/09/17 09:47 Dose: 50 mg A/P Volume Overload Liver Cirrhosis Ascites r/o CHF CKD Morbid Obesity Likely CHARLES - IV lasix, aldactone - monitor urine output, creatinine - daily weights - O2 to keep SpO2 >90% - echocardiogram - outpt PFTs, PSG - DVT prophylaxis
--- NOTE | 2017-10-09 14:47 | PN ---
Progress Note, Physician Chief Complaint: AWAEK ALERT NAD - Current Medication List Current Medications: Active Medications Albuterol/Ipratropium (Duoneb -) 1 amp NEB Q6H PRN PRN Reason: SHORTNESS OF BREATH Last Admin: 10/08/17 14:10 Dose: 1 amp Calcium Carbonate/Cholecalciferol (Os-Gera 500+D -) 1 tab PO BID [facility] Last Admin: 10/09/17 09:47 Dose: 1 tab Carvedilol (Coreg -) 3.125 mg PO BID [facility] Last Admin: 10/09/17 09:47 Dose: 3.125 mg Cyanocobalamin (Vitamin B12 -) 100 mcg PO DAILY [facility] Last Admin: 10/09/17 09:47 Dose: 100 mcg Ferrous Sulfate (Feosol -) 325 mg PO BIDWM [facility] [place] Last Admin: 10/09/17 09:47 Dose: 325 mg Folic Acid (Folic Acid -) 1 mg PO DAILY [facility] Last Admin: 10/09/17 09:47 Dose: 1 mg Furosemide (Lasix Injection -) 40 mg IVPUSH BID@0600,1400 [facility] [place] Last Admin: 10/09/17 05:55 Dose: 40 mg Guaifenesin (Diabetic Tussin Dm -) 10 ml PO Q6H PRN PRN Reason: COUGH Last Admin: 10/09/17 09:46 Dose: 10 ml Lactulose (Cephulac (Oral Use)) 20 gm PO BID [facility] [place] Last Admin: 10/09/17 09:47 Dose: 20 gm Loratadine (Claritin -) 10 mg PO DAILY [facility] [place] Last Admin: 10/09/17 09:47 Dose: 10 mg Neomycin Sulfate (Mycifradin -) 500 mg PO BID [facility] [place] Last Admin: 10/09/17 09:48 Dose: 500 mg Nystatin (Nystop Powder -) 1 applic TP DAILY [facility] Last Admin: 10/09/17 09:48 Dose: 1 applic Spironolactone (Aldactone -) 50 mg PO BID [facility] Last Admin: 10/09/17 09:47 Dose: 50 mg - Objective Vital Signs: Vital Signs Temperature 98.0 F 10/09/17 10:00 Pulse Rate 70 10/09/17 10:00 Respiratory Rate 18 10/09/17 10:00 Blood Pressure 106/53 10/09/17 10:00 O2 Sat by Pulse Oximetry (%) 95 10/09/17 10:00 Constitutional: Yes: No Distress Eyes: Yes: WNL HENT: Yes: WNL Neck: Yes: WNL Cardiovascular: Yes: WNL Respiratory: Yes: Cough, On Nasal O2 Gastrointestinal: Yes: WNL Genitourinary: Yes: Incontinence Musculoskeletal: Yes: Muscle Weakness Extremities: Yes: WNL Edema: Yes Peripheral Pulses WNL: Yes Integumentary: Yes: WNL Wound/Incision: Yes: Clean/Dry Neurological: Yes: Pre-Existing Deficit ...Motor Strength: LLE, RLE Psychiatric: Yes: Other Labs: CBC, BMP 10/09/17 05:18 10/09/17 05:18 INR, PTT INR 2.04 (0.82-1.09) H 10/09/17 05:18 Problem List - Problems (1) Anasarca Code(s): R60.1 - GENERALIZED EDEMA (2) Ascites Code(s): R18.8 - OTHER ASCITES (3) CKD (chronic kidney disease) Code(s): N18.9 - CHRONIC KIDNEY DISEASE, UNSPECIFIED Qualifiers: Chronic kidney disease stage: stage 3 (moderate) Qualified Code(s): N18.3 - Chronic kidney disease, stage 3 (moderate) (4) Fatty liver Code(s): K76.0 - FATTY (CHANGE OF) LIVER, NOT ELSEWHERE CLASSIFIED (5) Symptomatic anemia Code(s): D64.9 - ANEMIA, UNSPECIFIED (6) CHF (congestive heart failure) Code(s): I50.9 - HEART FAILURE, UNSPECIFIED Qualifiers: Congestive heart failure type: unspecified Congestive heart failure chronicity: acute on chronic Qualified Code(s): I50.9 - Heart failure, unspecified (7) DVT prophylaxis Code(s): [id number] - (8) HLD (hyperlipidemia) Code(s): E78.5 - HYPERLIPIDEMIA, UNSPECIFIED Qualifiers: Hyperlipidemia type: mixed hyperlipidemia Qualified Code(s): E78.2 - Mixed hyperlipidemia (9) HTN (hypertension) Code(s): I10 - ESSENTIAL (PRIMARY) HYPERTENSION Qualifiers: Hypertension type: essential hypertension Qualified Code(s): I10 - Essential (primary) hypertension (10) Thrombocytopenia Code(s): D69.6 - THROMBOCYTOPENIA, UNSPECIFIED Assessment/Plan MONITOR ON TELE TRANSFUSE PRBC PULM/RENAL EVAL DUONEB LASIX IV OOB TO CHAIR PT EVAL GI FOLLOW UP
--- NOTE | 2017-10-09 15:14 | PN ---
Progress Note, Physician History of Present Illness: Pt seen and examined at bedside. He is awake and alert. He denies shortness of breath. - Current Medication List Current Medications: Active Medications Albuterol/Ipratropium (Duoneb -) 1 amp NEB Q6H PRN PRN Reason: SHORTNESS OF BREATH Last Admin: 10/08/17 14:10 Dose: 1 amp Calcium Carbonate/Cholecalciferol (Os-Gera 500+D -) 1 tab PO BID [facility] Last Admin: 10/09/17 09:47 Dose: 1 tab Carvedilol (Coreg -) 3.125 mg PO BID [facility] Last Admin: 10/09/17 09:47 Dose: 3.125 mg Cyanocobalamin (Vitamin B12 -) 100 mcg PO DAILY [facility] Last Admin: 10/09/17 09:47 Dose: 100 mcg Ferrous Sulfate (Feosol -) 325 mg PO BIDWM [facility] Last Admin: 10/09/17 09:47 Dose: 325 mg Folic Acid (Folic Acid -) 1 mg PO DAILY [facility] Last Admin: 10/09/17 09:47 Dose: 1 mg Furosemide (Lasix Injection -) 40 mg IVPUSH BID@0600,1400 [facility] Last Admin: 10/09/17 05:55 Dose: 40 mg Guaifenesin (Diabetic Tussin Dm -) 10 ml PO Q6H PRN PRN Reason: COUGH Last Admin: 10/09/17 09:46 Dose: 10 ml Lactulose (Cephulac (Oral Use)) 20 gm PO BID [facility] Last Admin: 10/09/17 09:47 Dose: 20 gm Loratadine (Claritin -) 10 mg PO DAILY [facility] Last Admin: 10/09/17 09:47 Dose: 10 mg Neomycin Sulfate (Mycifradin -) 500 mg PO BID [facility] Last Admin: 10/09/17 09:48 Dose: 500 mg Nystatin (Nystop Powder -) 1 applic TP DAILY [facility] Last Admin: 10/09/17 09:48 Dose: 1 applic Spironolactone (Aldactone -) 50 mg PO BID [facility] Last Admin: 10/09/17 09:47 Dose: 50 mg - Objective Vital Signs: Vital Signs Temperature 98.0 F 10/09/17 10:00 Pulse Rate 70 10/09/17 10:00 Respiratory Rate 18 10/09/17 10:00 Blood Pressure 106/53 10/09/17 10:00 O2 Sat by Pulse Oximetry (%) 95 10/09/17 10:00 Constitutional: Yes: Calm Eyes: Yes: Conjunctiva Clear HENT: Yes: Atraumatic Neck: Yes: Supple Cardiovascular: Yes: S1, S2 Respiratory: Yes: CTA Bilaterally Gastrointestinal: Yes: Soft, Abdomen, Obese, Ascites Genitourinary: Yes: Incontinence Musculoskeletal: Yes: Muscle Weakness Edema: Yes Edema: LLE: 3+, RLE: 3+ Integumentary: Yes: Venous Stasis Changes Neurological: Yes: Oriented Psychiatric: Yes: Oriented Labs: CBC, BMP 10/09/17 05:18 10/09/17 05:18 INR, PTT INR 2.04 (0.82-1.09) H 10/09/17 05:18 - ....Imaging Ultrasound: Report Reviewed Problem List - Problems (1) Anasarca Code(s): R60.1 - GENERALIZED EDEMA (2) Ascites Code(s): R18.8 - OTHER ASCITES (3) CKD (chronic kidney disease) Code(s): N18.9 - CHRONIC KIDNEY DISEASE, UNSPECIFIED Qualifiers: Chronic kidney disease stage: stage 3 (moderate) Qualified Code(s): N18.3 - Chronic kidney disease, stage 3 (moderate) (4) Fatty liver Code(s): K76.0 - FATTY (CHANGE OF) LIVER, NOT ELSEWHERE CLASSIFIED (5) 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 Code(s): K75.81 - NONALCOHOLIC STEATOHEPATITIS (NIETO); K74.60 - UNSPECIFIED CIRRHOSIS OF LIVER (6) Pancytopenia Code(s): D61.818 - OTHER PANCYTOPENIA (7) CHF (congestive heart failure) Code(s): I50.9 - HEART FAILURE, UNSPECIFIED Qualifiers: Congestive heart failure type: unspecified Congestive heart failure chronicity: acute on chronic Qualified Code(s): I50.9 - Heart failure, unspecified Assessment/Plan Current Medications Generic Name Dose Route Start Last Admin Trade Name Freq PRN Reason Stop Dose Admin Albuterol/Ipratropium 1 amp 10/08/17 10:54 10/08/17 14:10 Duoneb - NEB 1 amp Q6H PRN Administration SHORTNESS OF BREATH Calcium Carbonate/Cholecalciferol 1 tab 10/08/17 10:00 10/09/17 09:47 Os-Gera 500+D - PO 1 tab BID [facility] Administration Carvedilol 3.125 mg 10/08/17 10:00 10/09/17 09:47 Coreg - PO 3.125 mg BID [facility] Administration Cyanocobalamin 100 mcg 10/08/17 10:00 10/09/17 09:47 Vitamin B12 - PO 100 mcg DAILY [facility] Administration Ferrous Sulfate 325 mg 10/08/17 08:00 10/09/17 09:47 Feosol - PO 325 mg BIDWM [facility] Administration Folic Acid 1 mg 10/08/17 10:00 10/09/17 09:47 Folic Acid - PO 1 mg DAILY [facility] Administration Furosemide 40 mg 10/09/17 06:00 10/09/17 05:55 Lasix Injection - IVPUSH 40 mg BID@0600,1400 [facility] Administration Guaifenesin 10 ml 10/08/17 10:54 10/09/17 09:46 Diabetic Tussin Dm - PO 10 ml Q6H PRN Administration COUGH Lactulose 20 gm 10/07/17 22:15 10/09/17 09:47 Cephulac (Oral Use) PO 20 gm BID [facility] Administration Loratadine 10 mg 10/08/17 10:00 10/09/17 09:47 Claritin - PO 10 mg DAILY [facility] Administration Neomycin Sulfate 500 mg 10/08/17 10:00 10/09/17 09:48 Mycifradin - PO 500 mg BID [facility] Administration Nystatin 1 applic 10/08/17 10:00 10/09/17 09:48 Nystop Powder - TP 1 applic DAILY [facility] Administration Spironolactone 50 mg 10/08/17 13:00 10/09/17 09:47 Aldactone - PO 50 mg BID [facility] Administration Impression 1. CKD 2. fluid overload 3. liver cirrhosis 4. fatty liver 5. morbid obesity 6. pancytopenia 7. CHF 8. GERD 9. hyperlipidemia 10. microscopic hematuria Plan - cont with aldactone and lasix - renal ultrasound reviewed, suboptimal secondary to body habitus - GI follow up - monitor volume status - follow urine studies - recommend weight loss - likely ckd in part from hepatorenal disease - will follow Dr Reaves
--- NOTE | 2017-10-09 20:29 | PN ---
Progress Note (short form) - Note Progress Note: Patyient seen and examined Feels well. Wants to go home Last Vital Signs Temp Pulse Resp BP Pulse Ox 98.2 F 68 18 117/61 95 10/09/17 17:30 10/09/17 17:30 10/09/17 17:30 10/09/17 17:30 10/09/17 10:00 Cor: RSR, No murmurs, No gallops Lungs: Clear to P&A Abd: Soft, Normal bowel sounds, No organomegaly Ext:No significant edema Abnormal Lab Results 10/08/17 10/09/17 10/09/17 05:35 05:18 05:18 WBC 2.9 L RBC 2.59 L Hgb 8.4 L Hct 25.3 L MCV 97.7 H RDW 19.9 H Plt Count 45 L Monocytes % 12.0 H PT with INR INR Anion Gap 5 L BUN 34 H Creatinine 1.6 H Calcium 7.5 L TIBC 115 L Iron Saturation 78 H Total Bilirubin 2.5 H D Direct Bilirubin AST 57 H Albumin 1.4 L 10/09/17 10/09/17 05:18 05:18 WBC RBC Hgb Hct MCV RDW Plt Count Monocytes % PT with INR 23.00 H INR 2.04 H Anion Gap BUN Creatinine Calcium TIBC Iron Saturation Total Bilirubin Direct Bilirubin 1.0 H AST Albumin Active Medications Generic Name Dose Route Start Last Admin Trade Name Freq PRN Reason Stop Dose Admin Albuterol/Ipratropium 1 amp 10/08/17 10:54 10/08/17 14:10 Duoneb - NEB 1 amp Q6H PRN Administration SHORTNESS OF BREATH Calcium Carbonate/Cholecalciferol 1 tab 10/08/17 10:00 10/09/17 09:47 Os-Gera 500+D - PO 1 tab BID [facility] Administration Carvedilol 3.125 mg 10/08/17 10:00 10/09/17 09:47 Coreg - PO 3.125 mg BID [facility] Administration Cyanocobalamin 100 mcg 10/08/17 10:00 10/09/17 09:47 Vitamin B12 - PO 100 mcg DAILY [facility] Administration Ferrous Sulfate 325 mg 10/08/17 08:00 10/09/17 16:44 Feosol - PO 325 mg BIDWM [facility] Administration Folic Acid 1 mg 10/08/17 10:00 10/09/17 09:47 Folic Acid - PO 1 mg DAILY [facility] Administration Furosemide 40 mg 10/09/17 06:00 10/09/17 16:44 Lasix Injection - IVPUSH 40 mg BID@0600,1400 [facility] Administration Guaifenesin 10 ml 10/08/17 10:54 10/09/17 09:46 Diabetic Tussin Dm - PO 10 ml Q6H PRN Administration COUGH Lactulose 20 gm 10/07/17 22:15 10/09/17 09:47 Cephulac (Oral Use) PO 20 gm BID [facility] Administration Loratadine 10 mg 10/08/17 10:00 10/09/17 09:47 Claritin - PO 10 mg DAILY [facility] Administration Neomycin Sulfate 500 mg 10/08/17 10:00 10/09/17 09:48 Mycifradin - PO 500 mg BID [facility] Administration Nystatin 1 applic 10/08/17 10:00 10/09/17 09:48 Nystop Powder - TP 1 applic DAILY [facility] Administration Spironolactone 50 mg 10/08/17 13:00 10/09/17 09:47 Aldactone - PO 50 mg BID [facility] Administration 57 y/o patient with Non-alcoholic liver cirrhosis Pancytopenia/coagulopathy related to liver disease No active bleeding s/p 2 units PRBCS Transfuse FFP/platelets/PRBCs if actively bleeding or prior to procedures Low AG ratio---due to cirrhosis check SPEP/UPEP h/o polyclonal gammopathy--followed by dr. Donnelly
[2017-10-10] MEDS: FUROSEMIDE 40 MG/4 ML INJECTABLE VIAL IVPUSH SCH ×3 (05:37→23:35)
[2017-10-10 06:54] LABS: BASO % 0.7 % (0-2.0); EOS % 5.8 % (0-4.5); HEMATOCRIT 24.9 % (35.4-49); HEMOGLOBIN 8.2 GM/dL (11.7-16.9); LYMPH % 16.2 % (8-40); MCH 32.4 pg (25.7-33.7); MEAN CELL VOLUME 98.2 fl (80-96); MEAN PLT VOLUME 7.5 fl (7.5-11.1); MONO % 11.4 % (3.8-10.2); NEUT % 65.9 % (42.8-82.8); PLATELET COUNT 42 K/MM3 (134-434); RBC 2.53 M/mm3 (4.00-5.60); RDW 19.7 % (11.9-15.9); WHITE BLOOD COUNT 2.7 K/mm3 (4.0-10.0)
[2017-10-10 07:47] LABS: CHLORIDE 102 mmol/L (98-107); POTASSIUM 4.5 mmol/L (3.5-5.1); SODIUM 140 mmol/L (136-145)
[2017-10-10 08:03] LABS: ALBUMIN 1.3 g/dl (3.4-5.0); ALK PHOS 105 U/L (45-117); ANION GAP 6 (8-16); BILIRUBIN,TOTAL 2.4 mg/dL (0.2-1.0); BLOOD UREA NITROGEN 34 mg/dL (7-18); CALCIUM 7.4 mg/dL (8.5-10.1); CO2 32 mmol/L (21-32); CREATININE 1.6 mg/dL (0.7-1.3); GLUCOSE,RANDOM 80 mg/dL (74-106); SGOT/AST 53 U/L (15-37); SGPT/ALT 20 U/L (12-78); TOT PROT 7.2 g/dl (6.4-8.2)
[2017-10-10] MEDS: FERROUS SO4 325 MG TABLET (FP) PO SCH ×2 (08:18→17:11)
[2017-10-10] MEDS: LACTULOSE 20 GM/30 ML UDC (FOR ORAL USE ONLY) PO SCH ×2 (09:58→22:29)
[2017-10-10] MEDS: LORATADINE 10 MG TABLET PO SCH (09:59)
[2017-10-10] MEDS: FOLIC ACID 1 MG TABLET (FP) PO SCH (09:59)
[2017-10-10] MEDS: CALCIUM 500MG/VIT-D 200 UNITS COMBO TABLET (FP) PO SCH ×2 (09:59→22:29)
[2017-10-10] MEDS: CYANOCOBALAMIN (VITAMIN B-12) 100 MCG TABLET PO SCH (09:59)
[2017-10-10] MEDS: NEOMYCIN SO4 500 MG TABLET PO SCH ×2 (09:59→23:35)
[2017-10-10] MEDS: SPIRONOLACTONE 25 MG TABLET (FP) PO SCH ×2 (09:59→22:29)
[2017-10-10] MEDS: CARVEDILOL 3.125 MG TABLET (FP) PO SCH ×2 (09:59→22:29)
[2017-10-10] MEDS: NYSTATIN POWDER 100,000 UNITS/GM - 15 GM TOPICAL POWDER TP SCH (10:00)
--- NOTE | 2017-10-10 12:29 | PN ---
Progress Note (short form) - Note Progress Note: PULMONARY States breathing slowly improved. Has been urinating frequently with lasix. Last Vital Signs Temp Pulse Resp BP Pulse Ox 98.5 F 67 18 110/54 94 L 10/10/17 07:45 10/10/17 07:45 10/10/17 07:47 10/10/17 07:45 10/10/17 07:47 Intake & Output 10/07/17 10/08/17 10/09/17 10/10/17 23:59 23:59 23:59 23:59 Intake Total 1110 1040 10 Output Total 4025 600 Balance 1110 -2985 -590 Weight 166.468 kg Gen: NAD at rest Heart: RRR Lung: decreased breath sounds at the bases Abd: soft, nontender Ext: + edema CBC, BMP 10/10/17 05:18 10/10/17 05:18 Active Medications Albuterol/Ipratropium (Duoneb -) 1 amp NEB Q6H PRN PRN Reason: SHORTNESS OF BREATH Last Admin: 10/08/17 14:10 Dose: 1 amp Calcium Carbonate/Cholecalciferol (Os-Gera 500+D -) 1 tab PO BID [facility] Last Admin: 10/10/17 09:59 Dose: 1 tab Carvedilol (Coreg -) 3.125 mg PO BID [facility] Last Admin: 10/10/17 09:59 Dose: 3.125 mg Cyanocobalamin (Vitamin B12 -) 100 mcg PO DAILY [facility] Last Admin: 10/10/17 09:59 Dose: 100 mcg Ferrous Sulfate (Feosol -) 325 mg PO BIDWM [facility] Last Admin: 10/10/17 08:18 Dose: 325 mg Folic Acid (Folic Acid -) 1 mg PO DAILY [facility] Last Admin: 10/10/17 09:59 Dose: 1 mg Furosemide (Lasix Injection -) 40 mg IVPUSH BID@0600,1400 [facility] Last Admin: 10/10/17 05:37 Dose: 40 mg Guaifenesin (Diabetic Tussin Dm -) 10 ml PO Q6H PRN PRN Reason: COUGH Last Admin: 10/09/17 09:46 Dose: 10 ml Lactulose (Cephulac (Oral Use)) 20 gm PO BID [facility] Last Admin: 10/10/17 09:58 Dose: 20 gm Loratadine (Claritin -) 10 mg PO DAILY [facility] Last Admin: 10/10/17 09:59 Dose: 10 mg Neomycin Sulfate (Mycifradin -) 500 mg PO BID [facility] Last Admin: 10/10/17 09:59 Dose: 500 mg Nystatin (Nystop Powder -) 1 applic TP DAILY [facility] Last Admin: 10/10/17 10:00 Dose: Not Given Spironolactone (Aldactone -) 50 mg PO BID [facility] Last Admin: 10/10/17 09:59 Dose: 50 mg A/P Volume Overload Liver Cirrhosis Ascites r/o CHF CKD Morbid Obesity Likely CHARLES - IV lasix, aldactone - monitor urine output, creatinine - daily weights - O2 to keep SpO2 >90% - echocardiogram - outpt PFTs, PSG - DVT prophylaxis
--- NOTE | 2017-10-10 14:33 | PN ---
Progress Note, Physician Chief Complaint: AWAKE ALERT NAD LEG EDEMA - Current Medication List Current Medications: Active Medications Albuterol/Ipratropium (Duoneb -) 1 amp NEB Q6H PRN PRN Reason: SHORTNESS OF BREATH Last Admin: 10/08/17 14:10 Dose: 1 amp Calcium Carbonate/Cholecalciferol (Os-Gera 500+D -) 1 tab PO BID [facility] Last Admin: 10/10/17 09:59 Dose: 1 tab Carvedilol (Coreg -) 3.125 mg PO BID [facility] Last Admin: 10/10/17 09:59 Dose: 3.125 mg Cyanocobalamin (Vitamin B12 -) 100 mcg PO DAILY [facility] Last Admin: 10/10/17 09:59 Dose: 100 mcg Ferrous Sulfate (Feosol -) 325 mg PO BIDWM [facility] Last Admin: 10/10/17 08:18 Dose: 325 mg Folic Acid (Folic Acid -) 1 mg PO DAILY [facility] Last Admin: 10/10/17 09:59 Dose: 1 mg Furosemide (Lasix Injection -) 40 mg IVPUSH BID@0600,1400 [facility] Last Admin: 10/10/17 13:47 Dose: 40 mg Guaifenesin (Diabetic Tussin Dm -) 10 ml PO Q6H PRN PRN Reason: COUGH Last Admin: 10/09/17 09:46 Dose: 10 ml Lactulose (Cephulac (Oral Use)) 20 gm PO BID [facility] Last Admin: 10/10/17 09:58 Dose: 20 gm Loratadine (Claritin -) 10 mg PO DAILY [facility] Last Admin: 10/10/17 09:59 Dose: 10 mg Neomycin Sulfate (Mycifradin -) 500 mg PO BID [facility] Last Admin: 10/10/17 09:59 Dose: 500 mg Nystatin (Nystop Powder -) 1 applic TP DAILY [facility] Last Admin: 10/10/17 10:00 Dose: Not Given Spironolactone (Aldactone -) 50 mg PO BID [facility] Last Admin: 10/10/17 09:59 Dose: 50 mg - Objective Vital Signs: Vital Signs Temperature 98.5 F 10/10/17 07:45 Pulse Rate 67 10/10/17 07:45 Respiratory Rate 18 10/10/17 07:47 Blood Pressure 110/54 10/10/17 07:45 O2 Sat by Pulse Oximetry (%) 94 L 10/10/17 07:47 Constitutional: Yes: Mild Distress Eyes: Yes: WNL HENT: Yes: WNL Neck: Yes: WNL Cardiovascular: Yes: WNL Respiratory: Yes: WNL Gastrointestinal: Yes: WNL Genitourinary: Yes: Incontinence Musculoskeletal: Yes: Muscle Weakness Extremities: Yes: Other Edema: Yes Edema: LLE: 3+, RLE: 3+ Peripheral Pulses WNL: Yes Integumentary: Yes: WNL Wound/Incision: Yes: Clean/Dry Neurological: Yes: Pre-Existing Deficit ...Motor Strength: LLE, RLE Psychiatric: Yes: Other Labs: CBC, BMP 10/10/17 05:18 10/10/17 05:18 INR, PTT INR 2.04 (0.82-1.09) H 10/09/17 05:18 Problem List - Problems (1) Anasarca Code(s): R60.1 - GENERALIZED EDEMA (2) Ascites Code(s): R18.8 - OTHER ASCITES (3) CKD (chronic kidney disease) Code(s): N18.9 - CHRONIC KIDNEY DISEASE, UNSPECIFIED Qualifiers: Chronic kidney disease stage: stage 3 (moderate) Qualified Code(s): N18.3 - Chronic kidney disease, stage 3 (moderate) (4) Fatty liver Code(s): K76.0 - FATTY (CHANGE OF) LIVER, NOT ELSEWHERE CLASSIFIED (5) Symptomatic anemia Code(s): D64.9 - ANEMIA, UNSPECIFIED (6) CHF (congestive heart failure) Code(s): I50.9 - HEART FAILURE, UNSPECIFIED Qualifiers: Congestive heart failure type: unspecified Congestive heart failure chronicity: acute on chronic Qualified Code(s): I50.9 - Heart failure, unspecified (7) DVT prophylaxis Code(s): [id number] - (8) HLD (hyperlipidemia) Code(s): E78.5 - HYPERLIPIDEMIA, UNSPECIFIED Qualifiers: Hyperlipidemia type: mixed hyperlipidemia Qualified Code(s): E78.2 - Mixed hyperlipidemia (9) HTN (hypertension) Code(s): I10 - ESSENTIAL (PRIMARY) HYPERTENSION Qualifiers: Hypertension type: essential hypertension Qualified Code(s): I10 - Essential (primary) hypertension (10) Thrombocytopenia Code(s): D69.6 - THROMBOCYTOPENIA, UNSPECIFIED Assessment/Plan MONITOR ON TELE TRANSFUSE PRBC PULM/RENAL EVAL DUCARLOS TORO IV OOB TO CHAIR PT EVAL GI FOLLOW UP
--- NOTE | 2017-10-10 15:16 | PN ---
Progress Note, Physician History of Present Illness: c/o abdominal discomfort, no pain. Able to finish all his meals, no sob while supine. No events otherwise. - Current Medication List Current Medications: Active Medications Albuterol/Ipratropium (Duoneb -) 1 amp NEB Q6H PRN PRN Reason: SHORTNESS OF BREATH Last Admin: 10/08/17 14:10 Dose: 1 amp Calcium Carbonate/Cholecalciferol (Os-Gera 500+D -) 1 tab PO BID [facility] Last Admin: 10/10/17 09:59 Dose: 1 tab Carvedilol (Coreg -) 3.125 mg PO BID [facility] Last Admin: 10/10/17 09:59 Dose: 3.125 mg Cyanocobalamin (Vitamin B12 -) 100 mcg PO DAILY [facility] Last Admin: 10/10/17 09:59 Dose: 100 mcg Ferrous Sulfate (Feosol -) 325 mg PO BIDWM [facility] Last Admin: 10/10/17 08:18 Dose: 325 mg Folic Acid (Folic Acid -) 1 mg PO DAILY [facility] Last Admin: 10/10/17 09:59 Dose: 1 mg Furosemide (Lasix Injection -) 40 mg IVPUSH BID@0600,1400 [facility] Last Admin: 10/10/17 13:47 Dose: 40 mg Guaifenesin (Diabetic Tussin Dm -) 10 ml PO Q6H PRN PRN Reason: COUGH Last Admin: 10/09/17 09:46 Dose: 10 ml Lactulose (Cephulac (Oral Use)) 20 gm PO BID [facility] Last Admin: 10/10/17 09:58 Dose: 20 gm Loratadine (Claritin -) 10 mg PO DAILY [facility] Last Admin: 10/10/17 09:59 Dose: 10 mg Neomycin Sulfate (Mycifradin -) 500 mg PO BID [facility] Last Admin: 10/10/17 09:59 Dose: 500 mg Nystatin (Nystop Powder -) 1 applic TP DAILY [facility] Last Admin: 10/10/17 10:00 Dose: Not Given Spironolactone (Aldactone -) 50 mg PO BID [facility] Last Admin: 10/10/17 09:59 Dose: 50 mg - Objective Vital Signs: Vital Signs Temperature 98.8 F 10/10/17 14:39 Pulse Rate 65 10/10/17 14:39 Respiratory Rate 18 10/10/17 14:39 Blood Pressure 109/56 10/10/17 14:39 O2 Sat by Pulse Oximetry (%) 94 L 10/10/17 07:47 Constitutional: Yes: No Distress, Calm Eyes: Yes: Conjunctiva Clear HENT: Yes: Atraumatic Neck: Yes: Supple Gastrointestinal: Yes: Abdomen, Obese, Ascites, Distention. No: Melena, Rectal Bleeding, Tenderness, Tenderness, Epigastrium, Tenderness, Rebound, Vomiting Neurological: Yes: Alert, Oriented Labs: CBC, BMP 10/10/17 05:18 10/10/17 05:18 INR, PTT INR 2.04 (0.82-1.09) H 10/09/17 05:18 CBCD WBC 2.7 K/mm3 (4.0-10.0) L 10/10/17 05:18 RBC 2.53 M/mm3 (4.00-5.60) L 10/10/17 05:18 Hgb 8.2 GM/dL (11.7-16.9) L 10/10/17 05:18 Hct 24.9 % (35.4-49) L 10/10/17 05:18 MCV 98.2 fl (80-96) H 10/10/17 05:18 MCHC 33.0 g/dl (32.0-35.9) 10/10/17 05:18 RDW 19.7 % (11.9-15.9) H 10/10/17 05:18 Plt Count 42 K/MM3 (134-434) L 10/10/17 05:18 MPV 7.5 fl (7.5-11.1) 10/10/17 05:18 CMP Sodium 140 mmol/L (136-145) 10/10/17 05:18 Potassium 4.5 mmol/L (3.5-5.1) 10/10/17 05:18 Chloride 102 mmol/L (98-107) 10/10/17 05:18 Carbon Dioxide 32 mmol/L (21-32) 10/10/17 05:18 Anion Gap 6 (8-16) L 10/10/17 05:18 BUN 34 mg/dL (7-18) H 10/10/17 05:18 Creatinine 1.6 mg/dL (0.7-1.3) H 02/04/18 05:18 Creat Clearance w eGFR 44.46 (>60) 10/10/17 05:18 Calcium 7.4 mg/dL (8.5-10.1) L 10/10/17 05:18 Total Bilirubin 2.4 mg/dL (0.2-1.0) H 10/10/17 05:18 AST 53 U/L (15-37) H 10/10/17 05:18 ALT 20 U/L (12-78) 10/10/17 05:18 Alkaline Phosphatase 105 U/L (45-117) 10/10/17 05:18 Total Protein 7.2 g/dl (6.4-8.2) 10/10/17 05:18 Albumin 1.3 g/dl (3.4-5.0) L 10/10/17 05:18 - ....Imaging Ultrasound: Report Reviewed (Ascites) Problem List - Problems (1) 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 No signs of encephalopahy No signs of GI bleeding SBP not suspected HRS possible given the elevated Cr Ascites as reported by US however no orthopnea, early satiety, or tens ascites on exam lasix, aldactone, lactulose, neomycin Daily CMP, CBC, PT/INR Daily weight, I&O 2 gm salt diet If cannot titrate diuretics up due to renal insufficiency, or electrolytes abnormalities, a theraputic paracentesis can be considered if tens ascites, early satiety, or orthopnea present.
--- NOTE | 2017-10-10 18:38 | PN ---
Progress Note, Physician History of Present Illness: Pt seen and examined at bedside. He does not feel that the edema is much different. - Current Medication List Current Medications: Active Medications Albuterol/Ipratropium (Duoneb -) 1 amp NEB Q6H PRN PRN Reason: SHORTNESS OF BREATH Last Admin: 10/08/17 14:10 Dose: 1 amp Calcium Carbonate/Cholecalciferol (Os-Gera 500+D -) 1 tab PO BID [facility] Last Admin: 10/10/17 09:59 Dose: 1 tab Carvedilol (Coreg -) 3.125 mg PO BID [facility] Last Admin: 10/10/17 09:59 Dose: 3.125 mg Cyanocobalamin (Vitamin B12 -) 100 mcg PO DAILY [facility] Last Admin: 10/10/17 09:59 Dose: 100 mcg Ferrous Sulfate (Feosol -) 325 mg PO BIDWM [facility] Last Admin: 10/10/17 08:18 Dose: 325 mg Folic Acid (Folic Acid -) 1 mg PO DAILY [facility] Last Admin: 10/10/17 09:59 Dose: 1 mg Furosemide (Lasix Injection -) 40 mg IVPUSH BID@0600,1400 [facility] Last Admin: 10/10/17 13:47 Dose: 40 mg Guaifenesin (Diabetic Tussin Dm -) 10 ml PO Q6H PRN PRN Reason: COUGH Last Admin: 10/09/17 09:46 Dose: 10 ml Lactulose (Cephulac (Oral Use)) 20 gm PO BID [facility] Last Admin: 10/10/17 09:58 Dose: 20 gm Loratadine (Claritin -) 10 mg PO DAILY [facility] Last Admin: 10/10/17 09:59 Dose: 10 mg Neomycin Sulfate (Mycifradin -) 500 mg PO BID [facility] Last Admin: 10/10/17 09:59 Dose: 500 mg Nystatin (Nystop Powder -) 1 applic TP DAILY [facility] Last Admin: 10/10/17 10:00 Dose: Not Given Spironolactone (Aldactone -) 50 mg PO BID [facility] Last Admin: 10/10/17 09:59 Dose: 50 mg - Objective Vital Signs: Vital Signs Temperature 98.8 F 10/10/17 14:39 Pulse Rate 65 10/10/17 14:39 Respiratory Rate 18 10/10/17 14:39 Blood Pressure 109/56 10/10/17 14:39 O2 Sat by Pulse Oximetry (%) 94 L 10/10/17 07:47 Constitutional: Yes: Calm Eyes: Yes: Conjunctiva Clear HENT: Yes: Atraumatic Cardiovascular: Yes: S1, S2 Respiratory: Yes: Diminished Gastrointestinal: Yes: Soft, Abdomen, Obese, Ascites Genitourinary: Yes: WNL Musculoskeletal: Yes: Muscle Weakness Edema: Yes Edema: LLE: 3+, RLE: 3+ Neurological: Yes: Oriented Psychiatric: Yes: Oriented Labs: CBC, BMP 10/10/17 05:18 10/10/17 05:18 INR, PTT INR 2.04 (0.82-1.09) H 10/09/17 05:18 Problem List - Problems (1) Anasarca Code(s): R60.1 - GENERALIZED EDEMA (2) Ascites Code(s): R18.8 - OTHER ASCITES (3) CKD (chronic kidney disease) Code(s): N18.9 - CHRONIC KIDNEY DISEASE, UNSPECIFIED Qualifiers: Chronic kidney disease stage: stage 3 (moderate) Qualified Code(s): N18.3 - Chronic kidney disease, stage 3 (moderate) (4) Fatty liver Code(s): K76.0 - FATTY (CHANGE OF) LIVER, NOT ELSEWHERE CLASSIFIED (5) 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 Code(s): K75.81 - NONALCOHOLIC STEATOHEPATITIS (NIETO); K74.60 - UNSPECIFIED CIRRHOSIS OF LIVER (6) Pancytopenia Code(s): D61.818 - OTHER PANCYTOPENIA (7) CHF (congestive heart failure) Code(s): I50.9 - HEART FAILURE, UNSPECIFIED Qualifiers: Congestive heart failure type: unspecified Congestive heart failure chronicity: acute on chronic Qualified Code(s): I50.9 - Heart failure, unspecified Assessment/Plan Current Medications Generic Name Dose Route Start Last Admin Trade Name Freq PRN Reason Stop Dose Admin Albuterol/Ipratropium 1 amp 10/08/17 10:54 10/08/17 14:10 Duoneb - NEB 1 amp Q6H PRN Administration SHORTNESS OF BREATH Calcium Carbonate/Cholecalciferol 1 tab 10/08/17 10:00 10/10/17 09:59 Os-Gera 500+D - PO 1 tab BID SAYRA Administration Carvedilol 3.125 mg 10/08/17 10:00 10/10/17 09:59 Coreg - PO 3.125 mg BID SAYRA Administration Cyanocobalamin 100 mcg 10/08/17 10:00 10/10/17 09:59 Vitamin B12 - PO 100 mcg DAILY SAYRA Administration Ferrous Sulfate 325 mg 10/08/17 08:00 10/10/17 08:18 Feosol - PO 325 mg BIDWM SAYRA Administration Folic Acid 1 mg 10/08/17 10:00 10/10/17 09:59 Folic Acid - PO 1 mg DAILY SAYRA Administration Furosemide 40 mg 10/09/17 06:00 10/10/17 13:47 Lasix Injection - IVPUSH 40 mg BID@0600,1400 SAYRA Administration Guaifenesin 10 ml 10/08/17 10:54 10/09/17 09:46 Diabetic Tussin Dm - PO 10 ml Q6H PRN Administration COUGH Lactulose 20 gm 10/07/17 22:15 10/10/17 09:58 Cephulac (Oral Use) PO 20 gm BID SAYRA Administration Loratadine 10 mg 10/08/17 10:00 10/10/17 09:59 Claritin - PO 10 mg DAILY SAYRA Administration Neomycin Sulfate 500 mg 10/08/17 10:00 10/10/17 09:59 Mycifradin - PO 500 mg BID SAYRA Administration Nystatin 1 applic 10/08/17 10:00 10/10/17 10:00 Nystop Powder - TP Not Given DAILY [facility] Spironolactone 50 mg 10/08/17 13:00 10/10/17 09:59 Aldactone - PO 50 mg BID SAYRA Administration Impression 1. CKD 2. fluid overload 3. liver cirrhosis 4. fatty liver 5. morbid obesity 6. pancytopenia 7. CHF 8. GERD 9. hyperlipidemia 10. microscopic hematuria Plan - will increase dose of aldacotone and lasix - repeat labs in am - creatinine has not changed - pt remains hypervolemic - GI input appreciated - likely ckd in part from hepatorenal disease - will follow Dr Reaves
[2017-10-11] MEDS: FUROSEMIDE 40 MG/4 ML INJECTABLE VIAL IVPUSH SCH ×3 (05:48→22:30)
[2017-10-11 06:47] LABS: HEMATOCRIT 24.6 % (35.4-49); HEMOGLOBIN 8.3 GM/dL (11.7-16.9); MCH 33.2 pg (25.7-33.7); MCHC 33.8 g/dl (32.0-35.9); MEAN CELL VOLUME 98.2 fl (80-96); MEAN PLT VOLUME 7.7 fl (7.5-11.1); PLATELET COUNT 50 K/MM3 (134-434); RBC 2.51 M/mm3 (4.00-5.60); RDW 19.7 % (11.9-15.9); WHITE BLOOD COUNT 2.8 K/mm3 (4.0-10.0)
[2017-10-11 07:09] LABS: ALBUMIN 1.4 g/dl (3.4-5.0); ANION GAP 5 (8-16); BLOOD UREA NITROGEN 35 mg/dL (7-18); CALCIUM 7.5 mg/dL (8.5-10.1); CHLORIDE 101 mmol/L (98-107); CO2 33 mmol/L (21-32); GLUCOSE,RANDOM 84 mg/dL (74-106); POTASSIUM 4.4 mmol/L (3.5-5.1); SODIUM 139 mmol/L (136-145)
[2017-10-11 07:13] LABS: ALK PHOS 111 U/L (45-117); BILIRUBIN,TOTAL 2.2 mg/dL (0.2-1.0); CREATININE 1.6 mg/dL (0.7-1.3); SGOT/AST 52 U/L (15-37); SGPT/ALT 22 U/L (12-78); TOT PROT 7.2 g/dl (6.4-8.2)
[2017-10-11] MEDS: FERROUS SO4 325 MG TABLET (FP) PO SCH ×2 (08:11→17:45)
[2017-10-11] MEDS: CARVEDILOL 3.125 MG TABLET (FP) PO SCH ×2 (09:44→22:30)
[2017-10-11] MEDS: CYANOCOBALAMIN (VITAMIN B-12) 100 MCG TABLET PO SCH (09:44)
[2017-10-11] MEDS: LACTULOSE 20 GM/30 ML UDC (FOR ORAL USE ONLY) PO SCH ×2 (09:44→22:21)
[2017-10-11] MEDS: CALCIUM 500MG/VIT-D 200 UNITS COMBO TABLET (FP) PO SCH ×2 (09:44→22:22)
[2017-10-11] MEDS: SPIRONOLACTONE 25 MG TABLET (FP) PO SCH ×2 (09:44→22:30)
[2017-10-11] MEDS: LORATADINE 10 MG TABLET PO SCH (09:44)
[2017-10-11] MEDS: FOLIC ACID 1 MG TABLET (FP) PO SCH (09:44)
[2017-10-11] MEDS: NEOMYCIN SO4 500 MG TABLET PO SCH ×2 (09:45→22:30)
[2017-10-11] MEDS: NYSTATIN POWDER 100,000 UNITS/GM - 15 GM TOPICAL POWDER TP SCH (09:51)
--- NOTE | 2017-10-11 11:27 | PN ---
Progress Note, Physician History of Present Illness: pulmonary alert,feeling better,less dyspneic - Current Medication List Current Medications: Active Medications Albuterol/Ipratropium (Duoneb -) 1 amp NEB Q6H PRN PRN Reason: SHORTNESS OF BREATH Last Admin: 10/08/17 14:10 Dose: 1 amp Calcium Carbonate/Cholecalciferol (Os-Gera 500+D -) 1 tab PO BID [facility] Last Admin: 10/11/17 09:44 Dose: 1 tab Carvedilol (Coreg -) 3.125 mg PO BID [facility] Last Admin: 10/11/17 09:44 Dose: 3.125 mg Cyanocobalamin (Vitamin B12 -) 100 mcg PO DAILY [facility] Last Admin: 10/11/17 09:44 Dose: 100 mcg Ferrous Sulfate (Feosol -) 325 mg PO BIDWM [facility] Last Admin: 10/11/17 08:11 Dose: 325 mg Folic Acid (Folic Acid -) 1 mg PO DAILY [facility] Last Admin: 10/11/17 09:44 Dose: 1 mg Furosemide (Lasix Injection -) 40 mg IVPUSH TID [facility] Last Admin: 10/11/17 05:48 Dose: 40 mg Guaifenesin (Diabetic Tussin Dm -) 10 ml PO Q6H PRN PRN Reason: COUGH Last Admin: 10/09/17 09:46 Dose: 10 ml Lactulose (Cephulac (Oral Use)) 20 gm PO BID [facility] Last Admin: 10/11/17 09:44 Dose: 20 gm Loratadine (Claritin -) 10 mg PO DAILY [facility] Last Admin: 10/11/17 09:44 Dose: 10 mg Neomycin Sulfate (Mycifradin -) 500 mg PO BID [facility] Last Admin: 10/11/17 09:45 Dose: 500 mg Nystatin (Nystop Powder -) 1 applic TP DAILY [facility] Last Admin: 10/11/17 09:51 Dose: Not Given Spironolactone (Aldactone -) 75 mg PO BID [facility] Last Admin: 10/11/17 09:44 Dose: 75 mg - Objective Vital Signs: Vital Signs Temperature 97.7 F 10/11/17 07:48 Pulse Rate 67 10/11/17 07:48 Respiratory Rate 16 10/11/17 07:50 Blood Pressure 101/50 10/11/17 07:48 O2 Sat by Pulse Oximetry (%) 96 02/05/18 07:50 Constitutional: Yes: Calm, Obese Eyes: Yes: WNL HENT: Yes: WNL Neck: Yes: WNL Cardiovascular: Yes: Regular Rate and Rhythm, S1, S2 Respiratory: Yes: Diminished Gastrointestinal: Yes: Normal Bowel Sounds, Abdomen, Obese Extremities: Yes: WNL Edema: Yes Labs: CBC, BMP 10/11/17 06:20 10/11/17 06:20 INR, PTT INR 2.04 (0.82-1.09) H 10/09/17 05:18 Problem List - Problems (1) Pancytopenia Code(s): D61.818 - OTHER PANCYTOPENIA (2) Anasarca Code(s): R60.1 - GENERALIZED EDEMA (3) Ascites Code(s): R18.8 - OTHER ASCITES (4) CKD (chronic kidney disease) Code(s): N18.9 - CHRONIC KIDNEY DISEASE, UNSPECIFIED Qualifiers: Chronic kidney disease stage: stage 3 (moderate) Qualified Code(s): N18.3 - Chronic kidney disease, stage 3 (moderate) (5) Fatty liver Code(s): K76.0 - FATTY (CHANGE OF) LIVER, NOT ELSEWHERE CLASSIFIED (6) Symptomatic anemia Code(s): D64.9 - ANEMIA, UNSPECIFIED (7) CHF (congestive heart failure) Code(s): I50.9 - HEART FAILURE, UNSPECIFIED Qualifiers: Congestive heart failure type: unspecified Congestive heart failure chronicity: acute on chronic Qualified Code(s): I50.9 - Heart failure, unspecified (8) HLD (hyperlipidemia) Code(s): E78.5 - HYPERLIPIDEMIA, UNSPECIFIED Qualifiers: Hyperlipidemia type: mixed hyperlipidemia Qualified Code(s): E78.2 - Mixed hyperlipidemia (9) HTN (hypertension) Code(s): I10 - ESSENTIAL (PRIMARY) HYPERTENSION Qualifiers: Hypertension type: essential hypertension Qualified Code(s): I10 - Essential (primary) hypertension (10) Thrombocytopenia Code(s): D69.6 - THROMBOCYTOPENIA, UNSPECIFIED (11) Dyspnea Code(s): R06.00 - DYSPNEA, UNSPECIFIED Assessment/Plan A/P Volume Overload Liver Cirrhosis Ascites r/o CHF CKD Morbid Obesity Likely CHARLES - continue IV lasix, aldactone - monitor urine output, creatinine - daily weights - O2 to keep SpO2 >90% - echocardiogram - outpt PFTs, PSG - DVT prophylaxis - Sleep screen DR ELISE
--- NOTE | 2017-10-11 14:14 | PN ---
Progress Note, Physician Chief Complaint: AWAKE ALERT MILD DISTRESS LEG EDEMA - Current Medication List Current Medications: Active Medications Albuterol/Ipratropium (Duoneb -) 1 amp NEB Q6H PRN PRN Reason: SHORTNESS OF BREATH Last Admin: 10/08/17 14:10 Dose: 1 amp Calcium Carbonate/Cholecalciferol (Os-Gera 500+D -) 1 tab PO BID [facility] Last Admin: 10/11/17 09:44 Dose: 1 tab Carvedilol (Coreg -) 3.125 mg PO BID [facility] Last Admin: 10/11/17 09:44 Dose: 3.125 mg Cyanocobalamin (Vitamin B12 -) 100 mcg PO DAILY [facility] Last Admin: 10/11/17 09:44 Dose: 100 mcg Ferrous Sulfate (Feosol -) 325 mg PO BIDWM [facility] Last Admin: 10/11/17 08:11 Dose: 325 mg Folic Acid (Folic Acid -) 1 mg PO DAILY [facility] Last Admin: 10/11/17 09:44 Dose: 1 mg Furosemide (Lasix Injection -) 40 mg IVPUSH TID [facility] Last Admin: 10/11/17 13:48 Dose: 40 mg Guaifenesin (Diabetic Tussin Dm -) 10 ml PO Q6H PRN PRN Reason: COUGH Last Admin: 10/09/17 09:46 Dose: 10 ml Lactulose (Cephulac (Oral Use)) 20 gm PO BID [facility] Last Admin: 10/11/17 09:44 Dose: 20 gm Loratadine (Claritin -) 10 mg PO DAILY [facility] Last Admin: 10/11/17 09:44 Dose: 10 mg Neomycin Sulfate (Mycifradin -) 500 mg PO BID [facility] Last Admin: 10/11/17 09:45 Dose: 500 mg Nystatin (Nystop Powder -) 1 applic TP DAILY [facility] Last Admin: 10/11/17 09:51 Dose: Not Given Spironolactone (Aldactone -) 75 mg PO BID [facility] Last Admin: 10/11/17 09:44 Dose: 75 mg - Objective Vital Signs: Vital Signs Temperature 97.7 F 10/11/17 07:48 Pulse Rate 67 10/11/17 07:48 Respiratory Rate 16 10/11/17 07:50 Blood Pressure 101/50 10/11/17 07:48 O2 Sat by Pulse Oximetry (%) 96 10/11/17 07:50 Constitutional: Yes: Mild Distress Eyes: Yes: WNL HENT: Yes: WNL Neck: Yes: WNL Respiratory: Yes: WNL Gastrointestinal: Yes: WNL Genitourinary: Yes: Whitten Present Musculoskeletal: Yes: Muscle Weakness Extremities: Yes: Deformity Edema: Yes Edema: LLE: 3+, RLE: 3+ Peripheral Pulses WNL: Yes Integumentary: Yes: WNL Wound/Incision: Yes: Clean/Dry Neurological: Yes: Pre-Existing Deficit ...Motor Strength: LLE, RLE Psychiatric: Yes: WNL Labs: CBC, BMP 10/11/17 06:20 10/11/17 06:20 INR, PTT INR 2.04 (0.82-1.09) H 10/09/17 05:18 Problem List - Problems (1) Anasarca Code(s): R60.1 - GENERALIZED EDEMA (2) Ascites Code(s): R18.8 - OTHER ASCITES (3) CKD (chronic kidney disease) Code(s): N18.9 - CHRONIC KIDNEY DISEASE, UNSPECIFIED Qualifiers: Chronic kidney disease stage: stage 3 (moderate) Qualified Code(s): N18.3 - Chronic kidney disease, stage 3 (moderate) (4) Fatty liver Code(s): K76.0 - FATTY (CHANGE OF) LIVER, NOT ELSEWHERE CLASSIFIED (5) Symptomatic anemia Code(s): D64.9 - ANEMIA, UNSPECIFIED (6) CHF (congestive heart failure) Code(s): I50.9 - HEART FAILURE, UNSPECIFIED Qualifiers: Congestive heart failure type: unspecified Congestive heart failure chronicity: acute on chronic Qualified Code(s): I50.9 - Heart failure, unspecified (7) DVT prophylaxis Code(s): [id number] - (8) HLD (hyperlipidemia) Code(s): E78.5 - HYPERLIPIDEMIA, UNSPECIFIED Qualifiers: Hyperlipidemia type: mixed hyperlipidemia Qualified Code(s): E78.2 - Mixed hyperlipidemia (9) HTN (hypertension) Code(s): I10 - ESSENTIAL (PRIMARY) HYPERTENSION Qualifiers: Hypertension type: essential hypertension Qualified Code(s): I10 - Essential (primary) hypertension (10) Thrombocytopenia Code(s): D69.6 - THROMBOCYTOPENIA, UNSPECIFIED Assessment/Plan URINE WHITTEN INSERTED 800CC URINE RELEASED PT EVAL HEPATORRENAL SYNDROME GI/RENAL WORKUP IN PROGRESS DC TELE MED SX DC PLANNING
--- NOTE | 2017-10-11 15:41 | PN ---
Progress Note, Physician History of Present Illness: Pt seen and examined at bedside. He is awake and alert. He feels that the edema is starting to improve. - Current Medication List Current Medications: Active Medications Albuterol/Ipratropium (Duoneb -) 1 amp NEB Q6H PRN PRN Reason: SHORTNESS OF BREATH Last Admin: 10/08/17 14:10 Dose: 1 amp Calcium Carbonate/Cholecalciferol (Os-Gera 500+D -) 1 tab PO BID [facility] Last Admin: 10/11/17 09:44 Dose: 1 tab Carvedilol (Coreg -) 3.125 mg PO BID [facility] Last Admin: 10/11/17 09:44 Dose: 3.125 mg Cyanocobalamin (Vitamin B12 -) 100 mcg PO DAILY [facility] Last Admin: 10/11/17 09:44 Dose: 100 mcg Ferrous Sulfate (Feosol -) 325 mg PO BIDWM [facility] Last Admin: 10/11/17 08:11 Dose: 325 mg Folic Acid (Folic Acid -) 1 mg PO DAILY [facility] Last Admin: 10/11/17 09:44 Dose: 1 mg Furosemide (Lasix Injection -) 40 mg IVPUSH TID [facility] Last Admin: 10/11/17 13:48 Dose: 40 mg Guaifenesin (Diabetic Tussin Dm -) 10 ml PO Q6H PRN PRN Reason: COUGH Last Admin: 10/09/17 09:46 Dose: 10 ml Lactulose (Cephulac (Oral Use)) 20 gm PO BID [facility] Last Admin: 10/11/17 09:44 Dose: 20 gm Loratadine (Claritin -) 10 mg PO DAILY [facility] Last Admin: 10/11/17 09:44 Dose: 10 mg Neomycin Sulfate (Mycifradin -) 500 mg PO BID [facility] Last Admin: 10/11/17 09:45 Dose: 500 mg Nystatin (Nystop Powder -) 1 applic TP DAILY [facility] Last Admin: 10/11/17 09:51 Dose: Not Given Spironolactone (Aldactone -) 75 mg PO BID [facility] Last Admin: 10/11/17 09:44 Dose: 75 mg - Objective Vital Signs: Vital Signs Temperature 98.2 F 10/11/17 14:00 Pulse Rate 73 10/11/17 14:00 Respiratory Rate 20 10/11/17 14:00 Blood Pressure 121/54 10/11/17 14:00 O2 Sat by Pulse Oximetry (%) 96 10/11/17 07:50 Constitutional: Yes: Calm Eyes: Yes: Conjunctiva Clear HENT: Yes: Atraumatic Cardiovascular: Yes: S1, S2 Respiratory: Yes: CTA Bilaterally Gastrointestinal: Yes: Soft, Abdomen, Obese, Ascites Genitourinary: Yes: Haq Present Edema: Yes Edema: LLE: 2+, RLE: 2+ Neurological: Yes: Oriented Psychiatric: Yes: Oriented Labs: CBC, BMP 10/11/17 06:20 10/11/17 06:20 INR, PTT INR 2.04 (0.82-1.09) H 10/09/17 05:18 Problem List - Problems (1) Anasarca Code(s): R60.1 - GENERALIZED EDEMA (2) Ascites Code(s): R18.8 - OTHER ASCITES (3) CKD (chronic kidney disease) Code(s): N18.9 - CHRONIC KIDNEY DISEASE, UNSPECIFIED Qualifiers: Chronic kidney disease stage: stage 3 (moderate) Qualified Code(s): N18.3 - Chronic kidney disease, stage 3 (moderate) (4) Fatty liver Code(s): K76.0 - FATTY (CHANGE OF) LIVER, NOT ELSEWHERE CLASSIFIED (5) 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 Code(s): K75.81 - NONALCOHOLIC STEATOHEPATITIS (NIETO); K74.60 - UNSPECIFIED CIRRHOSIS OF LIVER (6) Pancytopenia Code(s): D61.818 - OTHER PANCYTOPENIA (7) CHF (congestive heart failure) Code(s): I50.9 - HEART FAILURE, UNSPECIFIED Qualifiers: Congestive heart failure type: unspecified Congestive heart failure chronicity: acute on chronic Qualified Code(s): I50.9 - Heart failure, unspecified Assessment/Plan Current Medications Generic Name Dose Route Start Last Admin Trade Name Freq PRN Reason Stop Dose Admin Albuterol/Ipratropium 1 amp 10/08/17 10:54 10/08/17 14:10 Duoneb - NEB 1 amp Q6H PRN Administration SHORTNESS OF BREATH Calcium Carbonate/Cholecalciferol 1 tab 10/08/17 10:00 10/11/17 09:44 Os-Gera 500+D - PO 1 tab BID [facility] Administration Carvedilol 3.125 mg 10/08/17 10:00 10/11/17 09:44 Coreg - PO 3.125 mg BID [facility] Administration Cyanocobalamin 100 mcg 10/08/17 10:00 10/11/17 09:44 Vitamin B12 - PO 100 mcg DAILY [facility] Administration Ferrous Sulfate 325 mg 10/08/17 08:00 10/11/17 08:11 Feosol - PO 325 mg BIDWM [facility] Administration Folic Acid 1 mg 10/08/17 10:00 10/11/17 09:44 Folic Acid - PO 1 mg DAILY [facility] Administration Furosemide 40 mg 10/10/17 22:00 10/11/17 13:48 Lasix Injection - IVPUSH 40 mg TID [facility] Administration Guaifenesin 10 ml 10/08/17 10:54 10/09/17 09:46 Diabetic Tussin Dm - PO 10 ml Q6H PRN Administration COUGH Lactulose 20 gm 10/07/17 22:15 10/11/17 09:44 Cephulac (Oral Use) PO 20 gm BID [facility] Administration Loratadine 10 mg 10/08/17 10:00 10/11/17 09:44 Claritin - PO 10 mg DAILY [facility] Administration Neomycin Sulfate 500 mg 10/08/17 10:00 10/11/17 09:45 Mycifradin - PO 500 mg BID [facility] Administration Nystatin 1 applic 10/08/17 10:00 10/11/17 09:51 Nystop Powder - TP Not Given DAILY [facility] Spironolactone 75 mg 10/10/17 22:00 10/11/17 09:44 Aldactone - PO 75 mg BID [facility] Administration Impression 1. CKD 2. fluid overload 3. liver cirrhosis 4. fatty liver 5. morbid obesity 6. pancytopenia 7. CHF 8. GERD 9. hyperlipidemia 10. microscopic hematuria Plan - cont lasix and aldactone - will increase aldactone to 100 bid tomorrow if renal function stable - monitor urine output - edema is starting to improve - pt remains hypervolemic - GI input appreciated - likely ckd in part from hepatorenal disease - will follow Dr Reaves
[2017-10-12] MEDS: FUROSEMIDE 40 MG/4 ML INJECTABLE VIAL IVPUSH SCH ×4 (06:41→15:57)
--- NOTE | 2017-10-12 08:53 | PN ---
Progress Note, Physician History of Present Illness: FEELS BETTER LESS SWELLING - Current Medication List Current Medications: Active Medications Albuterol/Ipratropium (Duoneb -) 1 amp NEB Q6H PRN PRN Reason: SHORTNESS OF BREATH Last Admin: 10/08/17 14:10 Dose: 1 amp Calcium Carbonate/Cholecalciferol (Os-Gera 500+D -) 1 tab PO BID [facility] Last Admin: 10/11/17 22:22 Dose: 1 tab Carvedilol (Coreg -) 3.125 mg PO BID [facility] Last Admin: 10/11/17 22:30 Dose: Not Given Cyanocobalamin (Vitamin B12 -) 100 mcg PO DAILY [facility] Last Admin: 10/11/17 09:44 Dose: 100 mcg Ferrous Sulfate (Feosol -) 325 mg PO BIDWM [facility] Last Admin: 10/11/17 17:45 Dose: 325 mg Folic Acid (Folic Acid -) 1 mg PO DAILY [facility] Last Admin: 10/11/17 09:44 Dose: 1 mg Furosemide (Lasix Injection -) 40 mg IVPUSH TID [facility] Last Admin: 10/12/17 08:15 Dose: 40 mg Guaifenesin (Diabetic Tussin Dm -) 10 ml PO Q6H PRN PRN Reason: COUGH Last Admin: 10/09/17 09:46 Dose: 10 ml Lactulose (Cephulac (Oral Use)) 20 gm PO BID [facility] Last Admin: 10/11/17 22:21 Dose: 20 gm Loratadine (Claritin -) 10 mg PO DAILY [facility] Last Admin: 10/11/17 09:44 Dose: 10 mg Neomycin Sulfate (Mycifradin -) 500 mg PO BID [facility] Last Admin: 10/11/17 22:30 Dose: 500 mg Nystatin (Nystop Powder -) 1 applic TP DAILY [facility] Last Admin: 10/11/17 09:51 Dose: Not Given Spironolactone (Aldactone -) 75 mg PO BID [facility] Last Admin: 10/11/17 22:30 Dose: Not Given - Objective Vital Signs: Vital Signs Temperature 98 F 10/12/17 06:00 Pulse Rate 65 10/12/17 08:15 Respiratory Rate 22 10/12/17 08:15 Blood Pressure 103/60 10/12/17 08:15 O2 Sat by Pulse Oximetry (%) 96 10/11/17 21:00 Cardiovascular: Yes: Regular Rate and Rhythm Respiratory: Yes: Regular, CTA Bilaterally Gastrointestinal: Yes: Normal Bowel Sounds, Soft, Ascites, Distention. 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
--- NOTE | 2017-10-12 09:37 | PN ---
Progress Note, Physician History of Present Illness: In good spirit this am. No events. Able to finish all his meals, no sob while supine. - Current Medication List Current Medications: Active Medications Albuterol/Ipratropium (Duoneb -) 1 amp NEB Q6H PRN PRN Reason: SHORTNESS OF BREATH Last Admin: 10/08/17 14:10 Dose: 1 amp Calcium Carbonate/Cholecalciferol (Os-Gera 500+D -) 1 tab PO BID [facility] Last Admin: 10/11/17 22:22 Dose: 1 tab Carvedilol (Coreg -) 3.125 mg PO BID [facility] Last Admin: 10/11/17 22:30 Dose: Not Given Cyanocobalamin (Vitamin B12 -) 100 mcg PO DAILY [facility] Last Admin: 10/11/17 09:44 Dose: 100 mcg Ferrous Sulfate (Feosol -) 325 mg PO BIDWM [facility] Last Admin: 10/11/17 17:45 Dose: 325 mg Folic Acid (Folic Acid -) 1 mg PO DAILY [facility] Last Admin: 10/11/17 09:44 Dose: 1 mg Furosemide (Lasix Injection -) 40 mg IVPUSH TID [facility] Last Admin: 10/12/17 08:15 Dose: 40 mg Guaifenesin (Diabetic Tussin Dm -) 10 ml PO Q6H PRN PRN Reason: COUGH Last Admin: 10/09/17 09:46 Dose: 10 ml Lactulose (Cephulac (Oral Use)) 20 gm PO BID [facility] Last Admin: 10/11/17 22:21 Dose: 20 gm Loratadine (Claritin -) 10 mg PO DAILY [facility] Last Admin: 10/11/17 09:44 Dose: 10 mg Neomycin Sulfate (Mycifradin -) 500 mg PO BID [facility] Last Admin: 10/11/17 22:30 Dose: 500 mg Nystatin (Nystop Powder -) 1 applic TP DAILY [facility] Last Admin: 10/11/17 09:51 Dose: Not Given Spironolactone (Aldactone -) 75 mg PO BID [facility] Last Admin: 10/11/17 22:30 Dose: Not Given - Objective Vital Signs: Vital Signs Temperature 98 F 10/12/17 06:00 Pulse Rate 65 10/12/17 08:15 Respiratory Rate 22 10/12/17 08:15 Blood Pressure 103/60 10/12/17 08:15 O2 Sat by Pulse Oximetry (%) 96 10/11/17 21:00 Constitutional: Yes: No Distress, Calm Eyes: Yes: Conjunctiva Clear Gastrointestinal: Yes: Soft, Abdomen, Obese. No: Tenderness Neurological: Yes: Alert, Oriented. No: Confusion, Lethargy, Tremors Labs: CBC, BMP 10/11/17 06:20 10/11/17 06:20 INR, PTT INR 2.04 (0.82-1.09) H 10/09/17 05:18 CBCD WBC 2.8 K/mm3 (4.0-10.0) L 10/11/17 06:20 RBC 2.51 M/mm3 (4.00-5.60) L 10/11/17 06:20 Hgb 8.3 GM/dL (11.7-16.9) L 10/11/17 06:20 Hct 24.6 % (35.4-49) L 10/11/17 06:20 MCV 98.2 fl (80-96) H 10/11/17 06:20 MCHC 33.8 g/dl (32.0-35.9) 10/11/17 06:20 RDW 19.7 % (11.9-15.9) H 10/11/17 06:20 Plt Count 50 K/MM3 (134-434) L 10/11/17 06:20 MPV 7.7 fl (7.5-11.1) 10/11/17 06:20 CMP Sodium 139 mmol/L (136-145) 10/11/17 06:20 Potassium 4.4 mmol/L (3.5-5.1) 10/11/17 06:20 Chloride 101 mmol/L (98-107) 10/11/17 06:20 Carbon Dioxide 33 mmol/L (21-32) H 10/11/17 06:20 Anion Gap 5 (8-16) L 10/11/17 06:20 BUN 35 mg/dL (7-18) H 10/11/17 06:20 Creatinine 1.6 mg/dL (0.7-1.3) H 10/11/17 06:20 Creat Clearance w eGFR 44.46 (>60) 10/11/17 06:20 Calcium 7.5 mg/dL (8.5-10.1) L 10/11/17 06:20 Total Bilirubin 2.2 mg/dL (0.2-1.0) H 10/11/17 06:20 AST 52 U/L (15-37) H 10/11/17 06:20 ALT 22 U/L (12-78) 10/11/17 06:20 Alkaline Phosphatase 111 U/L (45-117) 10/11/17 06:20 Total Protein 7.2 g/dl (6.4-8.2) 10/11/17 06:20 Albumin 1.4 g/dl (3.4-5.0) L 10/11/17 06:20 Problem List - Problems (1) 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 Code(s): K75.81 - NONALCOHOLIC STEATOHEPATITIS (NIETO); K74.60 - UNSPECIFIED CIRRHOSIS OF LIVER (2) CKD (chronic kidney disease) Code(s): N18.9 - CHRONIC KIDNEY DISEASE, UNSPECIFIED Qualifiers: Chronic kidney disease stage: stage 3 (moderate) Qualified Code(s): N18.3 - Chronic kidney disease, stage 3 (moderate) Assessment/Plan Ascites, however no orthopnea, early satiety, or tens abdomen on exam lasix, aldactone, lactulose, neomycin 2 gm salt diet If cannot titrate diuretics up due to renal insufficiency, or electrolytes abnormalities, a therapeutic paracentesis can be considered if tens ascites, early satiety, or orthopnea present. Discussed with the patient
[2017-10-12 09:41] LABS: BASO % 0.6 % (0-2.0); EOS % 6.5 % (0-4.5); HEMOGLOBIN 8.8 GM/dL (11.7-16.9); LYMPH % 18.5 % (8-40); MCH 32.3 pg (25.7-33.7); MCHC 32.6 g/dl (32.0-35.9); MEAN CELL VOLUME 99.1 fl (80-96); MEAN PLT VOLUME 7.1 fl (7.5-11.1); MONO % 9.7 % (3.8-10.2); NEUT % 64.7 % (42.8-82.8); PLATELET COUNT 51 K/MM3 (134-434); RBC 2.73 M/mm3 (4.00-5.60); RDW 19.4 % (11.9-15.9); WHITE BLOOD COUNT 2.8 K/mm3 (4.0-10.0)
[2017-10-12] MEDS: CARVEDILOL 3.125 MG TABLET (FP) PO SCH ×2 (10:16→22:01)
[2017-10-12] MEDS: LORATADINE 10 MG TABLET PO SCH (10:16)
[2017-10-12] MEDS: SPIRONOLACTONE 25 MG TABLET (FP) PO SCH ×2 (10:16→22:01)
[2017-10-12] MEDS: FERROUS SO4 325 MG TABLET (FP) PO SCH ×2 (10:16→17:18)
[2017-10-12] MEDS: NEOMYCIN SO4 500 MG TABLET PO SCH ×2 (10:16→22:07)
[2017-10-12] MEDS: LACTULOSE 20 GM/30 ML UDC (FOR ORAL USE ONLY) PO SCH ×2 (10:16→22:01)
[2017-10-12] MEDS: CALCIUM 500MG/VIT-D 200 UNITS COMBO TABLET (FP) PO SCH ×2 (10:16→22:01)
[2017-10-12] MEDS: NYSTATIN POWDER 100,000 UNITS/GM - 15 GM TOPICAL POWDER TP SCH (10:16)
[2017-10-12] MEDS: CYANOCOBALAMIN (VITAMIN B-12) 100 MCG TABLET PO SCH (10:16)
[2017-10-12] MEDS: FOLIC ACID 1 MG TABLET (FP) PO SCH (10:16)
[2017-10-12 10:21] LABS: ALBUMIN 1.4 g/dl (3.4-5.0); ANION GAP 5 (8-16); BILIRUBIN,TOTAL 2.5 mg/dL (0.2-1.0); BLOOD UREA NITROGEN 32 mg/dL (7-18); CALCIUM 7.4 mg/dL (8.5-10.1); CHLORIDE 99 mmol/L (98-107); CO2 35 mmol/L (21-32); CREATININE 1.7 mg/dL (0.7-1.3); GLUCOSE,RANDOM 124 mg/dL (74-106); POTASSIUM 4.1 mmol/L (3.5-5.1); SGOT/AST 53 U/L (15-37); SGPT/ALT 21 U/L (12-78); SODIUM 139 mmol/L (136-145); TOT PROT 7.3 g/dl (6.4-8.2)
[2017-10-12 10:22] LABS: ALK PHOS 106 U/L (45-117)
--- NOTE | 2017-10-12 11:38 | PN ---
Progress Note (short form) - Note Progress Note: Patient seen and examined Feels well. denies any bleeding Cor: RSR, No murmurs, No gallops Lungs: Clear to P&A Abd: +ascites Ext: bilateral 2+ edema. chronic skin changes on the left Last Vital Signs Temp Pulse Resp BP Pulse Ox 98 F 65 22 103/60 96 10/12/17 06:00 10/12/17 08:15 10/12/17 08:15 10/12/17 08:15 10/11/17 21:00 CBC, BMP 10/12/17 09:30 10/12/17 09:30 Current Medications Generic Name Dose Route Start Last Admin Trade Name Freq PRN Reason Stop Dose Admin Albuterol/Ipratropium 1 amp 10/08/17 10:54 10/08/17 14:10 Duoneb - NEB 1 amp Q6H PRN Administration SHORTNESS OF BREATH Calcium Carbonate/Cholecalciferol 1 tab 10/08/17 10:00 10/12/17 10:16 Os-Gera 500+D - PO 1 tab BID [facility] Administration Carvedilol 3.125 mg 10/08/17 10:00 10/12/17 10:16 Coreg - PO 3.125 mg BID [facility] Administration Cyanocobalamin 100 mcg 10/08/17 10:00 10/12/17 10:16 Vitamin B12 - PO 100 mcg DAILY [facility] Administration Ferrous Sulfate 325 mg 10/08/17 08:00 10/12/17 10:16 Feosol - PO 325 mg BIDWM [facility] Administration Folic Acid 1 mg 10/08/17 10:00 10/12/17 10:16 Folic Acid - PO 1 mg DAILY [facility] Administration Furosemide 40 mg 10/10/17 22:00 10/12/17 08:15 Lasix Injection - IVPUSH 40 mg TID [facility] Administration Guaifenesin 10 ml 10/08/17 10:54 10/09/17 09:46 Diabetic Tussin Dm - PO 10 ml Q6H PRN Administration COUGH Lactulose 20 gm 10/07/17 22:15 10/12/17 10:16 Cephulac (Oral Use) PO 20 gm BID [facility] Administration Loratadine 10 mg 10/08/17 10:00 10/12/17 10:16 Claritin - PO 10 mg DAILY [facility] Administration Neomycin Sulfate 500 mg 10/08/17 10:00 10/12/17 10:16 Mycifradin - PO 500 mg BID [facility] Administration Nystatin 1 applic 10/08/17 10:00 10/12/17 10:16 Nystop Powder - TP 1 applic DAILY [facility] Administration Spironolactone 75 mg 10/10/17 22:00 10/12/17 10:16 Aldactone - PO 75 mg BID [facility] Administration 57 y/o patient with Non-alcoholic liver cirrhosis Pancytopenia/coagulopathy related to liver disease Hepato-renal syndrome GI f.u appreciated. 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
--- NOTE | 2017-10-12 12:33 | PN ---
Progress Note (short form) - Note Progress Note: PULMONARY Denies shortness of breath or chest pain. Still diuresing well. Last Vital Signs Temp Pulse Resp BP Pulse Ox 98 F 65 22 103/60 96 10/12/17 06:00 10/12/17 08:15 10/12/17 08:15 10/12/17 08:15 10/11/17 21:00 Intake & Output 10/09/17 10/10/17 10/11/17 10/12/17 23:59 23:59 23:59 23:59 Intake Total 1040 430 240 240 Output Total 4025 1000 3675 900 Balance -2985 -570 -3435 -660 Weight 139.57 kg Gen: NAD at rest Heart: RRR Lung: decreased breath sounds at the bases Abd: soft, nontender Ext: + edema CBC, BMP 10/12/17 09:30 10/12/17 09:30 Active Medications Albuterol/Ipratropium (Duoneb -) 1 amp NEB Q6H PRN PRN Reason: SHORTNESS OF BREATH Last Admin: 10/08/17 14:10 Dose: 1 amp Calcium Carbonate/Cholecalciferol (Os-Gera 500+D -) 1 tab PO BID [facility] Last Admin: 10/12/17 10:16 Dose: 1 tab Carvedilol (Coreg -) 3.125 mg PO BID [facility] Last Admin: 10/12/17 10:16 Dose: 3.125 mg Cyanocobalamin (Vitamin B12 -) 100 mcg PO DAILY [facility] Last Admin: 10/12/17 10:16 Dose: 100 mcg Ferrous Sulfate (Feosol -) 325 mg PO BIDWM [facility] Last Admin: 10/12/17 10:16 Dose: 325 mg Folic Acid (Folic Acid -) 1 mg PO DAILY [facility] Last Admin: 10/12/17 10:16 Dose: 1 mg Furosemide (Lasix Injection -) 40 mg IVPUSH TID [facility] Last Admin: 10/12/17 08:15 Dose: 40 mg Guaifenesin (Diabetic Tussin Dm -) 10 ml PO Q6H PRN PRN Reason: COUGH Last Admin: 10/09/17 09:46 Dose: 10 ml Lactulose (Cephulac (Oral Use)) 20 gm PO BID [facility] Last Admin: 10/12/17 10:16 Dose: 20 gm Loratadine (Claritin -) 10 mg PO DAILY [facility] Last Admin: 10/12/17 10:16 Dose: 10 mg Neomycin Sulfate (Mycifradin -) 500 mg PO BID [facility] Last Admin: 10/12/17 10:16 Dose: 500 mg Nystatin (Nystop Powder -) 1 applic TP DAILY [facility] Last Admin: 10/12/17 10:16 Dose: 1 applic Spironolactone (Aldactone -) 75 mg PO BID [facility] Last Admin: 10/12/17 10:16 Dose: 75 mg A/P Volume Overload Liver Cirrhosis Ascites r/o CHF CKD Morbid Obesity Likely CHARLES - IV lasix, aldactone - monitor urine output, creatinine - daily weights - O2 to keep SpO2 >90% - echocardiogram - outpt PFTs, PSG - DVT prophylaxis
--- NOTE | 2017-10-12 15:27 | PN ---
Progress Note, Physician History of Present Illness: Pt seen and examined at bedside. He is awake and alert. He denies shortness of breath. - Current Medication List Current Medications: Active Medications Albuterol/Ipratropium (Duoneb -) 1 amp NEB Q6H PRN PRN Reason: SHORTNESS OF BREATH Last Admin: 10/08/17 14:10 Dose: 1 amp Calcium Carbonate/Cholecalciferol (Os-Gera 500+D -) 1 tab PO BID [facility] Last Admin: 10/12/17 10:16 Dose: 1 tab Carvedilol (Coreg -) 3.125 mg PO BID [facility] Last Admin: 10/12/17 10:16 Dose: 3.125 mg Cyanocobalamin (Vitamin B12 -) 100 mcg PO DAILY [facility] Last Admin: 10/12/17 10:16 Dose: 100 mcg Ferrous Sulfate (Feosol -) 325 mg PO BIDWM [facility] Last Admin: 10/12/17 10:16 Dose: 325 mg Folic Acid (Folic Acid -) 1 mg PO DAILY [facility] Last Admin: 10/12/17 10:16 Dose: 1 mg Furosemide (Lasix Injection -) 40 mg IVPUSH TID [facility] Last Admin: 10/12/17 08:15 Dose: 40 mg Guaifenesin (Diabetic Tussin Dm -) 10 ml PO Q6H PRN PRN Reason: COUGH Last Admin: 10/09/17 09:46 Dose: 10 ml Lactulose (Cephulac (Oral Use)) 20 gm PO BID [facility] Last Admin: 10/12/17 10:16 Dose: 20 gm Loratadine (Claritin -) 10 mg PO DAILY [facility] Last Admin: 10/12/17 10:16 Dose: 10 mg Neomycin Sulfate (Mycifradin -) 500 mg PO BID [facility] Last Admin: 10/12/17 10:16 Dose: 500 mg Nystatin (Nystop Powder -) 1 applic TP DAILY [facility] Last Admin: 10/12/17 10:16 Dose: 1 applic Spironolactone (Aldactone -) 75 mg PO BID [facility] Last Admin: 10/12/17 10:16 Dose: 75 mg - Objective Vital Signs: Vital Signs Temperature 98 F 10/12/17 06:00 Pulse Rate 65 10/12/17 08:15 Respiratory Rate 20 10/12/17 10:00 Blood Pressure 103/60 10/12/17 08:15 O2 Sat by Pulse Oximetry (%) 94 L 10/12/17 10:00 Constitutional: Yes: Calm Eyes: Yes: Conjunctiva Clear HENT: Yes: Atraumatic Cardiovascular: Yes: S1, S2 Respiratory: Yes: CTA Bilaterally Gastrointestinal: Yes: Soft, Abdomen, Obese, Ascites Genitourinary: Yes: Haq Present Edema: Yes Edema: LLE: 2+, RLE: 2+ Integumentary: Yes: Venous Stasis Changes Neurological: Yes: Oriented Psychiatric: Yes: Oriented Labs: CBC, BMP 10/12/17 09:30 10/12/17 09:30 INR, PTT INR 2.04 (0.82-1.09) H 10/09/17 05:18 Problem List - Problems (1) Anasarca Code(s): R60.1 - GENERALIZED EDEMA (2) Ascites Code(s): R18.8 - OTHER ASCITES (3) CKD (chronic kidney disease) Code(s): N18.9 - CHRONIC KIDNEY DISEASE, UNSPECIFIED Qualifiers: Chronic kidney disease stage: stage 3 (moderate) Qualified Code(s): N18.3 - Chronic kidney disease, stage 3 (moderate) (4) Fatty liver Code(s): K76.0 - FATTY (CHANGE OF) LIVER, NOT ELSEWHERE CLASSIFIED (5) 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 Code(s): K75.81 - NONALCOHOLIC STEATOHEPATITIS (NIETO); K74.60 - UNSPECIFIED CIRRHOSIS OF LIVER (6) Pancytopenia Code(s): D61.818 - OTHER PANCYTOPENIA (7) CHF (congestive heart failure) Code(s): I50.9 - HEART FAILURE, UNSPECIFIED Qualifiers: Congestive heart failure type: unspecified Congestive heart failure chronicity: acute on chronic Qualified Code(s): I50.9 - Heart failure, unspecified Assessment/Plan Current Medications Generic Name Dose Route Start Last Admin Trade Name Freq PRN Reason Stop Dose Admin Albuterol/Ipratropium 1 amp 10/08/17 10:54 10/08/17 14:10 Duoneb - NEB 1 amp Q6H PRN Administration SHORTNESS OF BREATH Calcium Carbonate/Cholecalciferol 1 tab 10/08/17 10:00 10/12/17 10:16 Os-Gera 500+D - PO 1 tab BID SAYRA Administration Carvedilol 3.125 mg 10/08/17 10:00 10/12/17 10:16 Coreg - PO 3.125 mg BID SAYRA Administration Cyanocobalamin 100 mcg 10/08/17 10:00 10/12/17 10:16 Vitamin B12 - PO 100 mcg DAILY SAYRA Administration Ferrous Sulfate 325 mg 10/08/17 08:00 10/12/17 10:16 Feosol - PO 325 mg BIDWM SAYRA Administration Folic Acid 1 mg 10/08/17 10:00 10/12/17 10:16 Folic Acid - PO 1 mg DAILY SAYRA Administration Furosemide 40 mg 10/10/17 22:00 10/12/17 08:15 Lasix Injection - IVPUSH 40 mg TID SAYRA Administration Guaifenesin 10 ml 10/08/17 10:54 10/09/17 09:46 Diabetic Tussin Dm - PO 10 ml Q6H PRN Administration COUGH Lactulose 20 gm 10/07/17 22:15 10/12/17 10:16 Cephulac (Oral Use) PO 20 gm BID SAYRA Administration Loratadine 10 mg 10/08/17 10:00 10/12/17 10:16 Claritin - PO 10 mg DAILY [facility]RA Administration Neomycin Sulfate 500 mg 10/08/17 10:00 10/12/17 10:16 Mycifradin - PO 500 mg BID SAYRA Administration Nystatin 1 applic 10/08/17 10:00 10/12/17 10:16 Nystop Powder - TP 1 applic DAILY [facility]RA Administration Spironolactone 75 mg 10/10/17 22:00 10/12/17 10:16 Aldactone - PO 75 mg BID SAYRA Administration Impression 1. CKD 2. fluid overload 3. liver cirrhosis 4. fatty liver 5. morbid obesity 6. pancytopenia 7. CHF 8. GERD 9. hyperlipidemia 10. microscopic hematuria Plan - cont lasix and aldactone - change lasix to BID - repeat labs in am - would like to increase dose of aldactone, will re-evaluate tomorrow - monitor urine output - edema is starting to improve - pt remains hypervolemic - likely ckd in part from hepatorenal disease - will follow Dr Reaves
[2017-10-12] MEDS ORDERED: FUROSEMIDE 40 MG/4 ML INJECTABLE VIAL IVPUSH SCH (22:00)
[2017-10-12] MEDS: guaiFENesin/D-METHORPHAN HB 10 ML UNIT-DOSE CUPS PO PRN (22:55)
[2017-10-13] MEDS: FUROSEMIDE 40 MG/4 ML INJECTABLE VIAL IVPUSH SCH ×2 (06:46→15:00)
[2017-10-13 08:23] LABS: INR 2.08 (0.82-1.09); PROTHROMBIN TIME (PATIENT) 23.5 SEC (9.98-11.88)
[2017-10-13 08:25] LABS: ACTIVATED PTT 42.8 SECONDS (26.9-34.4)
[2017-10-13 08:27] LABS: BASO % 0.4 % (0-2.0); EOS % 5.9 % (0-4.5); HEMATOCRIT 24.6 % (35.4-49); HEMOGLOBIN 8.3 GM/dL (11.7-16.9); LYMPH % 19.3 % (8-40); MCH 32.6 pg (25.7-33.7); MCHC 33.7 g/dl (32.0-35.9); MEAN CELL VOLUME 96.8 fl (80-96); MEAN PLT VOLUME 7.3 fl (7.5-11.1); MONO % 10.7 % (3.8-10.2); NEUT % 63.7 % (42.8-82.8); PLATELET COUNT 48 K/MM3 (134-434); RBC 2.54 M/mm3 (4.00-5.60); RDW 18.5 % (11.9-15.9); WHITE BLOOD COUNT 2.8 K/mm3 (4.0-10.0)
[2017-10-13 08:45] LABS: CHLORIDE 99 mmol/L (98-107); POTASSIUM 4.6 mmol/L (3.5-5.1); SODIUM 138 mmol/L (136-145)
[2017-10-13 08:57] LABS: ALBUMIN 1.3 g/dl (3.4-5.0); ALK PHOS 100 U/L (45-117); ANION GAP 6 (8-16); BILIRUBIN,TOTAL 2.3 mg/dL (0.2-1.0); BLOOD UREA NITROGEN 35 mg/dL (7-18); CALCIUM 7.6 mg/dL (8.5-10.1); CO2 33 mmol/L (21-32); CREATININE 1.7 mg/dL (0.7-1.3); GLUCOSE,RANDOM 81 mg/dL (74-106); SGOT/AST 53 U/L (15-37); SGPT/ALT 20 U/L (12-78); TOT PROT 7.1 g/dl (6.4-8.2)
[2017-10-13] MEDS: CYANOCOBALAMIN (VITAMIN B-12) 100 MCG TABLET PO SCH (10:36)
[2017-10-13] MEDS: SPIRONOLACTONE 25 MG TABLET (FP) PO SCH ×2 (10:37→22:02)
[2017-10-13] MEDS: CARVEDILOL 3.125 MG TABLET (FP) PO SCH ×2 (10:37→22:02)
[2017-10-13] MEDS: LORATADINE 10 MG TABLET PO SCH (10:37)
[2017-10-13] MEDS: FOLIC ACID 1 MG TABLET (FP) PO SCH (10:37)
[2017-10-13] MEDS: FERROUS SO4 325 MG TABLET (FP) PO SCH ×2 (10:37→17:25)
[2017-10-13] MEDS: NEOMYCIN SO4 500 MG TABLET PO SCH ×2 (10:38→22:02)
[2017-10-13] MEDS: CALCIUM 500MG/VIT-D 200 UNITS COMBO TABLET (FP) PO SCH ×2 (10:38→22:01)
[2017-10-13] MEDS: LACTULOSE 20 GM/30 ML UDC (FOR ORAL USE ONLY) PO SCH ×2 (10:38→22:02)
[2017-10-13] MEDS: NYSTATIN POWDER 100,000 UNITS/GM - 15 GM TOPICAL POWDER TP SCH (10:43)
--- NOTE | 2017-10-13 11:29 | PN ---
Progress Note, Physician Chief Complaint: Liver cirrhosis Ascitis History of Present Illness: NAD, edema improved seen by nephrology, GI and Pulmonary misses his dog that - Current Medication List Current Medications: Active Medications Calcium Carbonate/Cholecalciferol (Os-Gera 500+D -) 1 tab PO BID [facility] Last Admin: 10/13/17 10:38 Dose: 1 tab Carvedilol (Coreg -) 3.125 mg PO BID [facility] Last Admin: 10/13/17 10:37 Dose: 3.125 mg Cyanocobalamin (Vitamin B12 -) 100 mcg PO DAILY [facility] Last Admin: 10/13/17 10:36 Dose: 100 mcg Ferrous Sulfate (Feosol -) 325 mg PO BIDWM [facility] Last Admin: 10/13/17 10:37 Dose: 325 mg Folic Acid (Folic Acid -) 1 mg PO DAILY [facility] Last Admin: 10/13/17 10:37 Dose: 1 mg Furosemide (Lasix Injection -) 40 mg IVPUSH BID@0600,1400 [facility] Last Admin: 10/13/17 06:46 Dose: 40 mg Guaifenesin (Robitussin Dm -) 10 ml PO Q6H PRN PRN Reason: COUGH Last Admin: 10/12/17 22:55 Dose: 10 ml Lactulose (Cephulac (Oral Use)) 20 gm PO BID [facility] Last Admin: 10/13/17 10:38 Dose: 20 gm Loratadine (Claritin -) 10 mg PO DAILY [facility] Last Admin: 10/13/17 10:37 Dose: 10 mg Neomycin Sulfate (Mycifradin -) 500 mg PO BID [facility] Last Admin: 10/13/17 10:38 Dose: 500 mg Nystatin (Nystop Powder -) 1 applic TP DAILY [facility] Last Admin: 10/13/17 10:43 Dose: 1 applic Spironolactone (Aldactone -) 75 mg PO BID [facility] Last Admin: 10/13/17 10:37 Dose: 75 mg - Objective Vital Signs: Vital Signs Temperature 99.3 F 10/13/17 05:51 Pulse Rate 76 10/13/17 05:51 Respiratory Rate 20 10/13/17 05:51 Blood Pressure 103/57 10/13/17 05:51 O2 Sat by Pulse Oximetry (%) 94 L 10/12/17 21:00 Constitutional: Yes: Well Nourished, No Distress, Calm Cardiovascular: Yes: Regular Rate and Rhythm, Murmur (grade III/) Respiratory: Yes: Regular Gastrointestinal: Yes: Normal Bowel Sounds, Abdomen, Obese, Ascites Genitourinary: Yes: Chan Present Musculoskeletal: Yes: Muscle Weakness Edema: Yes Edema: LLE: 3+, RLE: 3+ Peripheral Pulses WNL: Yes Neurological: Yes: Alert, Oriented Psychiatric: Yes: Alert, Oriented Labs: CBC, BMP 10/13/17 06:35 10/13/17 06:35 INR, PTT INR 2.08 (0.82-1.09) H 10/13/17 06:35 Problem List - Problems (1) Anasarca Assessment/Plan: -improving -2/2 to liver cirrhosis Code(s): R60.1 - GENERALIZED EDEMA (2) Ascites Assessment/Plan: -improving -diuresis -seen by Nephrology and GI -chan to monitor I&O Code(s): R18.8 - OTHER ASCITES (3) CKD (chronic kidney disease) Assessment/Plan: -seen by nephrology Code(s): N18.9 - CHRONIC KIDNEY DISEASE, UNSPECIFIED Qualifiers: Chronic kidney disease stage: stage 3 (moderate) Qualified Code(s): N18.3 - Chronic kidney disease, stage 3 (moderate) (4) 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
--- NOTE | 2017-10-13 12:28 | PN ---
Progress Note, Physician History of Present Illness: In good spirit this am. No events. Able to finish all his meals, no sob while supine. - Current Medication List Current Medications: Active Medications Calcium Carbonate/Cholecalciferol (Os-Gera 500+D -) 1 tab PO BID [facility] Last Admin: 10/13/17 10:38 Dose: 1 tab Carvedilol (Coreg -) 3.125 mg PO BID [facility] Last Admin: 10/13/17 10:37 Dose: 3.125 mg Cyanocobalamin (Vitamin B12 -) 100 mcg PO DAILY [facility] Last Admin: 10/13/17 10:36 Dose: 100 mcg Ferrous Sulfate (Feosol -) 325 mg PO BIDWM [facility] Last Admin: 10/13/17 10:37 Dose: 325 mg Folic Acid (Folic Acid -) 1 mg PO DAILY [facility] Last Admin: 10/13/17 10:37 Dose: 1 mg Furosemide (Lasix Injection -) 40 mg IVPUSH BID@0600,1400 [facility] Last Admin: 10/13/17 06:46 Dose: 40 mg Guaifenesin (Robitussin Dm -) 10 ml PO Q6H PRN PRN Reason: COUGH Last Admin: 10/12/17 22:55 Dose: 10 ml Lactulose (Cephulac (Oral Use)) 20 gm PO BID [facility] Last Admin: 10/13/17 10:38 Dose: 20 gm Loratadine (Claritin -) 10 mg PO DAILY [facility] Last Admin: 10/13/17 10:37 Dose: 10 mg Neomycin Sulfate (Mycifradin -) 500 mg PO BID [facility] Last Admin: 10/13/17 10:38 Dose: 500 mg Nystatin (Nystop Powder -) 1 applic TP DAILY [facility] Last Admin: 10/13/17 10:43 Dose: 1 applic Spironolactone (Aldactone -) 75 mg PO BID [facility] Last Admin: 10/13/17 10:37 Dose: 75 mg - Objective Vital Signs: Vital Signs Temperature 99.3 F 10/13/17 05:51 Pulse Rate 76 10/13/17 05:51 Respiratory Rate 20 10/13/17 05:51 Blood Pressure 103/57 10/13/17 05:51 O2 Sat by Pulse Oximetry (%) 94 L 10/12/17 21:00 Constitutional: Yes: No Distress, Calm Eyes: Yes: Conjunctiva Clear Gastrointestinal: Yes: Soft, Abdomen, Obese. 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 Good urine output. His limited mobility is not due to ascites. 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
--- NOTE | 2017-10-13 13:07 | PN ---
Progress Note, Physician History of Present Illness: Pt seen and examined at bedside. He is awake and alert. He denies shortness of breath. - Current Medication List Current Medications: Active Medications Calcium Carbonate/Cholecalciferol (Os-Gera 500+D -) 1 tab PO BID [facility] Last Admin: 10/13/17 10:38 Dose: 1 tab Carvedilol (Coreg -) 3.125 mg PO BID [facility] Last Admin: 10/13/17 10:37 Dose: 3.125 mg Cyanocobalamin (Vitamin B12 -) 100 mcg PO DAILY [facility] Last Admin: 10/13/17 10:36 Dose: 100 mcg Ferrous Sulfate (Feosol -) 325 mg PO BIDWM [facility] Last Admin: 10/13/17 10:37 Dose: 325 mg Folic Acid (Folic Acid -) 1 mg PO DAILY [facility] Last Admin: 10/13/17 10:37 Dose: 1 mg Furosemide (Lasix Injection -) 40 mg IVPUSH BID@0600,1400 [facility] Last Admin: 10/13/17 06:46 Dose: 40 mg Guaifenesin (Robitussin Dm -) 10 ml PO Q6H PRN PRN Reason: COUGH Last Admin: 10/12/17 22:55 Dose: 10 ml Lactulose (Cephulac (Oral Use)) 20 gm PO BID [facility] Last Admin: 10/13/17 10:38 Dose: 20 gm Loratadine (Claritin -) 10 mg PO DAILY [facility] Last Admin: 10/13/17 10:37 Dose: 10 mg Neomycin Sulfate (Mycifradin -) 500 mg PO BID [facility] Last Admin: 10/13/17 10:38 Dose: 500 mg Nystatin (Nystop Powder -) 1 applic TP DAILY [facility] Last Admin: 10/13/17 10:43 Dose: 1 applic Spironolactone (Aldactone -) 75 mg PO BID [facility] Last Admin: 10/13/17 10:37 Dose: 75 mg - Objective Vital Signs: Vital Signs Temperature 99.3 F 10/13/17 05:51 Pulse Rate 76 10/13/17 05:51 Respiratory Rate 20 10/13/17 05:51 Blood Pressure 103/57 10/13/17 05:51 O2 Sat by Pulse Oximetry (%) 94 L 10/12/17 21:00 Constitutional: Yes: Calm Eyes: Yes: Conjunctiva Clear HENT: Yes: Atraumatic Cardiovascular: Yes: S1, S2 Respiratory: Yes: CTA Bilaterally Gastrointestinal: Yes: Soft, Abdomen, Obese, Ascites Genitourinary: Yes: Haq Present Musculoskeletal: Yes: WNL Edema: Yes Edema: LLE: 2+, RLE: 2+ Neurological: Yes: Oriented Psychiatric: Yes: Oriented Labs: CBC, BMP 10/13/17 06:35 10/13/17 06:35 INR, PTT INR 2.08 (0.82-1.09) H 10/13/17 06:35 Problem List - Problems (1) Anasarca Code(s): R60.1 - GENERALIZED EDEMA (2) Ascites Code(s): R18.8 - OTHER ASCITES (3) CKD (chronic kidney disease) Code(s): N18.9 - CHRONIC KIDNEY DISEASE, UNSPECIFIED Qualifiers: Chronic kidney disease stage: stage 3 (moderate) Qualified Code(s): N18.3 - Chronic kidney disease, stage 3 (moderate) (4) Fatty liver Code(s): K76.0 - FATTY (CHANGE OF) LIVER, NOT ELSEWHERE CLASSIFIED (5) 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 Code(s): K75.81 - NONALCOHOLIC STEATOHEPATITIS (NIETO); K74.60 - UNSPECIFIED CIRRHOSIS OF LIVER (6) Pancytopenia Code(s): D61.818 - OTHER PANCYTOPENIA (7) CHF (congestive heart failure) Code(s): I50.9 - HEART FAILURE, UNSPECIFIED Qualifiers: Congestive heart failure type: unspecified Congestive heart failure chronicity: acute on chronic Qualified Code(s): I50.9 - Heart failure, unspecified Assessment/Plan Current Medications Generic Name Dose Route Start Last Admin Trade Name Freq PRN Reason Stop Dose Admin Calcium Carbonate/Cholecalciferol 1 tab 10/08/17 10:00 10/13/17 10:38 Os-Gera 500+D - PO 1 tab BID SAYRA Administration Carvedilol 3.125 mg 10/08/17 10:00 10/13/17 10:37 Coreg - PO 3.125 mg BID SAYRA Administration Cyanocobalamin 100 mcg 10/08/17 10:00 10/13/17 10:36 Vitamin B12 - PO 100 mcg DAILY SAYRA Administration Ferrous Sulfate 325 mg 10/08/17 08:00 10/13/17 10:37 Feosol - PO 325 mg BIDWM SAYRA Administration Folic Acid 1 mg 10/08/17 10:00 10/13/17 10:37 Folic Acid - PO 1 mg DAILY SAYRA Administration Furosemide 40 mg 10/13/17 06:00 10/13/17 06:46 Lasix Injection - IVPUSH 40 mg BID@0600,1400 S[facility]RA Administration Guaifenesin 10 ml 10/12/17 22:49 10/12/17 22:55 Robitussin Dm - PO 10 ml Q6H PRN Administration COUGH Lactulose 20 gm 10/07/17 22:15 10/13/17 10:38 Cephulac (Oral Use) PO 20 gm BID SAYRA Administration Loratadine 10 mg 10/08/17 10:00 10/13/17 10:37 Claritin - PO 10 mg DAILY SAYRA Administration Neomycin Sulfate 500 mg 10/08/17 10:00 10/13/17 10:38 Mycifradin - PO 500 mg BID SAYRA Administration Nystatin 1 applic 10/08/17 10:00 10/13/17 10:43 Nystop Powder - TP 1 applic DAILY SAYRA Administration Spironolactone 75 mg 10/10/17 22:00 10/13/17 10:37 Aldactone - PO 75 mg BID SAYRA Administration Impression 1. CKD 2. fluid overload 3. liver cirrhosis 4. fatty liver 5. morbid obesity 6. pancytopenia 7. CHF 8. GERD 9. hyperlipidemia 10. microscopic hematuria Plan - cont diruetics, he has been net negative - check daily weights - keep IV lasix for now - repeat labs in am - will need to monitor volume status closely - discussed diet and fluid intake - will follow Dr Reaves
--- NOTE | 2017-10-13 14:52 | PN ---
Progress Note, Physician History of Present Illness: pulmonary alert,feeling better,less dyspneic - Current Medication List Current Medications: Active Medications Calcium Carbonate/Cholecalciferol (Os-Gera 500+D -) 1 tab PO BID [facility] Last Admin: 10/13/17 10:38 Dose: 1 tab Carvedilol (Coreg -) 3.125 mg PO BID [facility] Last Admin: 10/13/17 10:37 Dose: 3.125 mg Cyanocobalamin (Vitamin B12 -) 100 mcg PO DAILY [facility] Last Admin: 10/13/17 10:36 Dose: 100 mcg Ferrous Sulfate (Feosol -) 325 mg PO BIDWM [facility] Last Admin: 10/13/17 10:37 Dose: 325 mg Folic Acid (Folic Acid -) 1 mg PO DAILY [facility] Last Admin: 10/13/17 10:37 Dose: 1 mg Furosemide (Lasix Injection -) 40 mg IVPUSH BID@0600,1400 [facility] Last Admin: 10/13/17 06:46 Dose: 40 mg Guaifenesin (Robitussin Dm -) 10 ml PO Q6H PRN PRN Reason: COUGH Last Admin: 10/12/17 22:55 Dose: 10 ml Lactulose (Cephulac (Oral Use)) 20 gm PO BID [facility] Last Admin: 10/13/17 10:38 Dose: 20 gm Loratadine (Claritin -) 10 mg PO DAILY [facility] Last Admin: 10/13/17 10:37 Dose: 10 mg Neomycin Sulfate (Mycifradin -) 500 mg PO BID [facility] Last Admin: 10/13/17 10:38 Dose: 500 mg Nystatin (Nystop Powder -) 1 applic TP DAILY [facility] Last Admin: 10/13/17 10:43 Dose: 1 applic Spironolactone (Aldactone -) 75 mg PO BID [facility] Last Admin: 10/13/17 10:37 Dose: 75 mg - Objective Vital Signs: Vital Signs Temperature 99.3 F 10/13/17 05:51 Pulse Rate 76 10/13/17 05:51 Respiratory Rate 20 10/13/17 05:51 Blood Pressure 103/57 10/13/17 05:51 O2 Sat by Pulse Oximetry (%) 94 L 10/12/17 21:00 Constitutional: Yes: Calm, Obese Eyes: Yes: WNL HENT: Yes: WNL Neck: Yes: WNL Cardiovascular: Yes: Regular Rate and Rhythm, S1, S2 Respiratory: Yes: Diminished Gastrointestinal: Yes: Normal Bowel Sounds, Soft Extremities: Yes: WNL Edema: Yes Labs: CBC, BMP 10/13/17 06:35 10/13/17 06:35 INR, PTT INR 2.08 (0.82-1.09) H 10/13/17 06:35 Problem List - Problems (1) Pancytopenia Code(s): D61.818 - OTHER PANCYTOPENIA (2) Anasarca Code(s): R60.1 - GENERALIZED EDEMA (3) Ascites Code(s): R18.8 - OTHER ASCITES (4) CKD (chronic kidney disease) Code(s): N18.9 - CHRONIC KIDNEY DISEASE, UNSPECIFIED Qualifiers: Chronic kidney disease stage: stage 3 (moderate) Qualified Code(s): N18.3 - Chronic kidney disease, stage 3 (moderate) (5) Fatty liver Code(s): K76.0 - FATTY (CHANGE OF) LIVER, NOT ELSEWHERE CLASSIFIED (6) Symptomatic anemia Code(s): D64.9 - ANEMIA, UNSPECIFIED (7) CHF (congestive heart failure) Code(s): I50.9 - HEART FAILURE, UNSPECIFIED Qualifiers: Congestive heart failure type: unspecified Congestive heart failure chronicity: acute on chronic Qualified Code(s): I50.9 - Heart failure, unspecified (8) HLD (hyperlipidemia) Code(s): E78.5 - HYPERLIPIDEMIA, UNSPECIFIED Qualifiers: Hyperlipidemia type: mixed hyperlipidemia Qualified Code(s): E78.2 - Mixed hyperlipidemia (9) HTN (hypertension) Code(s): I10 - ESSENTIAL (PRIMARY) HYPERTENSION Qualifiers: Hypertension type: essential hypertension Qualified Code(s): I10 - Essential (primary) hypertension (10) Thrombocytopenia Code(s): D69.6 - THROMBOCYTOPENIA, UNSPECIFIED (11) Dyspnea Code(s): R06.00 - DYSPNEA, UNSPECIFIED Assessment/Plan A/P Volume Overload Liver Cirrhosis Ascites r/o CHF CKD Morbid Obesity Likely CHARLES - continue IV lasix, aldactone - monitor urine output, creatinine - daily weights - O2 to keep SpO2 >90% - outpt PFTs, PSG - DVT prophylaxis - sleep screen DR ELISE
[2017-10-13] MEDS ORDERED: PT OWN MED DRAWER 7, Y5N ONE (21:40)
[2017-10-14] MEDS: FUROSEMIDE 40 MG/4 ML INJECTABLE VIAL IVPUSH SCH ×2 (05:59→14:07)
--- NOTE | 2017-10-14 10:05 | PN ---
Progress Note (short form) - Note Progress Note: Patient seen and examined Feels well. denies any sx/ feels tired he says Cor: RSR, No murmurs, No gallops Lungs: Clear to P&A Abd: +ascites Ext: bilateral 2+ edema. chronic skin changes on the left Last Vital Signs Temp Pulse Resp BP Pulse Ox 98.2 F 61 18 106/58 95 10/14/17 08:24 10/14/17 08:24 10/14/17 08:24 10/14/17 08:24 10/14/17 09:00 CBC, BMP 10/13/17 06:35 10/13/17 06:35 Current Medications Generic Name Dose Route Start Last Admin Trade Name Freq PRN Reason Stop Dose Admin Calcium Carbonate/Cholecalciferol 1 tab 10/08/17 10:00 10/13/17 22:01 Os-Gera 500+D - PO 1 tab BID SAYRA Administration Carvedilol 3.125 mg 10/08/17 10:00 10/13/17 22:02 Coreg - PO 3.125 mg BID SAYRA Administration Cyanocobalamin 100 mcg 10/08/17 10:00 10/13/17 10:36 Vitamin B12 - PO 100 mcg DAILY SAYRA Administration Ferrous Sulfate 325 mg 10/08/17 08:00 10/13/17 17:25 Feosol - PO 325 mg BIDWM SAYRA Administration Folic Acid 1 mg 10/08/17 10:00 10/13/17 10:37 Folic Acid - PO 1 mg DAILY SAYRA Administration Furosemide 40 mg 10/13/17 06:00 10/14/17 05:59 Lasix Injection - IVPUSH 40 mg BID@0600,1400 SAYRA Administration Guaifenesin 10 ml 10/12/17 22:49 10/12/17 22:55 Robitussin Dm - PO 10 ml Q6H PRN Administration COUGH Lactulose 20 gm 10/07/17 22:15 10/13/17 22:02 Cephulac (Oral Use) PO 20 gm BID SAYRA Administration Loratadine 10 mg 10/08/17 10:00 10/13/17 10:37 Claritin - PO 10 mg DAILY SAYRA Administration Neomycin Sulfate 500 mg 10/08/17 10:00 10/13/17 22:02 Mycifradin - PO 500 mg BID SAYRA Administration Nystatin 1 applic 10/08/17 10:00 10/13/17 10:43 Nystop Powder - TP 1 applic DAILY SAYRA Administration Spironolactone 75 mg 10/10/17 22:00 10/13/17 22:02 Aldactone - PO 75 mg BID SAYRA Administration 57 y/o patient with Non-alcoholic liver cirrhosis Pancytopenia/coagulopathy related to liver disease Hepato-renal syndrome GI f.u appreciated. 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
[2017-10-14] MEDS ORDERED: PT OWN MED DRAWER 7, Y5N ONE ×2 (10:34→22:25)
[2017-10-14] MEDS: FERROUS SO4 325 MG TABLET (FP) PO SCH ×2 (10:41→16:52)
[2017-10-14] MEDS: CYANOCOBALAMIN (VITAMIN B-12) 100 MCG TABLET PO SCH (10:41)
[2017-10-14] MEDS: SPIRONOLACTONE 25 MG TABLET (FP) PO SCH ×2 (10:41→22:28)
[2017-10-14] MEDS: CALCIUM 500MG/VIT-D 200 UNITS COMBO TABLET (FP) PO SCH ×2 (10:41→22:27)
[2017-10-14] MEDS: CARVEDILOL 3.125 MG TABLET (FP) PO SCH ×2 (10:41→22:28)
[2017-10-14] MEDS: LORATADINE 10 MG TABLET PO SCH (10:41)
[2017-10-14] MEDS: FOLIC ACID 1 MG TABLET (FP) PO SCH (10:41)
[2017-10-14] MEDS: NEOMYCIN SO4 500 MG TABLET PO SCH ×2 (10:42→22:28)
[2017-10-14] MEDS: LACTULOSE 20 GM/30 ML UDC (FOR ORAL USE ONLY) PO SCH ×2 (10:42→22:27)
[2017-10-14] MEDS: NYSTATIN POWDER 100,000 UNITS/GM - 15 GM TOPICAL POWDER TP SCH ×2 (10:43→10:59)
--- NOTE | 2017-10-14 11:33 | PN ---
Progress Note, Physician Chief Complaint: Liver cirrhosis Ascitis History of Present Illness: NAD, edema improved seen by nephrology, GI and Pulmonary diuresing well - Current Medication List Current Medications: Active Medications Calcium Carbonate/Cholecalciferol (Os-Gera 500+D -) 1 tab PO BID [facility] Last Admin: 10/14/17 10:41 Dose: 1 tab Carvedilol (Coreg -) 3.125 mg PO BID [facility] Last Admin: 10/14/17 10:41 Dose: 3.125 mg Cyanocobalamin (Vitamin B12 -) 100 mcg PO DAILY [facility] Last Admin: 10/14/17 10:41 Dose: 100 mcg Ferrous Sulfate (Feosol -) 325 mg PO BIDWM [facility] Last Admin: 10/14/17 10:41 Dose: 325 mg Folic Acid (Folic Acid -) 1 mg PO DAILY [facility] Last Admin: 10/14/17 10:41 Dose: 1 mg Furosemide (Lasix Injection -) 40 mg IVPUSH BID@0600,1400 [facility] Last Admin: 10/14/17 05:59 Dose: 40 mg Guaifenesin (Robitussin Dm -) 10 ml PO Q6H PRN PRN Reason: COUGH Last Admin: 10/12/17 22:55 Dose: 10 ml Lactulose (Cephulac (Oral Use)) 20 gm PO BID [facility] Last Admin: 10/14/17 10:42 Dose: 20 gm Loratadine (Claritin -) 10 mg PO DAILY [facility] Last Admin: 10/14/17 10:41 Dose: 10 mg Neomycin Sulfate (Mycifradin -) 500 mg PO BID [facility] Last Admin: 10/14/17 10:42 Dose: 500 mg Nystatin (Nystop Powder -) 1 applic TP DAILY [facility] Last Admin: 10/14/17 10:59 Dose: Not Given Spironolactone (Aldactone -) 75 mg PO BID [facility] Last Admin: 10/14/17 10:41 Dose: 75 mg - Objective Vital Signs: Vital Signs Temperature 98.2 F 10/14/17 08:24 Pulse Rate 61 10/14/17 08:24 Respiratory Rate 18 10/14/17 08:24 Blood Pressure 106/58 10/14/17 08:24 O2 Sat by Pulse Oximetry (%) 95 10/14/17 09:00 Constitutional: Yes: Well Nourished, No Distress, Calm Cardiovascular: Yes: Regular Rate and Rhythm Respiratory: Yes: Regular Gastrointestinal: Yes: Abdomen, Obese, Ascites Musculoskeletal: Yes: Muscle Weakness Extremities: Yes: WNL Edema: Yes Peripheral Pulses WNL: Yes Neurological: Yes: Alert, Oriented Psychiatric: Yes: Alert, Oriented Labs: CBC, BMP 10/13/17 06:35 10/13/17 06:35 INR, PTT INR 2.08 (0.82-1.09) H 10/13/17 06:35 Problem List - Problems (1) Anasarca Assessment/Plan: -improving -2/2 to liver cirrhosis Code(s): R60.1 - GENERALIZED EDEMA (2) Ascites Assessment/Plan: -improving -diuresis -seen by Nephrology and GI -dustin to monitor I&O Code(s): R18.8 - OTHER ASCITES (3) CKD (chronic kidney disease) Assessment/Plan: -seen by nephrology -Cr at baseline Code(s): N18.9 - CHRONIC KIDNEY DISEASE, UNSPECIFIED Qualifiers: Chronic kidney disease stage: stage 3 (moderate) Qualified Code(s): N18.3 - Chronic kidney disease, stage 3 (moderate) (4) 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
--- NOTE | 2017-10-14 11:39 | PN ---
Progress Note (short form) - Note Progress Note: PULMONARY Denies shortness of breath or chest pain. Still diuresing well. Last Vital Signs Temp Pulse Resp BP Pulse Ox 98.2 F 61 18 106/58 95 10/14/17 08:24 10/14/17 08:24 10/14/17 08:24 10/14/17 08:24 10/14/17 09:00 Intake & Output 10/11/17 10/12/17 10/13/17 10/14/17 23:59 23:59 23:59 23:59 Intake Total 240 1260 1150 600 Output Total 3675 900 3500 3700 Balance -3435 360 -2350 -3100 Weight 139.57 kg 104.326 kg Gen: NAD at rest Heart: RRR Lung: decreased breath sounds at the bases Abd: soft, nontender Ext: + edema CBC, BMP 10/13/17 06:35 10/13/17 06:35 Active Medications Calcium Carbonate/Cholecalciferol (Os-Gera 500+D -) 1 tab PO BID [facility] Last Admin: 10/14/17 10:41 Dose: 1 tab Carvedilol (Coreg -) 3.125 mg PO BID [facility] Last Admin: 10/14/17 10:41 Dose: 3.125 mg Cyanocobalamin (Vitamin B12 -) 100 mcg PO DAILY [facility] Last Admin: 10/14/17 10:41 Dose: 100 mcg Ferrous Sulfate (Feosol -) 325 mg PO BIDWM [facility] Last Admin: 10/14/17 10:41 Dose: 325 mg Folic Acid (Folic Acid -) 1 mg PO DAILY [facility] Last Admin: 10/14/17 10:41 Dose: 1 mg Furosemide (Lasix Injection -) 40 mg IVPUSH BID@0600,1400 [facility] Last Admin: 10/14/17 05:59 Dose: 40 mg Guaifenesin (Robitussin Dm -) 10 ml PO Q6H PRN PRN Reason: COUGH Last Admin: 10/12/17 22:55 Dose: 10 ml Lactulose (Cephulac (Oral Use)) 20 gm PO BID [facility] Last Admin: 10/14/17 10:42 Dose: 20 gm Loratadine (Claritin -) 10 mg PO DAILY [facility] Last Admin: 10/14/17 10:41 Dose: 10 mg Neomycin Sulfate (Mycifradin -) 500 mg PO BID [facility] Last Admin: 10/14/17 10:42 Dose: 500 mg Nystatin (Nystop Powder -) 1 applic TP DAILY [facility] Last Admin: 10/14/17 10:59 Dose: Not Given Spironolactone (Aldactone -) 75 mg PO BID [facility] Last Admin: 10/14/17 10:41 Dose: 75 mg A/P Volume Overload Liver Cirrhosis Ascites r/o CHF CKD Morbid Obesity Likely CHARLES - continue lasix, aldactone - monitor urine output, creatinine - need accurate daily weights - O2 to keep SpO2 >90% - echocardiogram - outpt PFTs, PSG - DVT prophylaxis
--- NOTE | 2017-10-14 17:07 | PN ---
Progress Note, Physician History of Present Illness: Pt seen and examined at bedside. He is awake and alert. He says that he feels better today. - Current Medication List Current Medications: Active Medications Calcium Carbonate/Cholecalciferol (Os-Gera 500+D -) 1 tab PO BID [facility] Last Admin: 10/14/17 10:41 Dose: 1 tab Carvedilol (Coreg -) 3.125 mg PO BID [facility] Last Admin: 10/14/17 10:41 Dose: 3.125 mg Cyanocobalamin (Vitamin B12 -) 100 mcg PO DAILY [facility] Last Admin: 10/14/17 10:41 Dose: 100 mcg Ferrous Sulfate (Feosol -) 325 mg PO BIDWM [facility] Last Admin: 10/14/17 16:52 Dose: 325 mg Folic Acid (Folic Acid -) 1 mg PO DAILY [facility] Last Admin: 10/14/17 10:41 Dose: 1 mg Furosemide (Lasix Injection -) 40 mg IVPUSH BID@0600,1400 [facility] Last Admin: 10/14/17 14:07 Dose: 40 mg Guaifenesin (Robitussin Dm -) 10 ml PO Q6H PRN PRN Reason: COUGH Last Admin: 10/12/17 22:55 Dose: 10 ml Lactulose (Cephulac (Oral Use)) 20 gm PO BID [facility] Last Admin: 10/14/17 10:42 Dose: 20 gm Loratadine (Claritin -) 10 mg PO DAILY [facility] Last Admin: 10/14/17 10:41 Dose: 10 mg Neomycin Sulfate (Mycifradin -) 500 mg PO BID [facility] Last Admin: 10/14/17 10:42 Dose: 500 mg Nystatin (Nystop Powder -) 1 applic TP DAILY [facility] Last Admin: 10/14/17 10:59 Dose: Not Given Spironolactone (Aldactone -) 75 mg PO BID [facility] Last Admin: 10/14/17 10:41 Dose: 75 mg - Objective Vital Signs: Vital Signs Temperature 98.2 F 10/14/17 08:24 Pulse Rate 61 10/14/17 08:24 Respiratory Rate 18 10/14/17 08:24 Blood Pressure 106/58 10/14/17 08:24 O2 Sat by Pulse Oximetry (%) 95 10/14/17 09:00 Constitutional: Yes: Calm Eyes: Yes: Conjunctiva Clear HENT: Yes: Atraumatic Cardiovascular: Yes: S1, S2 Respiratory: Yes: CTA Bilaterally Gastrointestinal: Yes: Soft, Abdomen, Obese, Ascites Genitourinary: Yes: Haq Present Musculoskeletal: Yes: Muscle Weakness Edema: Yes Edema: LLE: 2+, RLE: 2+ Neurological: Yes: Oriented Psychiatric: Yes: Oriented Labs: CBC, BMP 10/13/17 06:35 10/13/17 06:35 INR, PTT INR 2.08 (0.82-1.09) H 10/13/17 06:35 Problem List - Problems (1) Anasarca Code(s): R60.1 - GENERALIZED EDEMA (2) Ascites Code(s): R18.8 - OTHER ASCITES (3) CKD (chronic kidney disease) Code(s): N18.9 - CHRONIC KIDNEY DISEASE, UNSPECIFIED Qualifiers: Chronic kidney disease stage: stage 3 (moderate) Qualified Code(s): N18.3 - Chronic kidney disease, stage 3 (moderate) (4) Fatty liver Code(s): K76.0 - FATTY (CHANGE OF) LIVER, NOT ELSEWHERE CLASSIFIED (5) 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 Code(s): K75.81 - NONALCOHOLIC STEATOHEPATITIS (NIETO); K74.60 - UNSPECIFIED CIRRHOSIS OF LIVER (6) Pancytopenia Code(s): D61.818 - OTHER PANCYTOPENIA (7) CHF (congestive heart failure) Code(s): I50.9 - HEART FAILURE, UNSPECIFIED Qualifiers: Congestive heart failure type: unspecified Congestive heart failure chronicity: acute on chronic Qualified Code(s): I50.9 - Heart failure, unspecified Assessment/Plan Current Medications Generic Name Dose Route Start Last Admin Trade Name Freq PRN Reason Stop Dose Admin Calcium Carbonate/Cholecalciferol 1 tab 10/08/17 10:00 10/14/17 10:41 Os-Gera 500+D - PO 1 tab BID SAYRA Administration Carvedilol 3.125 mg 10/08/17 10:00 10/14/17 10:41 Coreg - PO 3.125 mg BID SAYRA Administration Cyanocobalamin 100 mcg 10/08/17 10:00 10/14/17 10:41 Vitamin B12 - PO 100 mcg DAILY SAYRA Administration Ferrous Sulfate 325 mg 10/08/17 08:00 10/14/17 16:52 Feosol - PO 325 mg BIDWM SAYRA Administration Folic Acid 1 mg 10/08/17 10:00 10/14/17 10:41 Folic Acid - PO 1 mg DAILY SAYRA Administration Furosemide 40 mg 10/13/17 06:00 10/14/17 14:07 Lasix Injection - IVPUSH 40 mg BID@0600,1400 SAYRA Administration Guaifenesin 10 ml 10/12/17 22:49 10/12/17 22:55 Robitussin Dm - PO 10 ml Q6H PRN Administration COUGH Lactulose 20 gm 10/07/17 22:15 10/14/17 10:42 Cephulac (Oral Use) PO 20 gm BID SAYRA Administration Loratadine 10 mg 10/08/17 10:00 10/14/17 10:41 Claritin - PO 10 mg DAILY SAYRA Administration Neomycin Sulfate 500 mg 10/08/17 10:00 10/14/17 10:42 Mycifradin - PO 500 mg BID SAYRA Administration Nystatin 1 applic 10/08/17 10:00 10/14/17 10:59 Nystop Powder - TP Not Given DAILY SAYRA Spironolactone 75 mg 10/10/17 22:00 10/14/17 10:41 Aldactone - PO 75 mg BID SAYRA Administration Selected Entries 10/12/17 10/13/17 10/13/17 11:10 06:00 17:46 Weight 307 lb 11.2 oz 286 lb 9 oz 230 lb weights are not consistent Impression 1. CKD 2. fluid overload 3. liver cirrhosis 4. fatty liver 5. morbid obesity 6. pancytopenia 7. CHF 8. GERD 9. hyperlipidemia 10. microscopic hematuria Plan - check bmp in am - cont diuretics - monitor urine output - weights are not accurate - will need to monitor volume status closely - will follow Dr Reaves
[2017-10-15] MEDS: FUROSEMIDE 40 MG/4 ML INJECTABLE VIAL IVPUSH SCH ×3 (07:41→16:47)
[2017-10-15 08:19] LABS: BASO % 0.5 % (0-2.0); HEMATOCRIT 26.2 % (35.4-49); HEMOGLOBIN 8.7 GM/dL (11.7-16.9); LYMPH % 19.2 % (8-40); MCH 32.4 pg (25.7-33.7); MCHC 33.3 g/dl (32.0-35.9); MEAN CELL VOLUME 97.3 fl (80-96); MEAN PLT VOLUME 7.8 fl (7.5-11.1); MONO % 11.2 % (3.8-10.2); NEUT % 62.1 % (42.8-82.8); PLATELET COUNT 52 K/MM3 (134-434); RDW 18.2 % (11.9-15.9)
[2017-10-15] MEDS ORDERED: PT OWN MED DRAWER 7, Y5N ONE (09:19)
[2017-10-15] MEDS: FERROUS SO4 325 MG TABLET (FP) PO SCH ×2 (09:44→18:05)
[2017-10-15] MEDS: LACTULOSE 20 GM/30 ML UDC (FOR ORAL USE ONLY) PO SCH ×2 (10:24→21:11)
[2017-10-15] MEDS: LORATADINE 10 MG TABLET PO SCH (10:24)
[2017-10-15] MEDS: FOLIC ACID 1 MG TABLET (FP) PO SCH (10:24)
[2017-10-15] MEDS: CYANOCOBALAMIN (VITAMIN B-12) 100 MCG TABLET PO SCH (10:24)
[2017-10-15] MEDS: CALCIUM 500MG/VIT-D 200 UNITS COMBO TABLET (FP) PO SCH ×2 (10:24→21:10)
[2017-10-15] MEDS: SPIRONOLACTONE 25 MG TABLET (FP) PO SCH ×2 (10:25→21:10)
[2017-10-15] MEDS: NYSTATIN POWDER 100,000 UNITS/GM - 15 GM TOPICAL POWDER TP SCH (10:26)
--- NOTE | 2017-10-15 10:30 | PN ---
Progress Note, Physician Chief Complaint: Liver cirrhosis Ascitis History of Present Illness: NAD, edema improved seen by nephrology, GI and Pulmonary diuresing well [place] for I&O doesn't want to go back to [place] present in the [place], [place] - Current Medication List Current Medications: Active Medications Calcium Carbonate/Cholecalciferol (Os-Gera 500+D -) 1 tab PO BID [facility] Last Admin: 10/14/17 22:27 Dose: 1 tab Carvedilol (Coreg -) 3.125 mg PO BID [facility] Last Admin: 10/14/17 22:28 Dose: 3.125 mg Cyanocobalamin (Vitamin B12 -) 100 mcg PO DAILY [facility] Last Admin: 10/14/17 10:41 Dose: 100 mcg Ferrous Sulfate (Feosol -) 325 mg PO BIDWM [facility] Last Admin: 10/15/17 09:44 Dose: 325 mg Folic Acid (Folic Acid -) 1 mg PO DAILY [facility] Last Admin: 10/14/17 10:41 Dose: 1 mg Furosemide (Lasix Injection -) 40 mg IVPUSH BID@0600,1400 [facility] Last Admin: 10/15/17 07:41 Dose: Not Given Guaifenesin (Robitussin Dm -) 10 ml PO Q6H PRN PRN Reason: COUGH Last Admin: 10/12/17 22:55 Dose: 10 ml Lactulose (Cephulac (Oral Use)) 20 gm PO BID [facility] Last Admin: 10/14/17 22:27 Dose: 20 gm Loratadine (Claritin -) 10 mg PO DAILY [facility] Last Admin: 10/14/17 10:41 Dose: 10 mg Magnesium Oxide (Mag-Ox -) 400 mg PO BID [facility] Nystatin (Nystop Powder -) 1 applic TP DAILY [facility] Last Admin: 10/14/17 10:59 Dose: Not Given Spironolactone (Aldactone -) 75 mg PO BID [facility] Last Admin: 10/14/17 22:28 Dose: 75 mg - Objective Vital Signs: Vital Signs Temperature 98 F 10/15/17 09:30 Pulse Rate 71 10/15/17 09:30 Respiratory Rate 18 10/15/17 09:30 Blood Pressure 91/45 10/15/17 09:30 O2 Sat by Pulse Oximetry (%) 95 10/14/17 22:00 Constitutional: Yes: Well Nourished, No Distress, Calm Cardiovascular: Yes: Regular Rate and Rhythm Respiratory: Yes: Regular Gastrointestinal: Yes: Ascites Genitourinary: Yes: Chan Present Musculoskeletal: Yes: Muscle Weakness Edema: Yes Edema: LLE: 3+, RLE: 3+ Neurological: Yes: Alert, Oriented Psychiatric: Yes: Alert, Oriented Labs: CBC, BMP 10/15/17 06:30 10/13/17 06:35 INR, PTT INR 2.08 (0.82-1.09) H 10/13/17 06:35 Problem List - Problems (1) Anasarca Assessment/Plan: -improving -2/2 to liver cirrhosis Code(s): R60.1 - GENERALIZED EDEMA (2) Ascites Assessment/Plan: -improving -diuresis -seen by Nephrology and GI -chan to monitor I&O -IV furosemide changed to PO -on spironolactone -labs Code(s): R18.8 - OTHER ASCITES (3) CKD (chronic kidney disease) Assessment/Plan: -seen by nephrology -Cr at baseline Code(s): N18.9 - CHRONIC KIDNEY DISEASE, UNSPECIFIED Qualifiers: Chronic kidney disease stage: stage 3 (moderate) Qualified Code(s): N18.3 - Chronic kidney disease, stage 3 (moderate) (4) 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
[2017-10-15] MEDS: CARVEDILOL 3.125 MG TABLET (FP) PO SCH ×2 (10:31→21:11)
[2017-10-15] MEDS: MAGNESIUM OXIDE 400 MG TABLET (FP) PO SCH ×2 (10:33→21:11)
[2017-10-15 14:00] LABS: ALBUMIN 1.5 g/dl (3.4-5.0); ALK PHOS 100 U/L (45-117); ANION GAP 5 (8-16); BILIRUBIN,TOTAL 2.2 mg/dL (0.2-1.0); BLOOD UREA NITROGEN 33 mg/dL (7-18); CALCIUM 7.8 mg/dL (8.5-10.1); CHLORIDE 97 mmol/L (98-107); CO2 36 mmol/L (21-32); CREATININE 1.8 mg/dL (0.7-1.3); GLUCOSE,RANDOM 83 mg/dL (74-106); POTASSIUM 4.5 mmol/L (3.5-5.1); SGOT/AST 55 U/L (15-37); SGPT/ALT 20 U/L (12-78); SODIUM 138 mmol/L (136-145); TOT PROT 7.6 g/dl (6.4-8.2)
--- NOTE | 2017-10-15 16:46 | PN ---
Progress Note, Physician History of Present Illness: Pt seen and examined at bedside. His blood pressure was low today. He is awake and alert. - Current Medication List Current Medications: Active Medications Calcium Carbonate/Cholecalciferol (Os-Gera 500+D -) 1 tab PO BID [facility] Last Admin: 10/15/17 10:24 Dose: 1 tab Carvedilol (Coreg -) 3.125 mg PO BID [facility] Last Admin: 10/15/17 10:31 Dose: 3.125 mg Cyanocobalamin (Vitamin B12 -) 100 mcg PO DAILY [facility] Last Admin: 10/15/17 10:24 Dose: 100 mcg Ferrous Sulfate (Feosol -) 325 mg PO BIDWM [facility] Last Admin: 10/15/17 09:44 Dose: 325 mg Folic Acid (Folic Acid -) 1 mg PO DAILY [facility] Last Admin: 10/15/17 10:24 Dose: 1 mg Furosemide (Lasix Injection -) 40 mg IVPUSH BID@0600,1400 [facility] Last Admin: 10/15/17 07:41 Dose: Not Given Guaifenesin (Robitussin Dm -) 10 ml PO Q6H PRN PRN Reason: COUGH Last Admin: 10/12/17 22:55 Dose: 10 ml Lactulose (Cephulac (Oral Use)) 20 gm PO BID [facility] Last Admin: 10/15/17 10:24 Dose: 20 gm Loratadine (Claritin -) 10 mg PO DAILY [facility] Last Admin: 10/15/17 10:24 Dose: 10 mg Magnesium Oxide (Mag-Ox -) 400 mg PO BID [facility] Last Admin: 10/15/17 10:33 Dose: 400 mg Nystatin (Nystop Powder -) 1 applic TP DAILY [facility] Last Admin: 10/15/17 10:26 Dose: Not Given Spironolactone (Aldactone -) 75 mg PO BID [facility] Last Admin: 10/15/17 10:25 Dose: 75 mg - Objective Vital Signs: Vital Signs Temperature 98.7 F 10/15/17 15:11 Pulse Rate 72 10/15/17 15:11 Respiratory Rate 18 10/15/17 10:22 Blood Pressure 98/52 10/15/17 15:11 O2 Sat by Pulse Oximetry (%) 95 10/14/17 22:00 Constitutional: Yes: Calm Eyes: Yes: Conjunctiva Clear HENT: Yes: Atraumatic Neck: Yes: Supple Cardiovascular: Yes: S1, S2 Respiratory: Yes: CTA Bilaterally Gastrointestinal: Yes: Normal Bowel Sounds, Soft Genitourinary: Yes: Haq Present Edema: Yes Edema: LLE: 2+, RLE: 2+ Neurological: Yes: Oriented Psychiatric: Yes: Oriented Labs: CBC, BMP 10/15/17 06:30 10/15/17 06:30 INR, PTT INR 2.08 (0.82-1.09) H 10/13/17 06:35 Problem List - Problems (1) Anasarca Code(s): R60.1 - GENERALIZED EDEMA (2) Ascites Code(s): R18.8 - OTHER ASCITES (3) CKD (chronic kidney disease) Code(s): N18.9 - CHRONIC KIDNEY DISEASE, UNSPECIFIED Qualifiers: Chronic kidney disease stage: stage 3 (moderate) Qualified Code(s): N18.3 - Chronic kidney disease, stage 3 (moderate) (4) Fatty liver Code(s): K76.0 - FATTY (CHANGE OF) LIVER, NOT ELSEWHERE CLASSIFIED (5) 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 Code(s): K75.81 - NONALCOHOLIC STEATOHEPATITIS (NIETO); K74.60 - UNSPECIFIED CIRRHOSIS OF LIVER (6) Pancytopenia Code(s): D61.818 - OTHER PANCYTOPENIA (7) CHF (congestive heart failure) Code(s): I50.9 - HEART FAILURE, UNSPECIFIED Qualifiers: Congestive heart failure type: unspecified Congestive heart failure chronicity: acute on chronic Qualified Code(s): I50.9 - Heart failure, unspecified Assessment/Plan Current Medications Generic Name Dose Route Start Last Admin Trade Name Freq PRN Reason Stop Dose Admin Calcium Carbonate/Cholecalciferol 1 tab 10/08/17 10:00 10/15/17 10:24 Os-Gera 500+D - PO 1 tab BID SAYRA Administration Carvedilol 3.125 mg 10/08/17 10:00 10/15/17 10:31 Coreg - PO 3.125 mg BID SAYRA Administration Cyanocobalamin 100 mcg 10/08/17 10:00 10/15/17 10:24 Vitamin B12 - PO 100 mcg DAILY [facility]AYRA Administration Ferrous Sulfate 325 mg 10/08/17 08:00 10/15/17 09:44 Feosol - PO 325 mg BIDWM SAYRA Administration Folic Acid 1 mg 10/08/17 10:00 10/15/17 10:24 Folic Acid - PO 1 mg DAILY [facility] Administration Furosemide 40 mg 10/13/17 06:00 10/15/17 07:41 Lasix Injection - IVPUSH Not Given BID@0600,1400 [facility] Guaifenesin 10 ml 10/12/17 22:49 10/12/17 22:55 Robitussin Dm - PO 10 ml Q6H PRN Administration COUGH Lactulose 20 gm 10/07/17 22:15 10/15/17 10:24 Cephulac (Oral Use) PO 20 gm BID [facility]AYRA Administration Loratadine 10 mg 10/08/17 10:00 10/15/17 10:24 Claritin - PO 10 mg DAILY [facility] Administration Magnesium Oxide 400 mg 10/15/17 10:15 10/15/17 10:33 Mag-Ox - PO 400 mg BID [facility]AYRA Administration Nystatin 1 applic 10/08/17 10:00 10/15/17 10:26 Nystop Powder - TP Not Given DAILY [facility] Spironolactone 75 mg 10/10/17 22:00 10/15/17 10:25 Aldactone - PO 75 mg BID SAYRA Administration Impression 1. CKD 2. fluid overload 3. liver cirrhosis 4. fatty liver 5. morbid obesity 6. pancytopenia 7. CHF 8. GERD 9. hyperlipidemia 10. microscopic hematuria Plan - will change lasix to po to and change spironolactone to 50 bid - will give a dose of albumin - monitor urine output - will need to monitor volume status closely - will follow Dr Reaves
[2017-10-15] MEDS ORDERED: ALBUMIN HUMAN 25% 12.5 GM/50 ML VIAL IVPB SCH (17:00)
[2017-10-16] MEDS: FUROSEMIDE 20 MG TABLET (FP) PO SCH ×3 (06:23→16:01)
[2017-10-16 08:11] LABS: BASO % 0.6 % (0-2.0); EOS % 7.3 % (0-4.5); HEMATOCRIT 24.9 % (35.4-49); HEMOGLOBIN 8.2 GM/dL (11.7-16.9); LYMPH % 19.4 % (8-40); MCH 32.4 pg (25.7-33.7); MCHC 33.1 g/dl (32.0-35.9); MEAN CELL VOLUME 97.9 fl (80-96); MEAN PLT VOLUME 7.8 fl (7.5-11.1); MONO % 11.6 % (3.8-10.2); NEUT % 61.1 % (42.8-82.8); PLATELET COUNT 53 K/MM3 (134-434); RBC 2.55 M/mm3 (4.00-5.60); RDW 17.9 % (11.9-15.9); WHITE BLOOD COUNT 2.9 K/mm3 (4.0-10.0)
[2017-10-16 08:45] LABS: CHLORIDE 97 mmol/L (98-107); POTASSIUM 4.8 mmol/L (3.5-5.1); SODIUM 137 mmol/L (136-145)
[2017-10-16 08:54] LABS: ALBUMIN 1.5 g/dl (3.4-5.0); ALK PHOS 93 U/L (45-117); ANION GAP 7 (8-16); BILIRUBIN,TOTAL 2.4 mg/dL (0.2-1.0); BLOOD UREA NITROGEN 31 mg/dL (7-18); CALCIUM 7.4 mg/dL (8.5-10.1); CO2 33 mmol/L (21-32); CREATININE 1.8 mg/dL (0.7-1.3); GLUCOSE,RANDOM 77 mg/dL (74-106); SGOT/AST 48 U/L (15-37); SGPT/ALT 20 U/L (12-78); TOT PROT 7.1 g/dl (6.4-8.2)
[2017-10-16] MEDS: FERROUS SO4 325 MG TABLET (FP) PO SCH ×2 (09:44→18:03)
[2017-10-16] MEDS: CYANOCOBALAMIN (VITAMIN B-12) 100 MCG TABLET PO SCH (09:56)
[2017-10-16] MEDS: LACTULOSE 20 GM/30 ML UDC (FOR ORAL USE ONLY) PO SCH ×2 (09:56→21:40)
[2017-10-16] MEDS: LORATADINE 10 MG TABLET PO SCH (09:56)
[2017-10-16] MEDS: CALCIUM 500MG/VIT-D 200 UNITS COMBO TABLET (FP) PO SCH ×2 (09:56→21:39)
[2017-10-16] MEDS: NYSTATIN POWDER 100,000 UNITS/GM - 15 GM TOPICAL POWDER TP SCH (09:56)
[2017-10-16] MEDS: SPIRONOLACTONE 25 MG TABLET (FP) PO SCH ×2 (09:56→23:09)
[2017-10-16] MEDS: FOLIC ACID 1 MG TABLET (FP) PO SCH (09:56)
[2017-10-16] MEDS: MAGNESIUM OXIDE 400 MG TABLET (FP) PO SCH ×2 (09:56→21:39)
[2017-10-16] MEDS: CARVEDILOL 3.125 MG TABLET (FP) PO SCH ×2 (09:56→23:17)
[2017-10-16 12:52] LABS: ALBUMIN 1.7 g/dl (3.4-5.0); ANION GAP 2 (8-16); BLOOD UREA NITROGEN 32 mg/dL (7-18); CALCIUM 7.8 mg/dL (8.5-10.1); CHLORIDE 95 mmol/L (98-107); CO2 38 mmol/L (21-32); CREATININE 1.8 mg/dL (0.7-1.3); GLUCOSE,RANDOM 92 mg/dL (74-106); POTASSIUM 4.6 mmol/L (3.5-5.1); SGOT/AST 56 U/L (15-37); SGPT/ALT 22 U/L (12-78); SODIUM 135 mmol/L (136-145)
[2017-10-16 12:53] LABS: ALK PHOS 109 U/L (45-117); BILIRUBIN,TOTAL 2.7 mg/dL (0.2-1.0); TOT PROT 7.9 g/dl (6.4-8.2)
--- NOTE | 2017-10-16 13:54 | PN ---
Progress Note, Physician History of Present Illness: FEELS BETTER LESS SWELLING - Current Medication List Current Medications: Active Medications Calcium Carbonate/Cholecalciferol (Os-Gera 500+D -) 1 tab PO BID [facility] Last Admin: 10/16/17 09:56 Dose: 1 tab Carvedilol (Coreg -) 3.125 mg PO BID [facility] Last Admin: 10/16/17 09:56 Dose: 3.125 mg Cyanocobalamin (Vitamin B12 -) 100 mcg PO DAILY [facility] Last Admin: 10/16/17 09:56 Dose: 100 mcg Ferrous Sulfate (Feosol -) 325 mg PO BIDWM [facility] Last Admin: 10/16/17 09:44 Dose: 325 mg Folic Acid (Folic Acid -) 1 mg PO DAILY [facility] Last Admin: 10/16/17 09:56 Dose: 1 mg Furosemide (Lasix -) 60 mg PO BID@0600,1400 [facility] Last Admin: 10/16/17 06:23 Dose: 60 mg Guaifenesin (Robitussin Dm -) 10 ml PO Q6H PRN PRN Reason: COUGH Last Admin: 10/12/17 22:55 Dose: 10 ml Lactulose (Cephulac (Oral Use)) 20 gm PO BID [facility] Last Admin: 10/16/17 09:56 Dose: 20 gm Loratadine (Claritin -) 10 mg PO DAILY [facility] Last Admin: 10/16/17 09:56 Dose: 10 mg Magnesium Oxide (Mag-Ox -) 400 mg PO BID [facility] Last Admin: 10/16/17 09:56 Dose: 400 mg Nystatin (Nystop Powder -) 1 applic TP DAILY [facility] Last Admin: 10/16/17 09:56 Dose: Not Given Spironolactone (Aldactone -) 50 mg PO BID [facility] Last Admin: 10/16/17 09:56 Dose: 50 mg - Objective Vital Signs: Vital Signs Temperature 98.5 F 10/16/17 09:01 Pulse Rate 68 10/16/17 09:01 Respiratory Rate 16 10/16/17 09:01 Blood Pressure 96/48 10/16/17 09:01 O2 Sat by Pulse Oximetry (%) 95 10/16/17 09:00 Cardiovascular: Yes: S1, S2 Respiratory: Yes: Regular, CTA Bilaterally Gastrointestinal: Yes: Normal Bowel Sounds, Soft Edema: Yes Labs: CBC, BMP 10/16/17 06:55 10/16/17 11:45 INR, PTT INR 2.08 (0.82-1.09) H 10/13/17 06:35 Problem List - Problems (1) Anasarca Code(s): R60.1 - GENERALIZED EDEMA (2) Ascites Code(s): R18.8 - OTHER ASCITES (3) CKD (chronic kidney disease) Code(s): N18.9 - CHRONIC KIDNEY DISEASE, UNSPECIFIED Qualifiers: Chronic kidney disease stage: stage 3 (moderate) Qualified Code(s): N18.3 - Chronic kidney disease, stage 3 (moderate) (4) 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 Code(s): K75.81 - NONALCOHOLIC STEATOHEPATITIS (NIETO); K74.60 - UNSPECIFIED CIRRHOSIS OF LIVER (5) Pancytopenia Code(s): D61.818 - OTHER PANCYTOPENIA Assessment/Plan - Problems (1) Anasarca Assessment/Plan: -improving -2/2 to liver cirrhosis -ON LASIX AND ALDACTONE Code(s): R60.1 - GENERALIZED EDEMA (2) Ascites Assessment/Plan: -improving -diuresis -seen by Nephrology and GI -chan to monitor I&O -IV furosemide changed to PO -on spironolactone -labs Code(s): R18.8 - OTHER ASCITES (3) CKD (chronic kidney disease) Assessment/Plan: -seen by nephrology -Cr at baseline Code(s): N18.9 - CHRONIC KIDNEY DISEASE, UNSPECIFIED Qualifiers: Chronic kidney disease stage: stage 3 (moderate) Qualified Code(s): N18.3 - Chronic kidney disease, stage 3 (moderate) (4) 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
--- NOTE | 2017-10-16 14:49 | PN ---
Progress Note, Physician History of Present Illness: pulmonary alert,feeling better,-resp distress. sleep screen AHI 42.5 c/w severe CHARLES - Current Medication List Current Medications: Active Medications Calcium Carbonate/Cholecalciferol (Os-Gera 500+D -) 1 tab PO BID [facility] Last Admin: 10/16/17 09:56 Dose: 1 tab Carvedilol (Coreg -) 3.125 mg PO BID [facility] Last Admin: 10/16/17 09:56 Dose: 3.125 mg Cyanocobalamin (Vitamin B12 -) 100 mcg PO DAILY [facility] Last Admin: 10/16/17 09:56 Dose: 100 mcg Ferrous Sulfate (Feosol -) 325 mg PO BIDWM [facility] Last Admin: 10/16/17 09:44 Dose: 325 mg Folic Acid (Folic Acid -) 1 mg PO DAILY [facility] Last Admin: 10/16/17 09:56 Dose: 1 mg Furosemide (Lasix -) 60 mg PO BID@0600,1400 [facility] Last Admin: 10/16/17 06:23 Dose: 60 mg Guaifenesin (Robitussin Dm -) 10 ml PO Q6H PRN PRN Reason: COUGH Last Admin: 10/12/17 22:55 Dose: 10 ml Lactulose (Cephulac (Oral Use)) 20 gm PO BID [facility] Last Admin: 10/16/17 09:56 Dose: 20 gm Loratadine (Claritin -) 10 mg PO DAILY [facility] Last Admin: 10/16/17 09:56 Dose: 10 mg Magnesium Oxide (Mag-Ox -) 400 mg PO BID [facility] Last Admin: 10/16/17 09:56 Dose: 400 mg Nystatin (Nystop Powder -) 1 applic TP DAILY [facility] Last Admin: 10/16/17 09:56 Dose: Not Given Spironolactone (Aldactone -) 50 mg PO BID [facility] Last Admin: 10/16/17 09:56 Dose: 50 mg - Objective Vital Signs: Vital Signs Temperature 98.5 F 10/16/17 09:01 Pulse Rate 68 10/16/17 09:01 Respiratory Rate 16 10/16/17 09:01 Blood Pressure 96/48 10/16/17 09:01 O2 Sat by Pulse Oximetry (%) 95 10/16/17 09:00 Constitutional: Yes: No Distress, Obese Eyes: Yes: WNL HENT: Yes: WNL Neck: Yes: WNL Cardiovascular: Yes: Regular Rate and Rhythm, S1, S2 Respiratory: Yes: Diminished Gastrointestinal: Yes: Normal Bowel Sounds, Soft Extremities: Yes: WNL Edema: Yes Labs: CBC, BMP 10/16/17 06:55 10/16/17 11:45 INR, PTT INR 2.08 (0.82-1.09) H 10/13/17 06:35 Problem List - Problems (1) Pancytopenia Code(s): D61.818 - OTHER PANCYTOPENIA (2) Anasarca Code(s): R60.1 - GENERALIZED EDEMA (3) Ascites Code(s): R18.8 - OTHER ASCITES (4) CKD (chronic kidney disease) Code(s): N18.9 - CHRONIC KIDNEY DISEASE, UNSPECIFIED Qualifiers: Chronic kidney disease stage: stage 3 (moderate) Qualified Code(s): N18.3 - Chronic kidney disease, stage 3 (moderate) (5) Fatty liver Code(s): K76.0 - FATTY (CHANGE OF) LIVER, NOT ELSEWHERE CLASSIFIED (6) Symptomatic anemia Code(s): D64.9 - ANEMIA, UNSPECIFIED (7) CHF (congestive heart failure) Code(s): I50.9 - HEART FAILURE, UNSPECIFIED Qualifiers: Congestive heart failure type: unspecified Congestive heart failure chronicity: acute on chronic Qualified Code(s): I50.9 - Heart failure, unspecified (8) HLD (hyperlipidemia) Code(s): E78.5 - HYPERLIPIDEMIA, UNSPECIFIED Qualifiers: Hyperlipidemia type: mixed hyperlipidemia Qualified Code(s): E78.2 - Mixed hyperlipidemia (9) HTN (hypertension) Code(s): I10 - ESSENTIAL (PRIMARY) HYPERTENSION Qualifiers: Hypertension type: essential hypertension Qualified Code(s): I10 - Essential (primary) hypertension (10) Thrombocytopenia Code(s): D69.6 - THROMBOCYTOPENIA, UNSPECIFIED (11) Dyspnea Code(s): R06.00 - DYSPNEA, UNSPECIFIED Assessment/Plan A/P Volume Overload Liver Cirrhosis Ascites r/o CHF CKD Morbid Obesity CHARLES AHI 42.5 - continue IV lasix, aldactone - monitor urine output, creatinine - daily weights - O2 to keep SpO2 >90% - outpt PFTs, PSG - DVT prophylaxis - sleep studies outpatient DR ELISE
--- NOTE | 2017-10-16 17:08 | PN ---
Progress Note (short form) - Note Progress Note: covering dr mckee cirrhosis ascites diuretic therapy Current Medications Calcium Carbonate/Cholecalciferol (Os-Gera 500+D -) 1 tab PO BID [facility] Last Admin: 10/16/17 09:56 Dose: 1 tab Carvedilol (Coreg -) 3.125 mg PO BID [facility] Last Admin: 10/16/17 09:56 Dose: 3.125 mg Cyanocobalamin (Vitamin B12 -) 100 mcg PO DAILY [facility] Last Admin: 10/16/17 09:56 Dose: 100 mcg Ferrous Sulfate (Feosol -) 325 mg PO BIDWM [facility] Last Admin: 10/16/17 09:44 Dose: 325 mg Folic Acid (Folic Acid -) 1 mg PO DAILY [facility] Last Admin: 10/16/17 09:56 Dose: 1 mg Furosemide (Lasix -) 60 mg PO BID@0600,1400 [facility] Last Admin: 10/16/17 16:01 Dose: Not Given Guaifenesin (Robitussin Dm -) 10 ml PO Q6H PRN PRN Reason: COUGH Last Admin: 10/12/17 22:55 Dose: 10 ml Lactulose (Cephulac (Oral Use)) 20 gm PO BID [facility] Last Admin: 10/16/17 09:56 Dose: 20 gm Loratadine (Claritin -) 10 mg PO DAILY [facility] Last Admin: 10/16/17 09:56 Dose: 10 mg Magnesium Oxide (Mag-Ox -) 400 mg PO BID [facility] Last Admin: 10/16/17 09:56 Dose: 400 mg Nystatin (Nystop Powder -) 1 applic TP DAILY [facility] Last Admin: 10/16/17 09:56 Dose: Not Given Spironolactone (Aldactone -) 50 mg PO BID [facility] Last Admin: 10/16/17 09:56 Dose: 50 mg Last Vital Signs Temp Pulse Resp BP Pulse Ox 98.2 F 68 16 91/42 95 10/16/17 14:56 10/16/17 14:56 10/16/17 14:56 10/16/17 15:00 10/16/17 09:00 lungs clear Heart reg abd soft nontender ext no edema CBC, BMP 10/16/17 06:55 10/16/17 11:45 IMP- chronic liver disease Plan- continue rx
[2017-10-17] MEDS: FUROSEMIDE 20 MG TABLET (FP) PO SCH ×2 (06:24→13:39)
[2017-10-17 07:44] LABS: BASO % 0.7 % (0-2.0); EOS % 7.3 % (0-4.5); HEMATOCRIT 26.6 % (35.4-49); LYMPH % 18.7 % (8-40); MCH 32.6 pg (25.7-33.7); MCHC 33.7 g/dl (32.0-35.9); MEAN CELL VOLUME 96.6 fl (80-96); MEAN PLT VOLUME 7.9 fl (7.5-11.1); MONO % 11.3 % (3.8-10.2); PLATELET COUNT 58 K/MM3 (134-434); RBC 2.76 M/mm3 (4.00-5.60); RDW 17.6 % (11.9-15.9); WHITE BLOOD COUNT 3.3 K/mm3 (4.0-10.0)
--- NOTE | 2017-10-17 10:28 | PN ---
Progress Note, Physician Chief Complaint: Liver cirrhosis Ascitis History of Present Illness: NAD, edema improved seen by nephrology, GI and Pulmonary diuresing well Dustin for I&O -on PO diuretics - Current Medication List Current Medications: Active Medications Calcium Carbonate/Cholecalciferol (Os-Gera 500+D -) 1 tab PO BID [facility] Last Admin: 10/16/17 21:39 Dose: 1 tab Carvedilol (Coreg -) 3.125 mg PO BID [facility] Cyanocobalamin (Vitamin B12 -) 100 mcg PO DAILY [facility] Last Admin: 10/16/17 09:56 Dose: 100 mcg Ferrous Sulfate (Feosol -) 325 mg PO BIDWM [facility] Last Admin: 10/16/17 18:03 Dose: 325 mg Folic Acid (Folic Acid -) 1 mg PO DAILY [facility] Last Admin: 10/16/17 09:56 Dose: 1 mg Furosemide (Lasix -) 60 mg PO BID@0600,1400 [facility] Guaifenesin (Robitussin Dm -) 10 ml PO Q6H PRN PRN Reason: COUGH Last Admin: 10/12/17 22:55 Dose: 10 ml Lactulose (Cephulac (Oral Use)) 20 gm PO BID [facility] Last Admin: 10/16/17 21:40 Dose: 20 gm Loratadine (Claritin -) 10 mg PO DAILY [facility] Last Admin: 10/16/17 09:56 Dose: 10 mg Magnesium Oxide (Mag-Ox -) 400 mg PO BID [facility] Last Admin: 10/16/17 21:39 Dose: 400 mg Nystatin (Nystop Powder -) 1 applic TP DAILY [facility] Last Admin: 10/16/17 09:56 Dose: Not Given Spironolactone (Aldactone -) 50 mg PO BID [facility] - Objective Vital Signs: Vital Signs Temperature 97.8 F 10/17/17 06:00 Pulse Rate 67 10/17/17 06:00 Respiratory Rate 16 10/17/17 06:00 Blood Pressure 118/59 10/17/17 06:00 O2 Sat by Pulse Oximetry (%) 96 10/16/17 21:00 Constitutional: Yes: Well Nourished, No Distress, Calm Cardiovascular: Yes: Regular Rate and Rhythm Respiratory: Yes: Regular Gastrointestinal: Yes: Ascites Musculoskeletal: Yes: Muscle Weakness Edema: Yes Edema: LLE: 3+, RLE: 3+ Peripheral Pulses WNL: Yes Neurological: Yes: Alert, Oriented Psychiatric: Yes: Alert, Oriented Labs: CBC, BMP 10/17/17 07:00 10/16/17 11:45 INR, PTT INR 2.08 (0.82-1.09) H 10/13/17 06:35 Problem List - Problems (1) Anasarca Assessment/Plan: -improving -2/2 to liver cirrhosis Code(s): R60.1 - GENERALIZED EDEMA (2) Ascites Assessment/Plan: -improving -diuresis -seen by Nephrology and GI -dustin to monitor I&O -IV furosemide changed to PO -on spironolactone -labs Code(s): R18.8 - OTHER ASCITES (3) CKD (chronic kidney disease) Assessment/Plan: -seen by nephrology -Cr at baseline Code(s): N18.9 - CHRONIC KIDNEY DISEASE, UNSPECIFIED Qualifiers: Chronic kidney disease stage: stage 3 (moderate) Qualified Code(s): N18.3 - Chronic kidney disease, stage 3 (moderate) (4) 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
[2017-10-17] MEDS: SPIRONOLACTONE 25 MG TABLET (FP) PO SCH ×2 (10:32→22:09)
[2017-10-17] MEDS: FOLIC ACID 1 MG TABLET (FP) PO SCH (10:32)
[2017-10-17] MEDS: CALCIUM 500MG/VIT-D 200 UNITS COMBO TABLET (FP) PO SCH ×2 (10:32→22:09)
[2017-10-17] MEDS: MAGNESIUM OXIDE 400 MG TABLET (FP) PO SCH ×2 (10:32→22:09)
[2017-10-17] MEDS: FERROUS SO4 325 MG TABLET (FP) PO SCH ×2 (10:33→17:08)
[2017-10-17] MEDS: CARVEDILOL 3.125 MG TABLET (FP) PO SCH ×2 (10:33→22:09)
[2017-10-17] MEDS: LORATADINE 10 MG TABLET PO SCH (10:33)
[2017-10-17] MEDS: LACTULOSE 20 GM/30 ML UDC (FOR ORAL USE ONLY) PO SCH ×2 (10:33→22:09)
[2017-10-17] MEDS: NYSTATIN POWDER 100,000 UNITS/GM - 15 GM TOPICAL POWDER TP SCH (10:33)
[2017-10-17] MEDS: CYANOCOBALAMIN (VITAMIN B-12) 100 MCG TABLET PO SCH (10:33)
[2017-10-17 11:08] LABS: ALBUMIN 1.6 g/dl (3.4-5.0); ALK PHOS 97 U/L (45-117); ANION GAP 4 (8-16); BILIRUBIN,TOTAL 2.7 mg/dL (0.2-1.0); BLOOD UREA NITROGEN 29 mg/dL (7-18); CALCIUM 8.1 mg/dL (8.5-10.1); CHLORIDE 96 mmol/L (98-107); CO2 35 mmol/L (21-32); CREATININE 1.8 mg/dL (0.7-1.3); GLUCOSE,RANDOM 80 mg/dL (74-106); SGOT/AST 52 U/L (15-37); SGPT/ALT 22 U/L (12-78); SODIUM 135 mmol/L (136-145); TOT PROT 7.9 g/dl (6.4-8.2)
--- NOTE | 2017-10-17 15:24 | PN ---
Progress Note, Physician History of Present Illness: PULMONARY ALERT,COMFORTABLE,NO DISTRESS,-SOB,GOOD DIURESIS WITH LASIX AND ALDACTONE - Current Medication List Current Medications: Active Medications Calcium Carbonate/Cholecalciferol (Os-Gera 500+D -) 1 tab PO BID [facility] Last Admin: 10/17/17 10:32 Dose: 1 tab Carvedilol (Coreg -) 3.125 mg PO BID [facility] Cyanocobalamin (Vitamin B12 -) 100 mcg PO DAILY [facility] Last Admin: 10/17/17 10:33 Dose: 100 mcg Ferrous Sulfate (Feosol -) 325 mg PO BIDWM [facility] Last Admin: 10/17/17 10:33 Dose: 325 mg Folic Acid (Folic Acid -) 1 mg PO DAILY [facility] Last Admin: 10/17/17 10:32 Dose: 1 mg Furosemide (Lasix -) 60 mg PO BID@0600,1400 [facility] Last Admin: 10/17/17 13:39 Dose: 60 mg Guaifenesin (Robitussin Dm -) 10 ml PO Q6H PRN PRN Reason: COUGH Last Admin: 10/12/17 22:55 Dose: 10 ml Lactulose (Cephulac (Oral Use)) 20 gm PO BID [facility] Last Admin: 10/17/17 10:33 Dose: 20 gm Loratadine (Claritin -) 10 mg PO DAILY [facility] Last Admin: 10/17/17 10:33 Dose: 10 mg Magnesium Oxide (Mag-Ox -) 400 mg PO BID [facility] Last Admin: 10/17/17 10:32 Dose: 400 mg Nystatin (Nystop Powder -) 1 applic TP DAILY [facility] Last Admin: 10/17/17 10:33 Dose: Not Given Spironolactone (Aldactone -) 50 mg PO BID [facility] - Objective Vital Signs: Vital Signs Temperature 98.4 F 10/17/17 15:12 Pulse Rate 74 10/17/17 15:12 Respiratory Rate 18 10/17/17 15:12 Blood Pressure 131/60 10/17/17 15:12 O2 Sat by Pulse Oximetry (%) 95 10/17/17 09:00 Constitutional: Yes: Calm, Obese Eyes: Yes: WNL HENT: Yes: WNL Neck: Yes: WNL Cardiovascular: Yes: Regular Rate and Rhythm, S1, S2 Respiratory: Yes: CTA Bilaterally Gastrointestinal: Yes: Normal Bowel Sounds, Soft Extremities: Yes: WNL Edema: Yes Labs: CBC, BMP 10/17/17 07:00 10/17/17 10:50 INR, PTT INR 2.08 (0.82-1.09) H 10/13/17 06:35 Problem List - Problems (1) Pancytopenia Code(s): D61.818 - OTHER PANCYTOPENIA (2) Anasarca Code(s): R60.1 - GENERALIZED EDEMA (3) Ascites Code(s): R18.8 - OTHER ASCITES (4) CKD (chronic kidney disease) Code(s): N18.9 - CHRONIC KIDNEY DISEASE, UNSPECIFIED Qualifiers: Chronic kidney disease stage: stage 3 (moderate) Qualified Code(s): N18.3 - Chronic kidney disease, stage 3 (moderate) (5) Fatty liver Code(s): K76.0 - FATTY (CHANGE OF) LIVER, NOT ELSEWHERE CLASSIFIED (6) Symptomatic anemia Code(s): D64.9 - ANEMIA, UNSPECIFIED (7) CHF (congestive heart failure) Code(s): I50.9 - HEART FAILURE, UNSPECIFIED Qualifiers: Congestive heart failure type: unspecified Congestive heart failure chronicity: acute on chronic Qualified Code(s): I50.9 - Heart failure, unspecified (8) HLD (hyperlipidemia) Code(s): E78.5 - HYPERLIPIDEMIA, UNSPECIFIED Qualifiers: Hyperlipidemia type: mixed hyperlipidemia Qualified Code(s): E78.2 - Mixed hyperlipidemia (9) HTN (hypertension) Code(s): I10 - ESSENTIAL (PRIMARY) HYPERTENSION Qualifiers: Hypertension type: essential hypertension Qualified Code(s): I10 - Essential (primary) hypertension (10) Thrombocytopenia Code(s): D69.6 - THROMBOCYTOPENIA, UNSPECIFIED (11) Dyspnea Code(s): R06.00 - DYSPNEA, UNSPECIFIED Assessment/Plan A/P Volume Overload Liver Cirrhosis Ascites r/o CHF CKD Morbid Obesity CHARLES AHI 42.5 - continue lasix, aldactone - monitor urine output, creatinine - daily weights - O2 to keep SpO2 >90% - outpt PFTs, PSG - DVT prophylaxis - DR ELISE
--- NOTE | 2017-10-17 19:30 | PN ---
Progress Note (short form) - Note Progress Note: covering dr mckee cirrhosis ascites diuretic therapy hypotension Active Medications Calcium Carbonate/Cholecalciferol (Os-Gera 500+D -) 1 tab PO BID [facility] Last Admin: 10/17/17 10:32 Dose: 1 tab Carvedilol (Coreg -) 3.125 mg PO BID [facility] Cyanocobalamin (Vitamin B12 -) 100 mcg PO DAILY [facility] Last Admin: 10/17/17 10:33 Dose: 100 mcg Ferrous Sulfate (Feosol -) 325 mg PO BIDWM [facility] Last Admin: 10/17/17 17:08 Dose: 325 mg Folic Acid (Folic Acid -) 1 mg PO DAILY [facility] Last Admin: 10/17/17 10:32 Dose: 1 mg Furosemide (Lasix -) 60 mg PO BID@0600,1400 [facility] Last Admin: 10/17/17 13:39 Dose: 60 mg Guaifenesin (Robitussin Dm -) 10 ml PO Q6H PRN PRN Reason: COUGH Last Admin: 10/12/17 22:55 Dose: 10 ml Lactulose (Cephulac (Oral Use)) 20 gm PO BID [facility] Last Admin: 10/17/17 10:33 Dose: 20 gm Loratadine (Claritin -) 10 mg PO DAILY [facility] Last Admin: 10/17/17 10:33 Dose: 10 mg Magnesium Oxide (Mag-Ox -) 400 mg PO BID [facility] Last Admin: 10/17/17 10:32 Dose: 400 mg Nystatin (Nystop Powder -) 1 applic TP DAILY [facility] Last Admin: 10/17/17 10:33 Dose: Not Given Spironolactone (Aldactone -) 50 mg PO BID [facility] Last Vital Signs Temp Pulse Resp BP Pulse Ox 98.4 F 75 20 105/53 95 10/17/17 18:00 10/17/17 18:00 10/17/17 18:00 10/17/17 18:00 10/17/17 09:00 lungs clear Heart reg abd soft nontender ext no edema CBC, BMP 10/16/17 06:55 10/16/17 11:45 IMP- chronic liver disease ascites hypotension Plan- continue rx
[2017-10-17] MEDS: guaiFENesin/D-METHORPHAN HB 10 ML UNIT-DOSE CUPS PO PRN (22:10)
[2017-10-18] MEDS: FUROSEMIDE 20 MG TABLET (FP) PO SCH ×2 (06:27→15:10)
[2017-10-18 08:08] LABS: BASO % 0.6 % (0-2.0); EOS % 5.5 % (0-4.5); HEMATOCRIT 26.5 % (35.4-49); HEMOGLOBIN 8.9 GM/dL (11.7-16.9); LYMPH % 16.4 % (8-40); MCH 32.4 pg (25.7-33.7); MCHC 33.5 g/dl (32.0-35.9); MEAN CELL VOLUME 96.9 fl (80-96); MEAN PLT VOLUME 7.8 fl (7.5-11.1); MONO % 11.1 % (3.8-10.2); NEUT % 66.4 % (42.8-82.8); PLATELET COUNT 60 K/MM3 (134-434); RBC 2.73 M/mm3 (4.00-5.60); RDW 17.3 % (11.9-15.9); WHITE BLOOD COUNT 3.6 K/mm3 (4.0-10.0)
[2017-10-18 08:46] LABS: ALBUMIN 1.5 g/dl (3.4-5.0); ANION GAP 3 (8-16); BLOOD UREA NITROGEN 30 mg/dL (7-18); CHLORIDE 97 mmol/L (98-107); CO2 34 mmol/L (21-32); GLUCOSE,RANDOM 80 mg/dL (74-106); POTASSIUM 5.1 mmol/L (3.5-5.1); SODIUM 134 mmol/L (136-145)
[2017-10-18 08:49] LABS: ALK PHOS 96 U/L (45-117); BILIRUBIN,TOTAL 2.8 mg/dL (0.2-1.0); CREATININE 1.9 mg/dL (0.7-1.3); SGOT/AST 50 U/L (15-37); SGPT/ALT 20 U/L (12-78); TOT PROT 7.6 g/dl (6.4-8.2)
[2017-10-18] MEDS: MAGNESIUM OXIDE 400 MG TABLET (FP) PO SCH ×2 (10:10→22:15)
[2017-10-18] MEDS: CARVEDILOL 3.125 MG TABLET (FP) PO SCH ×2 (10:10→22:15)
[2017-10-18] MEDS: SPIRONOLACTONE 25 MG TABLET (FP) PO SCH (10:10)
[2017-10-18] MEDS: CALCIUM 500MG/VIT-D 200 UNITS COMBO TABLET (FP) PO SCH ×2 (10:10→22:15)
[2017-10-18] MEDS: FERROUS SO4 325 MG TABLET (FP) PO SCH ×2 (10:10→18:14)
[2017-10-18] MEDS: LACTULOSE 20 GM/30 ML UDC (FOR ORAL USE ONLY) PO SCH ×2 (10:11→22:15)
[2017-10-18] MEDS: FOLIC ACID 1 MG TABLET (FP) PO SCH (10:11)
[2017-10-18] MEDS: CYANOCOBALAMIN (VITAMIN B-12) 100 MCG TABLET PO SCH (10:11)
[2017-10-18] MEDS: LORATADINE 10 MG TABLET PO SCH (10:11)
[2017-10-18] MEDS: NYSTATIN POWDER 100,000 UNITS/GM - 15 GM TOPICAL POWDER TP SCH (10:11)
--- NOTE | 2017-10-18 11:26 | PN ---
Progress Note, Physician History of Present Illness: No events. - Current Medication List Current Medications: Active Medications Calcium Carbonate/Cholecalciferol (Os-Gera 500+D -) 1 tab PO BID [facility] Last Admin: 10/18/17 10:10 Dose: 1 tab Carvedilol (Coreg -) 3.125 mg PO BID [facility] Last Admin: 10/18/17 10:10 Dose: 3.125 mg Cyanocobalamin (Vitamin B12 -) 100 mcg PO DAILY [facility] Last Admin: 10/18/17 10:11 Dose: 100 mcg Ferrous Sulfate (Feosol -) 325 mg PO BIDWM [facility] Last Admin: 10/18/17 10:10 Dose: 325 mg Folic Acid (Folic Acid -) 1 mg PO DAILY [facility] Last Admin: 10/18/17 10:11 Dose: 1 mg Furosemide (Lasix -) 60 mg PO BID@0600,1400 [facility] Last Admin: 10/18/17 06:27 Dose: Not Given Guaifenesin (Robitussin Dm -) 10 ml PO Q6H PRN PRN Reason: COUGH Last Admin: 10/17/17 22:10 Dose: 10 ml Lactulose (Cephulac (Oral Use)) 20 gm PO BID [facility] Last Admin: 10/18/17 10:11 Dose: 20 gm Loratadine (Claritin -) 10 mg PO DAILY [facility] Last Admin: 10/18/17 10:11 Dose: 10 mg Magnesium Oxide (Mag-Ox -) 400 mg PO BID [facility] Last Admin: 10/18/17 10:10 Dose: 400 mg Nystatin (Nystop Powder -) 1 applic TP DAILY [facility] Last Admin: 10/18/17 10:11 Dose: Not Given Spironolactone (Aldactone -) 50 mg PO BID [facility] Last Admin: 10/18/17 10:10 Dose: 50 mg - Objective Vital Signs: Vital Signs Temperature 98.6 F 10/18/17 06:00 Pulse Rate 75 10/18/17 09:04 Respiratory Rate 20 10/18/17 09:04 Blood Pressure 92/43 10/18/17 09:04 O2 Sat by Pulse Oximetry (%) 95 10/17/17 21:00 Constitutional: Yes: No Distress, Calm Eyes: Yes: Conjunctiva Clear HENT: Yes: Atraumatic Neck: Yes: Supple Gastrointestinal: Yes: Soft, Abdomen, Obese. No: Distention, Tenderness Neurological: Yes: Alert, Oriented. No: Asterixis, Tremors Labs: CBC, BMP 10/18/17 07:51 10/18/17 07:51 INR, PTT INR 2.08 (0.82-1.09) H 10/13/17 06:35 CBCD WBC 3.6 K/mm3 (4.0-10.0) L 10/18/17 07:51 RBC 2.73 M/mm3 (4.00-5.60) L 10/18/17 07:51 Hgb 8.9 GM/dL (11.7-16.9) L 10/18/17 07:51 Hct 26.5 % (35.4-49) L 10/18/17 07:51 MCV 96.9 fl (80-96) H 10/18/17 07:51 MCHC 33.5 g/dl (32.0-35.9) 10/18/17 07:51 RDW 17.3 % (11.9-15.9) H 10/18/17 07:51 Plt Count 60 K/MM3 (134-434) L 10/18/17 07:51 MPV 7.8 fl (7.5-11.1) 10/18/17 07:51 CMP Sodium 134 mmol/L (136-145) L 10/18/17 07:51 Potassium 5.1 mmol/L (3.5-5.1) 10/18/17 07:51 Chloride 97 mmol/L (98-107) L 10/18/17 07:51 Carbon Dioxide 34 mmol/L (21-32) H 10/18/17 07:51 Anion Gap 3 (8-16) L 10/18/17 07:51 BUN 30 mg/dL (7-18) H 10/18/17 07:51 Creatinine 1.9 mg/dL (0.7-1.3) H 10/18/17 07:51 Creat Clearance w eGFR 36.47 (>60) 10/18/17 07:51 Calcium 8.0 mg/dL (8.5-10.1) L 10/18/17 07:51 Total Bilirubin 2.8 mg/dL (0.2-1.0) H 10/18/17 07:51 AST 50 U/L (15-37) H 10/18/17 07:51 ALT 20 U/L (12-78) 10/18/17 07:51 Alkaline Phosphatase 96 U/L (45-117) 10/18/17 07:51 Total Protein 7.6 g/dl (6.4-8.2) 10/18/17 07:51 Albumin 1.5 g/dl (3.4-5.0) L 10/18/17 07:51 Problem List - Problems (1) 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 Good urine output. His limited mobility is not due to ascites. Continue with Lasix, aldactone, lactulose, neomycin Diuretics being titrated up by Nephrology 2 gm salt diet Good urine output Would plan D/c from GI point of view on maximum tolerated dieuretics, low salt diet and close follow Discussed with the patient
--- NOTE | 2017-10-18 11:56 | PN ---
Progress Note, Physician Chief Complaint: Liver cirrhosis Ascitis - Current Medication List Current Medications: Active Medications Calcium Carbonate/Cholecalciferol (Os-Gera 500+D -) 1 tab PO BID [facility] Last Admin: 10/18/17 10:10 Dose: 1 tab Carvedilol (Coreg -) 3.125 mg PO BID [facility] Last Admin: 10/18/17 10:10 Dose: 3.125 mg Cyanocobalamin (Vitamin B12 -) 100 mcg PO DAILY [facility] Last Admin: 10/18/17 10:11 Dose: 100 mcg Ferrous Sulfate (Feosol -) 325 mg PO BIDWM [facility] Last Admin: 10/18/17 10:10 Dose: 325 mg Folic Acid (Folic Acid -) 1 mg PO DAILY [facility] Last Admin: 10/18/17 10:11 Dose: 1 mg Furosemide (Lasix -) 60 mg PO BID@0600,1400 [facility] Last Admin: 10/18/17 06:27 Dose: Not Given Guaifenesin (Robitussin Dm -) 10 ml PO Q6H PRN PRN Reason: COUGH Last Admin: 10/17/17 22:10 Dose: 10 ml Lactulose (Cephulac (Oral Use)) 20 gm PO BID [facility] Last Admin: 10/18/17 10:11 Dose: 20 gm Loratadine (Claritin -) 10 mg PO DAILY [facility] Last Admin: 10/18/17 10:11 Dose: 10 mg Magnesium Oxide (Mag-Ox -) 400 mg PO BID [facility] Last Admin: 10/18/17 10:10 Dose: 400 mg Nystatin (Nystop Powder -) 1 applic TP DAILY [facility] Last Admin: 10/18/17 10:11 Dose: Not Given Spironolactone (Aldactone -) 50 mg PO BID [facility] Last Admin: 10/18/17 10:10 Dose: 50 mg - Objective Vital Signs: Vital Signs Temperature 98.6 F 10/18/17 06:00 Pulse Rate 67 10/18/17 10:00 Respiratory Rate 20 10/18/17 10:00 Blood Pressure 108/60 10/18/17 10:00 O2 Sat by Pulse Oximetry (%) 95 10/17/17 21:00 Constitutional: Yes: Well Nourished, No Distress, Calm Labs: CBC, BMP 10/18/17 07:51 10/18/17 07:51 INR, PTT INR 2.08 (0.82-1.09) H 10/13/17 06:35 Problem List - Problems (1) Anasarca Assessment/Plan: -improving -2/2 to liver cirrhosis Code(s): R60.1 - GENERALIZED EDEMA (2) Ascites Assessment/Plan: -improving -diuresis -seen by Nephrology and GI -chan to monitor I&O -IV furosemide changed to PO -spironolactone -labs Code(s): R18.8 - OTHER ASCITES (3) CKD (chronic kidney disease) Assessment/Plan: -seen by nephrology -Cr at baseline Code(s): N18.9 - CHRONIC KIDNEY DISEASE, UNSPECIFIED Qualifiers: Chronic kidney disease stage: stage 3 (moderate) Qualified Code(s): N18.3 - Chronic kidney disease, stage 3 (moderate) (4) 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
--- NOTE | 2017-10-18 11:58 | PN ---
Progress Note (short form) - Note Progress Note: Overall improving with diuresis. No acute events overnight. Intake & Output 10/15/17 10/16/17 10/17/17 10/18/17 23:59 23:59 23:59 23:59 Intake Total 6130 520 0800 200 Output Total 3500 4775 3900 1800 Balance -3575 -4365 -2890 -1600 Weight 295 lb 4.64 oz 284 lb 1.6 oz 260 lb 4.8 oz 281 lb Last Vital Signs Temp Pulse Resp BP Pulse Ox 98.6 F 67 20 108/60 95 10/18/17 06:00 10/18/17 10:00 10/18/17 10:00 10/18/17 10:00 10/17/17 21:00 Active Medications Calcium Carbonate/Cholecalciferol (Os-Gera 500+D -) 1 tab PO BID [facility] Last Admin: 10/18/17 10:10 Dose: 1 tab Carvedilol (Coreg -) 3.125 mg PO BID [facility] Last Admin: 10/18/17 10:10 Dose: 3.125 mg Cyanocobalamin (Vitamin B12 -) 100 mcg PO DAILY [facility] Last Admin: 10/18/17 10:11 Dose: 100 mcg Ferrous Sulfate (Feosol -) 325 mg PO BIDWM [facility] Last Admin: 10/18/17 10:10 Dose: 325 mg Folic Acid (Folic Acid -) 1 mg PO DAILY [facility] Last Admin: 10/18/17 10:11 Dose: 1 mg Furosemide (Lasix -) 60 mg PO BID@0600,1400 [facility] Last Admin: 10/18/17 06:27 Dose: Not Given Guaifenesin (Robitussin Dm -) 10 ml PO Q6H PRN PRN Reason: COUGH Last Admin: 10/17/17 22:10 Dose: 10 ml Lactulose (Cephulac (Oral Use)) 20 gm PO BID [facility] Last Admin: 10/18/17 10:11 Dose: 20 gm Loratadine (Claritin -) 10 mg PO DAILY [facility] Last Admin: 10/18/17 10:11 Dose: 10 mg Magnesium Oxide (Mag-Ox -) 400 mg PO BID [facility] Last Admin: 10/18/17 10:10 Dose: 400 mg Nystatin (Nystop Powder -) 1 applic TP DAILY [facility] Last Admin: 10/18/17 10:11 Dose: Not Given Spironolactone (Aldactone -) 50 mg PO BID [facility] Last Admin: 10/18/17 10:10 Dose: 50 mg Constitutional: Yes: NAD Eyes: Yes: WNL HENT: Yes: WNL Neck: Yes: WNL Cardiovascular: Yes: Regular Rate and Rhythm, S1, S2 Respiratory: Yes: diminished at the bases Gastrointestinal: Yes: Normal Bowel Sounds, Soft Extremities: Yes: WNL Edema: Yes Labs: Laboratory Results - last 24 hr 10/18/17 10/18/17 07:51 07:51 WBC 3.6 L RBC 2.73 L Hgb 8.9 L Hct 26.5 L MCV 96.9 H MCH 32.4 MCHC 33.5 RDW 17.3 H Plt Count 60 L MPV 7.8 Neutrophils % 66.4 Lymphocytes % 16.4 Monocytes % 11.1 H Eosinophils % 5.5 H Basophils % 0.6 Sodium 134 L Potassium 5.1 Chloride 97 L Carbon Dioxide 34 H Anion Gap 3 L BUN 30 H Creatinine 1.9 H Creat Clearance w eGFR 36.47 Random Glucose 80 Calcium 8.0 L Total Bilirubin 2.8 H AST 50 H ALT 20 Alkaline Phosphatase 96 Total Protein 7.6 Albumin 1.5 L Problem List - Problems (1) Pancytopenia Code(s): D61.818 - OTHER PANCYTOPENIA (2) Anasarca Code(s): R60.1 - GENERALIZED EDEMA (3) Ascites Code(s): R18.8 - OTHER ASCITES (4) CKD (chronic kidney disease) Code(s): N18.9 - CHRONIC KIDNEY DISEASE, UNSPECIFIED Qualifiers: Chronic kidney disease stage: stage 3 (moderate) Qualified Code(s): N18.3 - Chronic kidney disease, stage 3 (moderate) (5) Fatty liver Code(s): K76.0 - FATTY (CHANGE OF) LIVER, NOT ELSEWHERE CLASSIFIED (6) Symptomatic anemia Code(s): D64.9 - ANEMIA, UNSPECIFIED (7) CHF (congestive heart failure) Code(s): I50.9 - HEART FAILURE, UNSPECIFIED Qualifiers: Congestive heart failure type: unspecified Congestive heart failure chronicity: acute on chronic Qualified Code(s): I50.9 - Heart failure, unspecified (8) HLD (hyperlipidemia) Code(s): E78.5 - HYPERLIPIDEMIA, UNSPECIFIED Qualifiers: Hyperlipidemia type: mixed hyperlipidemia Qualified Code(s): E78.2 - Mixed hyperlipidemia (9) HTN (hypertension) Code(s): I10 - ESSENTIAL (PRIMARY) HYPERTENSION Qualifiers: Hypertension type: essential hypertension Qualified Code(s): I10 - Essential (primary) hypertension (10) Thrombocytopenia Code(s): D69.6 - THROMBOCYTOPENIA, UNSPECIFIED (11) Dyspnea Code(s): R06.00 - DYSPNEA, UNSPECIFIED Assessment/Plan Volume Overload Liver Cirrhosis Ascites r/o CHF CKD Morbid Obesity CHARLES AHI 42.5 - continue lasix, aldactone - monitor urine output, creatinine - daily weights - O2 to keep SpO2 >90% - outpt PFTs, PSG - DVT prophylaxis Dr Justin
[2017-10-18 14:17] LABS: TOTAL PROTEIN, URINE 14.5 mg/dL (Not Estab.)
--- NOTE | 2017-10-18 14:48 | PN ---
Progress Note, Physician History of Present Illness: Pt seen and examined at bedside. He is awake and alert. He denies shortness of breath. His lower extremity edema is starting to improve. - Current Medication List Current Medications: Active Medications Calcium Carbonate/Cholecalciferol (Os-Gera 500+D -) 1 tab PO BID [facility] Last Admin: 10/18/17 10:10 Dose: 1 tab Carvedilol (Coreg -) 3.125 mg PO BID [facility] Last Admin: 10/18/17 10:10 Dose: 3.125 mg Cyanocobalamin (Vitamin B12 -) 100 mcg PO DAILY [facility] Last Admin: 10/18/17 10:11 Dose: 100 mcg Ferrous Sulfate (Feosol -) 325 mg PO BIDWM [facility] Last Admin: 10/18/17 10:10 Dose: 325 mg Folic Acid (Folic Acid -) 1 mg PO DAILY [facility] Last Admin: 10/18/17 10:11 Dose: 1 mg Furosemide (Lasix -) 60 mg PO BID@0600,1400 [facility] Last Admin: 10/18/17 06:27 Dose: Not Given Guaifenesin (Robitussin Dm -) 10 ml PO Q6H PRN PRN Reason: COUGH Last Admin: 10/17/17 22:10 Dose: 10 ml Lactulose (Cephulac (Oral Use)) 20 gm PO BID [facility] Last Admin: 10/18/17 10:11 Dose: 20 gm Loratadine (Claritin -) 10 mg PO DAILY [facility] Last Admin: 10/18/17 10:11 Dose: 10 mg Magnesium Oxide (Mag-Ox -) 400 mg PO BID [facility] Last Admin: 10/18/17 10:10 Dose: 400 mg Nystatin (Nystop Powder -) 1 applic TP DAILY [facility] Last Admin: 10/18/17 10:11 Dose: Not Given Spironolactone (Aldactone -) 50 mg PO BID [facility] Last Admin: 10/18/17 10:10 Dose: 50 mg - Objective Vital Signs: Vital Signs Temperature 98.6 F 10/18/17 06:00 Pulse Rate 67 10/18/17 10:00 Respiratory Rate 20 10/18/17 10:00 Blood Pressure 108/60 10/18/17 10:00 O2 Sat by Pulse Oximetry (%) 95 10/17/17 21:00 Constitutional: Yes: Calm Eyes: Yes: Conjunctiva Clear HENT: Yes: Atraumatic Cardiovascular: Yes: S1, S2 Respiratory: Yes: CTA Bilaterally Gastrointestinal: Yes: Soft, Abdomen, Obese, Ascites Genitourinary: Yes: Chan Present Musculoskeletal: Yes: Muscle Weakness Edema: Yes Edema: LLE: 1+, RLE: 1+ Integumentary: Yes: Venous Stasis Changes Neurological: Yes: Oriented Psychiatric: Yes: Oriented Labs: CBC, BMP 10/18/17 07:51 10/18/17 07:51 INR, PTT INR 2.08 (0.82-1.09) H 10/13/17 06:35 Problem List - Problems (1) Anasarca Code(s): R60.1 - GENERALIZED EDEMA (2) Ascites Code(s): R18.8 - OTHER ASCITES (3) CKD (chronic kidney disease) Code(s): N18.9 - CHRONIC KIDNEY DISEASE, UNSPECIFIED Qualifiers: Chronic kidney disease stage: stage 3 (moderate) Qualified Code(s): N18.3 - Chronic kidney disease, stage 3 (moderate) (4) Fatty liver Code(s): K76.0 - FATTY (CHANGE OF) LIVER, NOT ELSEWHERE CLASSIFIED (5) 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125 mg BID [facility] Administration Cyanocobalamin 100 mcg 10/08/17 10:00 10/18/17 10:11 Vitamin B12 - PO 100 mcg DAILY [facility] Administration Ferrous Sulfate 325 mg 10/08/17 08:00 10/18/17 10:10 Feosol - PO 325 mg BIDWM [facility] Administration Folic Acid 1 mg 10/08/17 10:00 10/18/17 10:11 Folic Acid - PO 1 mg DAILY [facility] Administration Furosemide 60 mg 10/17/17 10:26 10/18/17 06:27 Lasix - PO Not Given BID@0600,1400 [facility] Guaifenesin 10 ml 10/12/17 22:49 10/17/17 22:10 Robitussin Dm - PO 10 ml Q6H PRN Administration COUGH Lactulose 20 gm 10/07/17 22:15 10/18/17 10:11 Cephulac (Oral Use) PO 20 gm BID [facility] Administration Loratadine 10 mg 10/08/17 10:00 10/18/17 10:11 Claritin - PO 10 mg DAILY [facility] Administration Magnesium Oxide 400 mg 10/15/17 10:15 10/18/17 10:10 Mag-Ox - PO 400 mg BID [facility] Administration Nystatin 1 applic 10/08/17 10:00 10/18/17 10:11 Nystop Powder - TP Not Given DAILY [facility] Spironolactone 50 mg 10/17/17 10:26 10/18/17 10:10 Aldactone - PO 50 mg BID [facility] Administration Impression 1. CKD 2. fluid overload 3. liver cirrhosis 4. fatty liver 5. morbid obesity 6. pancytopenia 7. CHF 8. GERD 9. hyperlipidemia 10. microscopic hematuria Plan - cont PO lasix - will decrease dose of aldactone and hold tonights dose as potassium is rising - d/c hcan - will need to monitor bmp as outpt and will need to evaluate his volume status - discussed with medical team - will follow Dr Reaves
--- NOTE | 2017-10-18 16:19 | DS ---
Physical Examination Vital Signs: Vital Signs Temperature 98.4 F 10/18/17 15:39 Pulse Rate 69 10/18/17 15:39 Respiratory Rate 20 10/18/17 15:39 Blood Pressure 100/59 10/18/17 15:39 O2 Sat by Pulse Oximetry (%) 95 10/17/17 21:00 Constitutional: Yes: Well Nourished, No Distress, Calm Cardiovascular: Yes: Regular Rate and Rhythm Respiratory: Yes: Regular Gastrointestinal: Yes: Ascites Musculoskeletal: Yes: Muscle Weakness Edema: Yes Edema: LLE: 2+, RLE: 2+ Peripheral Pulses WNL: Yes Neurological: Yes: Alert, Oriented Psychiatric: Yes: Alert, Oriented Labs: CBC, BMP 10/18/17 07:51 10/18/17 07:51 Discharge Summary Reason For Visit: ASCITES/GENERALIZED EDEMAN/SECONDARY ANEMIA Current Active Problems Anasarca (Acute) Ascites (Acute) CKD (chronic kidney disease) (Acute) Dyspnea (Acute) Fatty liver (Acute) 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 He is on lasix as an outpt. He denies fevers or chills. He is not sure what his baseline creatinine is. He denies diarrhea or vomiting. He denies shortness of breath. He follows with a framing manager in [facility]. He has been non compliant per the [place] records. He denies chest pain or palpitations. During his stay he was evaluated by Pulmonary, GI and nephrology. He was diuresed with IV lasix and spironolactone, chan was inserted, which will be discontinued before discharge. He will need close monitoring of I&O's and management of diureses to avoid dehydration which has happened in the past. He will also need regular follow up with [employer]. If following up with a primary therapist who saw him in the hospital an issue, he would need another primary therapist around the rehab. Condition: Stable - Instructions Diet, Activity, Other Instructions: -CBC/CMP on 10/21/17 -Follow up with Nephrology Dr Reaves or your own within next 1 week. -Monitor I&O's Referrals: Marco A Ragland [Primary Care Provider] - Melanie Reaves MD [Staff Physician] - [facility]position[facility] - Home Medications Comprehensive Discharge Medication List: Ambulatory Orders Furosemide [Lasix] 20 mg PO BID 07/31/17 Nystatin Powder [Nystop Powder -] 100,000 gm TP DAILY 08/10/17 Acetaminophen [Tylenol] 650 mg PO ASDIR 10/07/17 Cyanocobalamin (Vitamin B-12) [Vitamin B-12] 100 mcg PO DAILY 10/07/17 Guaifenesin [Robitussin] 15 ml PO 10/07/17 Menthol [Icy Hot] 1 each TP DAILY 10/07/17 Neomycin Sulfate 500 mg PO BID 10/07/17 Zinc Oxide TP DAILY 10/07/17 Albuterol 0.083% Nebulizer Kori [Ventolin 0.083% Nebulizer Soln -] 1 neb NEB Q6H PRN 10/08/17 Calcium 500-Vit D3 200 Caplet PO BID 10/08/17 Carvedilol [Coreg] 3.125 mg PO BID 10/08/17 Ferrous Sulfate [Iron] 325 mg PO BID 10/08/17 Folic Acid 1 mg PO 10/08/17 Lactulose PO BID 10/08/17 Loratadine [Claritin] 10 mg PO DAILY 10/08/17 Calcium 500Mg/Vit-D 200 Units [Os-Gera 500+D -] 1 tab PO BID tab 10/18/17 Carvedilol [Coreg -] 3.125 mg PO BID tablet 10/18/17 Ferrous Sulfate [Feosol] 325 mg PO BIDWM ud 10/18/17 Folic Acid - 1 mg PO DAILY tablet 10/18/17 Furosemide [Lasix -] 60 mg PO BID@0600,1400 tablet 10/18/17 Lactulose (Oral Use) [Cephulac -] 20 gm PO BID [facility] 10/18/17 Loratadine [Claritin -] 10 mg PO DAILY tablet 10/18/17 Magnesium Oxide [Mag-Ox -] 400 mg PO BID tablet 10/18/17 Spironolactone [Aldactone -] 25 mg PO BID tablet 10/18/17
[2017-10-19] MEDS: FUROSEMIDE 20 MG TABLET (FP) PO SCH ×2 (05:57→15:03)
[2017-10-19 07:52] LABS: ANION GAP 3 (8-16); BLOOD UREA NITROGEN 29 mg/dL (7-18); CALCIUM 7.5 mg/dL (8.5-10.1); CHLORIDE 99 mmol/L (98-107); CO2 30 mmol/L (21-32); GLUCOSE,RANDOM 76 mg/dL (74-106); POTASSIUM 5.2 mmol/L (3.5-5.1); SODIUM 132 mmol/L (136-145)
[2017-10-19] MEDS: FERROUS SO4 325 MG TABLET (FP) PO SCH (08:47)
[2017-10-19] MEDS ORDERED: SPIRONOLACTONE 25 MG TABLET (FP) PO SCH (10:00)
[2017-10-19] MEDS: CARVEDILOL 3.125 MG TABLET (FP) PO SCH (11:17)
[2017-10-19] MEDS: CALCIUM 500MG/VIT-D 200 UNITS COMBO TABLET (FP) PO SCH (11:17)
[2017-10-19] MEDS: LACTULOSE 20 GM/30 ML UDC (FOR ORAL USE ONLY) PO SCH (11:17)
[2017-10-19] MEDS: MAGNESIUM OXIDE 400 MG TABLET (FP) PO SCH (11:17)
[2017-10-19] MEDS: NYSTATIN POWDER 100,000 UNITS/GM - 15 GM TOPICAL POWDER TP SCH (11:18)
[2017-10-19] MEDS: CYANOCOBALAMIN (VITAMIN B-12) 100 MCG TABLET PO SCH (11:18)
[2017-10-19] MEDS: FOLIC ACID 1 MG TABLET (FP) PO SCH (11:18)
[2017-10-19] MEDS: LORATADINE 10 MG TABLET PO SCH (11:18)
--- NOTE | 2017-10-19 11:36 | PN ---
Progress Note, Physician Chief Complaint: Liver cirrhosis Ascitis History of Present Illness: NAD, edema improved seen by nephrology, GI and Pulmonary diuresing well -on PO diuretics - Current Medication List Current Medications: Active Medications Calcium Carbonate/Cholecalciferol (Os-Gera 500+D -) 1 tab PO BID [facility] Last Admin: 10/19/17 11:17 Dose: 1 tab Carvedilol (Coreg -) 3.125 mg PO BID [facility] Last Admin: 10/19/17 11:17 Dose: 3.125 mg Cyanocobalamin (Vitamin B12 -) 100 mcg PO DAILY [facility] Last Admin: 10/19/17 11:18 Dose: 100 mcg Ferrous Sulfate (Feosol -) 325 mg PO BIDWM [facility] Last Admin: 10/19/17 08:47 Dose: 325 mg Folic Acid (Folic Acid -) 1 mg PO DAILY [facility] Last Admin: 10/19/17 11:18 Dose: 1 mg Furosemide (Lasix -) 60 mg PO BID@0600,1400 [facility] Last Admin: 10/19/17 05:57 Dose: 60 mg Guaifenesin (Robitussin Dm -) 10 ml PO Q6H PRN PRN Reason: COUGH Last Admin: 10/17/17 22:10 Dose: 10 ml Lactulose (Cephulac (Oral Use)) 20 gm PO BID [facility] Last Admin: 10/19/17 11:17 Dose: 20 gm Loratadine (Claritin -) 10 mg PO DAILY [facility] Last Admin: 10/19/17 11:18 Dose: 10 mg Magnesium Oxide (Mag-Ox -) 400 mg PO BID [facility] Last Admin: 10/19/17 11:17 Dose: 400 mg Nystatin (Nystop Powder -) 1 applic TP DAILY [facility] Last Admin: 10/19/17 11:18 Dose: Not Given Spironolactone (Aldactone -) 25 mg PO BID [facility] Last Admin: 10/19/17 11:17 Dose: 25 mg - Objective Vital Signs: Vital Signs Temperature 97.8 F 10/19/17 06:02 Pulse Rate 20 L 10/19/17 06:02 Respiratory Rate 20 10/19/17 06:02 Blood Pressure 96/50 10/19/17 06:02 O2 Sat by Pulse Oximetry (%) 95 10/17/17 21:00 Constitutional: Yes: Well Nourished, No Distress, Calm Cardiovascular: Yes: Regular Rate and Rhythm Respiratory: Yes: Regular Gastrointestinal: Yes: Ascites Musculoskeletal: Yes: WNL Extremities: Yes: WNL Edema: Yes Edema: LLE: 2+, RLE: 2+ Peripheral Pulses WNL: Yes Neurological: Yes: Alert, Oriented Psychiatric: Yes: Alert, Oriented Labs: CBC, BMP 10/18/17 07:51 10/19/17 06:40 INR, PTT INR 2.08 (0.82-1.09) H 10/13/17 06:35 Problem List - Problems (1) Anasarca Assessment/Plan: -improving -2/2 to liver cirrhosis Code(s): R60.1 - GENERALIZED EDEMA (2) Ascites Assessment/Plan: -improving -diuresis -seen by Nephrology and GI -chan removed -IV furosemide changed to PO -spironolactone -labs Code(s): R18.8 - OTHER ASCITES (3) CKD (chronic kidney disease) Assessment/Plan: -seen by nephrology -Cr at baseline Code(s): N18.9 - CHRONIC KIDNEY DISEASE, UNSPECIFIED Qualifiers: Chronic kidney disease stage: stage 3 (moderate) Qualified Code(s): N18.3 - Chronic kidney disease, stage 3 (moderate) (4) 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
--- NOTE | 2017-10-19 12:34 | PN ---
Progress Note (short form) - Note Progress Note: Overall improving. Appears clinically better. No acute events overnight. Intake & Output 10/16/17 10/17/17 10/18/17 10/19/17 23:59 23:59 23:59 23:59 Intake Total 410 1010 400 Output Total 4775 3900 3000 Balance -4365 -2890 -2600 Weight 284 lb 1.6 oz 260 lb 4.8 oz 281 lb Last Vital Signs Temp Pulse Resp BP Pulse Ox 97.8 F 20 L 20 96/50 95 10/19/17 06:02 10/19/17 06:02 10/19/17 06:02 10/19/17 06:02 10/17/17 21:00 Active Medications Calcium Carbonate/Cholecalciferol (Os-Gera 500+D -) 1 tab PO BID [facility] Last Admin: 10/19/17 11:17 Dose: 1 tab Carvedilol (Coreg -) 3.125 mg PO BID [facility] Last Admin: 10/19/17 11:17 Dose: 3.125 mg Cyanocobalamin (Vitamin B12 -) 100 mcg PO DAILY [facility] Last Admin: 10/19/17 11:18 Dose: 100 mcg Ferrous Sulfate (Feosol -) 325 mg PO BIDWM [facility] Last Admin: 10/19/17 08:47 Dose: 325 mg Folic Acid (Folic Acid -) 1 mg PO DAILY [facility] Last Admin: 10/19/17 11:18 Dose: 1 mg Furosemide (Lasix -) 60 mg PO BID@0600,1400 [facility] Last Admin: 10/19/17 05:57 Dose: 60 mg Guaifenesin (Robitussin Dm -) 10 ml PO Q6H PRN PRN Reason: COUGH Last Admin: 10/17/17 22:10 Dose: 10 ml Lactulose (Cephulac (Oral Use)) 20 gm PO BID [facility] Last Admin: 10/19/17 11:17 Dose: 20 gm Loratadine (Claritin -) 10 mg PO DAILY [facility] Last Admin: 10/19/17 11:18 Dose: 10 mg Magnesium Oxide (Mag-Ox -) 400 mg PO BID [facility] Last Admin: 10/19/17 11:17 Dose: 400 mg Nystatin (Nystop Powder -) 1 applic TP DAILY [facility] Last Admin: 10/19/17 11:18 Dose: Not Given Spironolactone (Aldactone -) 25 mg PO BID [facility] Last Admin: 10/19/17 11:17 Dose: 25 mg Constitutional: Yes: NAD Eyes: Yes: WNL HENT: Yes: WNL Neck: Yes: WNL Cardiovascular: Yes: Regular Rate and Rhythm, S1, S2 Respiratory: Yes: diminished at the bases Gastrointestinal: Yes: Normal Bowel Sounds, Soft Extremities: Yes: WNL Edema: Yes Labs: Laboratory Results - last 24 hr 10/09/17 10/19/17 06:00 06:40 Sodium 132 L Potassium 5.2 H Chloride 99 Carbon Dioxide 30 Anion Gap 3 L BUN 29 H Creatinine 2.0 H Random Glucose 76 Calcium 7.5 L Ldgvn-9-Rvyrhdwbu (%) 1.2 Nvvzc-9-Lgthfnvxs (%) 9.3 Beta Globulins (%) 26.3 Gamma Globulins (%) 43.5 M-Aubrey % Not observed Urine Total Protein 14.5 Urine PEP Interpret 19.6 Ref Test Comments Problem List - Problems (1) Pancytopenia Code(s): D61.818 - OTHER PANCYTOPENIA (2) Anasarca Code(s): R60.1 - GENERALIZED EDEMA (3) Ascites Code(s): R18.8 - OTHER ASCITES (4) CKD (chronic kidney disease) Code(s): N18.9 - CHRONIC KIDNEY DISEASE, UNSPECIFIED Qualifiers: Chronic kidney disease stage: stage 3 (moderate) Qualified Code(s): N18.3 - Chronic kidney disease, stage 3 (moderate) (5) Fatty liver Code(s): K76.0 - FATTY (CHANGE OF) LIVER, NOT ELSEWHERE CLASSIFIED (6) Symptomatic anemia Code(s): D64.9 - ANEMIA, UNSPECIFIED (7) CHF (congestive heart failure) Code(s): I50.9 - HEART FAILURE, UNSPECIFIED Qualifiers: Congestive heart failure type: unspecified Congestive heart failure chronicity: acute on chronic Qualified Code(s): I50.9 - Heart failure, unspecified (8) HLD (hyperlipidemia) Code(s): E78.5 - HYPERLIPIDEMIA, UNSPECIFIED Qualifiers: Hyperlipidemia type: mixed hyperlipidemia Qualified Code(s): E78.2 - Mixed hyperlipidemia (9) HTN (hypertension) Code(s): I10 - ESSENTIAL (PRIMARY) HYPERTENSION Qualifiers: Hypertension type: essential hypertension Qualified Code(s): I10 - Essential (primary) hypertension (10) Thrombocytopenia Code(s): D69.6 - THROMBOCYTOPENIA, UNSPECIFIED (11) Dyspnea Code(s): R06.00 - DYSPNEA, UNSPECIFIED Assessment/Plan Volume Overload Liver Cirrhosis Ascites r/o CHF CKD Morbid Obesity CHARLES AHI 42.5 - Lasix / aldactone - outpt PFTs, PSG - DVT prophylaxis - D/C planning Dr Justin
[2017-10-19 13:57] VITALS: BP 105/62; PULSE 69; TEMP 98
--- NOTE | 2017-10-19 16:41 | PN ---
Progress Note, Physician History of Present Illness: Pt seen and examined at bedside. He is being discharged today. He denies shortness of breath. - Objective Vital Signs: Vital Signs Temperature 98.0 F 10/19/17 10:00 Pulse Rate 69 10/19/17 10:00 Respiratory Rate 20 10/19/17 10:00 Blood Pressure 105/62 10/19/17 10:00 O2 Sat by Pulse Oximetry (%) 95 10/17/17 21:00 Constitutional: Yes: Calm Eyes: Yes: Conjunctiva Clear HENT: Yes: Atraumatic Cardiovascular: Yes: S1, S2 Respiratory: Yes: CTA Bilaterally Gastrointestinal: Yes: Soft, Abdomen, Obese Genitourinary: Yes: WNL Musculoskeletal: Yes: WNL Edema: Yes Edema: LLE: 1+, RLE: 1+ Neurological: Yes: Oriented Psychiatric: Yes: Oriented Labs: CBC, BMP 10/18/17 07:51 10/19/17 06:40 INR, PTT INR 2.08 (0.82-1.09) H 10/13/17 06:35 Problem List - Problems (1) Anasarca Code(s): R60.1 - GENERALIZED EDEMA (2) Ascites Code(s): R18.8 - OTHER ASCITES (3) CKD (chronic kidney disease) Code(s): N18.9 - CHRONIC KIDNEY DISEASE, UNSPECIFIED Qualifiers: Chronic kidney disease stage: stage 3 (moderate) Qualified Code(s): N18.3 - Chronic kidney disease, stage 3 (moderate) (4) Fatty liver Code(s): K76.0 - FATTY (CHANGE OF) LIVER, NOT ELSEWHERE CLASSIFIED (5) 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 CKD 2. fluid overload 3. liver cirrhosis 4. fatty liver 5. morbid obesity 6. pancytopenia 7. CHF 8. GERD 9. hyperlipidemia 10. microscopic hematuria Plan - change lasix to 40 po q 12 hrs - stop spironolactone - wrote new meds on d/c papers - check bmp in am at facility - will need to have volume status monitored closely - will need bloodwork in rehab in am - plan discussed with pt - will follow Dr Reaves
== END 2017-10-19 16:25 | DRG 432 ==
LOC: JER 16:19 → JERBED 21:25 → J4W 22:32 → J6S 10-12 19:53
PROVIDERS: ADMIT Internal Medicine; ATTEND Family Medicine
PROC: 30233N1 Transfusion of Nonautologous Red Blood Cells into Peripheral Vein, Percutaneous Approach (ICD-10-PCS; principal; 2017-10-08)
DX: K74.60 Unspecified cirrhosis of liver (principal); K76.7 Hepatorenal syndrome; R18.8 Other ascites; D61.818 Other pancytopenia; Z68.43 Body mass index [BMI] 50.0-59.9, adult; D68.9 Coagulation defect, unspecified; D64.9 Anemia, unspecified; E66.01 Morbid (severe) obesity due to excess calories; K76.0 Fatty (change of) liver, not elsewhere classified; E87.70 Fluid overload, unspecified; E78.5 Hyperlipidemia, unspecified; K21.9 Gastro-esophageal reflux disease without esophagitis; R31.29 Other microscopic hematuria; R60.1 Generalized edema; D69.6 Thrombocytopenia, unspecified; N18.3 Chronic kidney disease, stage 3 (moderate); I95.9 Hypotension, unspecified; I50.9 Heart failure, unspecified
CPT/HCPCS: 36415; 36430; 71045-TC; 76705-TC; 76775-TC; 76856-TC; 80048; 80053; 81003; 81015; 82105; 82140; 82248; 82272; 82436; 82550; 82570; 82728; 82784; 83540; 83550; 83605; 83735; 83880; 84100; 84133; 84155; 84156; 84157; 84165; 84300; 84484; 85025; 85027; 85610; 85730; 86334; 86850; 86900; 86901; 86922; 87081; 93005; 93010; 94640; 97162-GP; 99285-25; P9038; P9047; P9058